=== PATIENT | female | born 1990 | race Caucasian/White ===

== ENCOUNTER 2017-09-13 14:26 | Emergency (ER) | payer BC, SELFPAY ==
[2017-09-13 14:28] VITALS: BP 153/106; PULSE 101; RESP 16; TEMP 36.4; O2SAT 100; BMI 43.4
[2017-09-13 14:57] VITALS: BP 150/79; PULSE 93; RESP 14; O2SAT 98
--- NOTE | 2017-09-13 15:16 | ED.VISSUMM ---
- ER Visit Summary Date of Service: 09/13/17 Chief Complaint: Abdominal pain History of Present Illness: The patient is a 27 F who presents with right-sided abdominal pain that has been getting worse over the past 4 days. Patient states her pain has been gradually getting worse. Patient denies any fevers or chills. Patient denies any nausea or vomiting. Patient denies any diarrhea. Patient denies any hematemesis, hematochezia, or melena. Denies any dysuria or hematuria. Patient states her last menstrual period was August 25. Patient describes her pain as sharp and throbbing. Patient denies any radiation of the pain. Physical Examination: Vital signs are stable. Patient is afebrile. Patient is in no acute distress. Oral mucosa is pink and moist. Neck is supple. Trachea is midline. Heart was regular rate and rhythm. Lungs are clear and equal bilaterally. There is good respiratory effort noted. Abdomen is soft. Bowel sounds are normal. There is right upper and right lower quadrant tenderness. There is no rebound or guarding noted. Cranial nerves II through XII are intact. There are no focal motor or sensory deficits noted. The remaining physical exam is within normal limits. Test Results: CT scan of the abdomen and pelvis showed a calcified gallstone but no evidence of cholecystitis. There is nonspecific ileus. There is no obstruction noted. CBC showed slight leukocytosis of 12.8. Conference of metabolic profile showed a slight elevation of the alk phos of 151 but was otherwise within normal limits. Urinalysis was normal. Emergency Department Course and Treatment: Patient was given a bolus of normal saline. Patient felt better on reevaluation. Patient was advised of her findings. Patient was instructed to follow-up with her primary care physician in 5-7 days for further evaluation. Patient understood and was agreeable with the plan. All questions were answered. Treatment Plan: Patient was given a prescription for Naprosyn for pain. Disposition: Discharge home Impression: Cholelithiasis, abdominal pain This note was generated with [employer] dictation software. It may contain incorrect words, spelling, and punctuation that were not noted in review of the chart prior to signing ED Disposition - Plan for ED Patient: Disposition: Home or Assisted Living Chief Complaint: Abd Pain Diagnosis: Abdominal pain, Cholelithiasis Instructions: ED Abdominal Pain Unkn Cause Prescriptions: Naproxen [Naprosyn] 500 mg PO BID PRN PRN #20 tab PRN Reason: Pain Referrals: Care Physician,No Primary [Primary Care Provider] -
--- NOTE | 2017-09-13 15:20 | CT_ITS ---
STUDY: CT ABDOMEN AND PELVIS WITHOUT CONTRAST REASON FOR EXAM: Female, 27 years old. Increasing lower abdominal pain RADIATION DOSAGE (If Supplied By Facility): CTDIvol = ( 23.83 ) mGy, DLP = ( 1244.17 ) mGycm TECHNIQUE: Transaxial images were obtained from the dome of the diaphragm to the symphysis pubis without oral contrast, and without intravenous contrast. Sagittal and coronal images were reconstructed. Individualized dose optimization techniques were used for this CT. COMPARISON: None. FINDINGS: The visualized lung bases are unremarkable. The visualized portions of the heart are within normal limits. Normal liver. There is a large solitary rim calcified gallstone within distended gallbladder without evidence for acute cholecystitis. Normal spleen. Normal pancreas. Normal bilateral adrenal glands. Normal right kidney. Normal left kidney. Normal visualized stomach. Mild nonspecific ileus pattern. No evidence for small bowel obstruction or pneumoperitoneum. Minor diverticular changes in the sigmoid colon without evidence for acute diverticulitis. The appendix is visualized and appears normal. Normal abdominal aorta. Normal inferior vena cava. Normal retroperitoneum. Normal urinary bladder. Uterus is mildly deviated towards the right. There are minor cystic changes of the ovaries. Normal abdominal wall. Normal osseous structures. CT/Abdomen/Pelvis without Cont IMPRESSION: Distended gallbladder with calcified gallstone without definitive evidence for acute cholecystitis Mild nonspecific ileus without evidence for small bowel obstruction. Minor diverticular disease of the sigmoid colon without evidence for acute diverticulitis Electronically Signed: Brent Cui MD at 17:33 EDT , Service support ,
[2017-09-13 15:34] LABS: Bacteria 0 SEEN /hpf (None Seen); Mucous, Urine 0 SEEN /hpf (<or=2+); Red Blood Cells-Urine 0 SEEN /hpf (0-5); White Blood Cells 0 SEEN /hpf (0-5)
[2017-09-13] MEDS: 0.9% Normal Saline 1,000 ML 1000 ML IV (15:44)
[2017-09-13 16:00] LABS: Color, Urine Yellow (Yellow); Glucose, Dipstick Normal (Normal); Ketone-Dipstick Negative (Negative); Leukocyte Esterase-Dipstick Negative /ul (Negative); Nitrite-Dipstick Negative (Negative); Occult Blood-Urine Negative /ul (Negative); Protein-Dipstick Negative (Negative); Urine Bilirubin Dipstick Negative (Negative); Urine Clarity Sl. Cloudy (Clear); Urine Urobilinogen Normal (Normal)
[2017-09-13 16:12] LABS: Internal QC Validated? YES +Cl - CLEAR BKGD; Pregnancy, Urine Negative Negative
[2017-09-13 16:25] LABS: Absolute Lymphocyte Count 2.61 X10^3/ul (0.83-4.51); Absolute Neutrophil Count 8.9 X10^3/uL (2.0-7.7); Basophil# 0.02 X10^3/uL; Basophil% 0.2 % (0-1); Eosinophil# 0.12 X10^3/uL; Eosinophils% 0.9 % (0-5); Hemoglobin 14.1 g/dl (12.0-15.0); Lymphocyte # 2.61 X10^3/ul (4.0); Lymphocyte % 20.5 % (19-41); Mean Corp Hgb Conc 32.8 g/gl (32-36); Mean Corpuscular Volume 85.5 fL (81-99); Mean Platelet Vol. 9.2 fl (6.2-12.0); Monocyte# 1.06 X10^3/uL; Monocyte% 8.3 % (0-10); Neutrophil # 8.92 X10^3/uL (2.7-7.7); Neutrophil % 69.9 % (47-70); POSITIVE COUNT NO; POSITIVE DIFFERENTIAL NO; POSITIVE MORPHOLOGY NO; Platelet Count 308 K/mm3 (150-450); RBC Distribution Width CV 13.5 % (11.6-14.6); RBC Distribution Width SD 42.1 fl (35.1-43.9); Red Blood Count 5.03 M/mm3 (4.2-5.4); White Blood Count 12.8 K/mm3 (4.4-11.0)
[2017-09-13 16:27] LABS: ALB/GLOB Ratio 0.7 RATIO (0.9-2.4); AST(SGOT) 18 U/L (15-37); Alanine Aminotransfer ALT/SGPT 30 U/L (13-56); Albumin, Serum 3.8 g/dL (3.2-5.0); Alkaline Phosphatase 151 U/L (45-117); Anion Gap 8 (5-15); BUN 10 mg/dL (7-18); BUN/Creat Ratio 17.3 RATIO (10-20); Calcium,Total 8.9 mg/dL (8.5-10.1); Chloride 104 mmol/L (98-107); Creatinine, Serum 0.58 mg/dL (0.55-1.02); EST Glomerular Filtration Rate 130 mL/min (>60); Est Glom Filt Rate - Afr Amer 158 mL/min (>60); Estimated Creatinine Clearance 149.57 ml/min; Globulin 5.1 g/dL (2.2-4.2); Glucose 81 mg/dL (74-106); Lipase 86 U/L (73-393); Potassium 3.8 mmol/L (3.5-5.1); Protein, Total 8.9 g/dL (6.4-8.2); Sodium Level 139 mmol/L (136-145)
[2017-09-13 16:30] LABS: Squamous Epithelial Cells - UA 0-5 SEEN /hpf (5-10)
[2017-09-13 16:51] VITALS: BP 164/80; PULSE 60; RESP 16; O2SAT 97
[2017-09-13 18:49] VITALS: BP 169/107; PULSE 94; RESP 16; O2SAT 95
[2017-09-13 18:50] VITALS: BP 169/107; PULSE 94; RESP 16; O2SAT 95
== END 2017-09-13 18:51 | disposition home or self-care (01) ==
PROVIDERS: Emergency Provider Emergency Medicine
DX: K80.20 Calculus of gallbladder without cholecystitis without obstruction (principal); R10.11 Right upper quadrant pain; R10.31 Right lower quadrant pain; D72.829 Elevated white blood cell count, unspecified; Z86.718 Personal history of other venous thrombosis and embolism; Z72.0 Tobacco use
CPT/HCPCS: 74176; 80053; 81001; 81025; 83690; 85025; 96360; 96361; 99283; J7030

== ENCOUNTER 2018-06-19 06:51 | Emergency (ER) | payer OTHER, SELFPAY ==
[2018-06-19 06:51] VITALS: BP 185/93; PULSE 99; RESP 16; TEMP 37.1; O2SAT 95; BMI 46.5
--- NOTE | 2018-06-19 07:08 | US_ITS ---
STUDY: ABDOMINAL ULTRASOUND - RIGHT UPPER QUADRANT REASON FOR VISIT: Female, 28 years old. Right upper quadrant pain x3 days TECHNIQUE: Ultrasound evaluation of the right upper quadrant was performed with real-time and static hess-scale imaging. TECHNICAL QUALITY: Adequate. COMPARISON: None. FINDINGS: Liver: The liver measures 21 cm. There is increased echogenicity consistent with fatty infiltration. The bile ducts are within normal limits. There is hepatic color flow. The direction of portal flow is hepatopetal. There is no demonstrated mass lesion. Gallbladder: Normal distended gallbladder. The gallbladder wall measures 2.7 mm. There is a positive sonographic Jarrell's sign. There is no pericholecystic fluid. Large stone measuring 2.9 x 2.5 cm near the gallbladder neck. There is also gallbladder sludge. Common Bile Duct (C.B.D.): The common bile duct measures 4.6 mm. Pancreas: Normal size of the head, body and tail of the pancreas. There is normal echogenicity of the pancreas. There is no demonstrated pancreatic mass or cyst. Right Kidney: Normal size of the right kidney. The right kidney measures 11.4 cm. Normal renal cortex. The right cortex measures 1.6 cm. There is no demonstrated renal mass or cyst. There is no right hydronephrosis. US/Gallbladder IMPRESSION: Positive sonographic Jarrell sign with large gallbladder stone near the gallbladder neck as well as prominently distended gallbladder. Gallbladder sludge is also noted. There is no evidence of wall thickening or pericholecystic fluid however. Hepatomegaly with hepatic steatosis. Electronically Signed: Seth Thorne DO at 8:18 EST Tel , Service support ,
[2018-06-19] MEDS: Ondansetron 4 MG/2 ML Vial IV (07:23)
[2018-06-19] MEDS: 0.9% Normal Saline 1,000 ML 1000 ML IV (07:23)
[2018-06-19] MEDS: Ketorolac 30 MG/ML Syringe IV (07:23)
--- NOTE | 2018-06-19 07:50 | ED.DCSUM_ITS ---
- ER Visit Summary Date of Service: 06/19/18 Chief Complaint: Abdominal pain History of Present Illness: The patient is a 28 F with no primary care physician. She reports that she has upper abdominal pain that began 3 days ago. Sick continuous aching, sharp pain. It is severe at worst and moderate curren tly. It is worsened by eating and relieved by nothing. She reports that she is been nausea and vomited twice. No blood in her emesis. She had one episode of diarrhea yesterday. No blood in her stools or black tarry stools. No dysuria or frequency. Her last menstrual period was 3 weeks ago. Patient reports that she does have a known gallstone. However, she denies any fatty or spicy food intolerance. Physical Examination: Vitals: Stable. Afebrile. General: Well-nourished and well-developed. Head: Normocephalic atraumatic. Neck: Supple, no lymphadenopathy. No JVD. Nontender. Cardiovascular: Regular rate and rhythm. No murmurs. Respiratory: No respiratory distress. Clear to auscultation bilaterally. Abdominal: Soft, moderate tenderness palpation in the epigastric region right upper quadrant, positive Jarrell's sign, nondistended, normal bowel sounds. No guarding, rebound, or peritoneal signs. Back: Nontender. Extremities: Nontender, no edema. Skin: Normal color, no rash. Neurologic: Alert and oriented ?3. Cranial nerves II through XII are intact. Normal strength and sensation. Psych: Normal affect. Test Results: CBC is more for a white count of 14.0 with 74 segmented neutrophils and 17 lymphocytes. Chem-7 is more for glucose 108. LFTs marked for an alk phos of 154. Lipase is 63. Patency test is negative. Right upper q uadrant ultrasound shows a positive Jarrell sign with a large gallbladder stone near the neck and a prominently distended gallbladder. There is sludge present. Wall is 2.7 mm. Common bile duct is 4.6 mm. There is no pericholecystic fluid. Emergency Department Course and Treatment: Patient had an IV placed. She was given Toradol and Zofran IV. She is resting comfortably. Treatment Plan: The patient was discussed with Dr. Weber. She feels well and would like to go home. She will be discharged instructed to follow-up Dr. Sherrie harkins in the office tomorrow. She is given prescription for [place] and Zofran. Return to the emergency department for any worsening symptoms. Disposition: To home in improved and stable condition. Impression: 1. Symptomatic cholelithiasis. This note was generated with [employer] dictation software. It may contain incorrect words, spelling, and punctuation that were not noted in review of the chart prior to signing ED Disposition - Plan for ED Patient: Chief Complaint: Abd Pain Instructions: ED Gallbladder Infec Poss Prescriptions: Hydrocodone Bitart/Apap 5-325 [[place] 5MG-325MG] 1 tablet PO Q4H PRN PRN 2 Days #10 tablet PRN Reason: Pain Ondansetron [Zofran Odt] 4 mg PO Q8H PRN PRN #10 tablet PRN Reason: Nausea Referrals: Gene Dickson MD [STAFF PHYSICIAN] - 1 Day for another exam
[2018-06-19 07:59] LABS: Absolute Lymphocyte Count 2.35 X10^3/ul (0.83-4.51); Absolute Neutrophil Count 10.4 X10^3/uL (2.0-7.7); Basophil# 0.02 X10^3/uL; Basophil% 0.1 % (0-1); Eosinophil# 0.04 X10^3/uL; Eosinophils% 0.3 % (0-5); Hematocrit 43.7 % (37-47); Hemoglobin 14.3 g/dl (12.0-15.0); Lymphocyte # 2.35 X10^3/ul (4.0); Lymphocyte % 16.8 % (19-41); Mean Corp Hgb Conc 32.7 g/gl (32-36); Mean Corpuscular Hgb 28.4 pg (27.0-32.0); Mean Corpuscular Volume 86.7 fL (81-99); Monocyte# 1.12 X10^3/uL; Neutrophil # 10.41 X10^3/uL (2.7-7.7); Neutrophil % 74.4 % (47-70); Platelet Count 362 K/mm3 (150-450); RBC Distribution Width CV 12.8 % (11.6-14.6); RBC Distribution Width SD 40.4 fl (35.1-43.9); Red Blood Count 5.04 M/mm3 (4.2-5.4)
[2018-06-19 08:02] LABS: POSITIVE COUNT NO; POSITIVE DIFFERENTIAL NO; POSITIVE MORPHOLOGY NO
[2018-06-19 08:14] LABS: ALB/GLOB Ratio 0.7 RATIO (0.9-2.4); AST(SGOT) 20 U/L (15-37); Alanine Aminotransfer ALT/SGPT 38 U/L (13-56); Albumin, Serum 3.8 g/dL (3.2-5.0); Alkaline Phosphatase 154 U/L (45-117); Anion Gap 10 (5-15); BUN 7 mg/dL (7-18); Calcium,Total 9.1 mg/dL (8.5-10.1); Chloride 103 mmol/L (98-107); Creatinine, Serum 0.58 mg/dL (0.55-1.02); EST Glomerular Filtration Rate 128 mL/min (>60); Est Glom Filt Rate - Afr Amer 155 mL/min (>60); Estimated Creatinine Clearance 148.22 ml/min; Globulin 5.4 g/dL (2.2-4.2); Glucose 108 mg/dL (74-106); Lipase 63 U/L (73-393); Potassium 3.7 mmol/L (3.5-5.1); Protein, Total 9.2 g/dL (6.4-8.2); Sodium Level 137 mmol/L (136-145)
[2018-06-19 08:18] LABS: Pregnancy, Serum, hCG Quali. NEGATIVE Negative (0-9 Nonpreg)
[2018-06-19 08:51] VITALS: RESP 17
[2018-06-19 09:58] VITALS: PULSE 78; RESP 17; O2SAT 98
== END 2018-06-19 09:59 | disposition home or self-care (01) ==
PROVIDERS: Emergency Provider Emergency Medicine
DX: K80.20 Calculus of gallbladder without cholecystitis without obstruction (principal); Z72.0 Tobacco use
CPT/HCPCS: 76705; 80053; 83690; 84703; 85025; 96361; 96374; 96375; 99283; J7030; A4216; J2405

== ENCOUNTER 2018-06-21 06:37 | Day surgery (SDC) | payer OTHER, SELFPAY ==
[2018-06-21] VITALS (7 sets, daily range): BP systolic 106–167; BP diastolic 69–93; PULSE 65–88; RESP 16–18; TEMP 36.4–36.6; O2SAT 96–100; BMI 46.3
--- NOTE | 2018-06-21 | GALL_PTH ---
PATIENT: SKYLAR JIMENEZ LOC: [facility] [place] U#:[id number] AGE/SX: 28/F ROOM: RE06/21/[address]: Dr. Cora Cevallos MD : [id number] BED: DIS: 06/21/2018 SPEC #: [id number] RECD: 06/21/18 14:41 STATUS: VIANEY REMarce #: [id number] NICK: 06/21/18 00:[address]: Cora Cevallos DEPT: SURGICAL PATHOLOGY RECD BY: Jose Rodriguez ENTERED: 06/21/18 14:41 SP TYPE: PUMA ROSALES DR: No Primary Care Phys Tissues: Gallbladder, NOS Procedures: Surgery Specimen Level III HEADER OPERATION: Laparoscopic cholecystectomy PRE-OP DIAGNOSIS: Cholelithiasis TISSUE SUBMITTED: Gallbladder MICROSCOPIC DIAGNOSIS Gallbladder, cholecystectomy: Acute and chronic cholecystitis and cholelithiasis. SJ:kasi 06/22/18 MICROSCOPIC DESCRIPTION Slides are reviewed. GROSS DESCRIPTION Received is one container labeled with the patient's name and designated gallbladder. The specimen consists of a gallbladder measuring 12 cm in length and up to 5.5 cm in diameter. The external surface is pink-akins, smooth and glistening for the most part. Focally it is granular, hemorrhagic and contains cautery artifact. The gallbladder contains hemorrhagic bile and contains one ovoid brown stone measuring 3.5 x 2.5 x 2.5 cm. The mucosa is bile-stained and without any mass lesions. The gallbladder wall measures up to 0.5 cm in thickness. Renal Technician sections from the gallbladder and the cystic duct are submitted in one cassette. / SJ:rg 06/21/18 TC:2 CPT: 84348
--- NOTE | 2018-06-21 06:44 | EKG12_ITS ---
Test Reason : PREOP Blood Pressure : / mmHG Vent. Rate : 079 BPM Atrial Rate : 079 BPM P-R Int : 154 ms QRS Dur : 084 ms QT Int : 362 ms P-R-T Axes : 076 033 044 degrees QTc Int : 415 ms Normal sinus rhythm Normal ECG Confirmed by CAROLINA BOWMAN, MAGAN ([id number]), writer editor ARLETTE BROWN ([id number]) on 06/22/2018 4:19:37 PM Referred By: Cora Cevallos Confirmed By:MAGAN FIGUEROA MD
[2018-06-21 07:01] LABS: Internal QC Validated? YES +Cl - CLEAR BKGD; Pregnancy, Urine Negative Negative
--- NOTE | 2018-06-21 08:17 | OP.PN_ITS ---
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: Alia Salcedo Pre-Operative Diagnosis: cholelithiasis, right upper quadrant abdominal pain Post-Operative Diagnosis: cholelithiasis, right upper quadrant abdominal pain, acute on chronic cholecystitis with obstruction, hydrops Surgery/Procedure Performed:: laparoscopic cholecystectomy Description of Surgical Findings:: acute on chronic cholecystitis with large obstructing stone - hydrops Estimated Blood Loss: 30 ml Specimen's removed: gallbladder and contents Type of Anesthesia:: General ASA Class: ASA3 Severe Disease - Admit VTE Documentation VTE Present on Admission: Yes VTE Mechan Device Prophylaxis: SCD's
--- NOTE | 2018-06-21 08:17 | PCM.DC.GB ---
Discharge Diet: No Restrictions - avoid carbonated beverages for a couple of days drink plenty of fluids such as water Discharge Activity: Return to Normal Activity, May not drive while taking narcotic pain medications. Return to work on:: 07/03/18 - see lifting restrictions below Lifting Restrictions: no lifting/pushing/pulling greater than 20 pounds for about 2 weeks Additional Activity Instructions:: lifting restriction in place until 07/07/18 Call your doctor if your incision/area has: Continuous Slow Oozing, Foul Smelling Discharge Call your doctor if you observe: Fever of 101 or Higher Additional Dressing/Incision Instructions:: Leave dressings in place. May shower. Do not soak - no tub baths/swimming until further notice Additional Instructions: Pain medication regimen: may take the following - acetaminophen 650 mg, then in three hours take 600 mg ibuprofen, then in three hours take 650 mg acetaminophen, then in three hours take 600 mg ibuprofen, and so on (can continue this for a few days) may take narcotic pain medication for breakthrough pain and at night to help you go to sleep Allergies/Adverse Reactions: Allergies No Known Allergies Allergy (Verified 06/20/18 14:43) Medications to take at Discharge Ondansetron [Zofran Odt] 4 mg PO Q8H PRN PRN #10 tablet 06/19/18 Oxycodone [Oxyir] 5 mg PO Q8H PRN PRN 5 Days #15 tab 06/21/18 The following prescriptions were given: Oxycodone [Oxyir] 5 mg PO Q8H PRN PRN 5 Days #15 tab PRN Reason: Mod-Severe Pain (4-10/10) Primary Care Physician: Care Physician,No Primary [Primary Care Provider] - Test Results: Test results from this visit will be discussed in further detail at your follow-up appointment, if applicable. Please Follow Up With: Cora Cevallos MD - call When: to be seen in 1-2 weeks, please call for date and time, thank you
--- NOTE | 2018-06-21 08:21 | DCINST_ITS ---
Discharge Diet: No Restrictions - avoid carbonated beverages for a couple of days drink plenty of fluids such as water Discharge Activity: Return to Normal Activity, May not drive while taking narcotic pain medications. Return to work on:: 07/03/18 - see lifting restrictions below Lifting Restrictions: no lifting/pushing/pulling greater than 20 pounds for about 2 weeks Additional Activity Instructions:: lifting restriction in place until 07/07/18 Call your doctor if your incision/area has: Continuous Slow Oozing, Foul Smelling Discharge Call your doctor if you observe: Fever of 101 or Higher Additional Dressing/Incision Instructions:: Leave dressings in place. May shower. Do not soak - no tub baths/swimming until further notice Additional Instructions: Pain medication regimen: may take the following - acetaminophen 650 mg, then in three hours take 600 mg ibuprofen, then in three hours take 650 mg acetaminophen, then in three hours take 600 mg ibuprofen, and so on (can continue this for a few days) may take narcotic pain medication for breakthrough pain and at night to help you go to sleep Allergies/Adverse Reactions: Allergies No Known Allergies Allergy (Verified 06/20/18 14:43) Medications to take at Discharge Ondansetron [Zofran Odt] 4 mg PO Q8H PRN PRN #10 tablet 06/19/18 Oxycodone [Oxyir] 5 mg PO Q8H PRN PRN 5 Days #15 tab 06/21/18 The following prescriptions were given: Oxycodone [Oxyir] 5 mg PO Q8H PRN PRN 5 Days #15 tab PRN Reason: Mod-Severe Pain (4-10/10) Primary Care Physician: Care Physician,No Primary [Primary Care Provider] - Test Results: Test results from this visit will be discussed in further detail at your follow- up appointment, if applicable. Please Follow Up With: Cora Cevallos MD - call When: to be seen in 1-2 weeks, please call for date and time, thank you
--- NOTE | 2018-06-21 08:28 | OP.PCM_ITS ---
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 Appropriate time out protocol was followed. The patient was then placed under general endotracheal anesthesia. The abdomen was then prepped with a sterile surgical skin preparation and sterile surgical drapes were placed. An area superior to the umbilicus was grasped with penetrating clamps and the skin and subcutaneous tissues were infiltrated with 0.5% marcaine with epinephrine. A skin incision was then made with a 15 blade scalpel. The anterior abdominal wall was elevated and a Veress needle was carefully inserted into the intraabdominal cavity. It was checked to be in the proper position with a normal saline drop test. A CO2 pneumoperitoneum was then created. Once this was achieved, then the Veress needle was removed and an 11mm trocar was placed in its stead. A 10mm laparoscope was then inserted into the trocar and careful attention was directed to the intraabdominal contents. There was no evidence of injury to any intraabdominal organs from insertion of the Veress needle or the trocar. Under direct visualization, a 5mm subxiphoid troc ar and two lateral 5mm right subcostal trocars were placed. The skin and subcutaneous tissues at these sites were infiltrated with 0.5% marcaine with epinephrine prior to placement of these trocars. Attention was then directed to the right upper quadrant of the abdomen. The gallbladder was grossly distended and the wall was edematous. There was omental adhesions adherent to the free surface of the gallbladder. This was taken down using blunt dissection. Any hemorrhage was adequately controlled with electrocautery. Because the gallbladder was so distended, needle trocar aspiration was done to aspirate and empty the gallbladder contents as much as possible so as to allow for grasping of the gallbladder. At least 90 ml of purulent pale yellow fluid was obtained. Graspers were placed in the lateral trocars to grasp the distal aspect of the gallbladder and direct it cephalad and to grasp the gallbladder at Campos?s pouch and direct it laterally. Dissection then began on the proximal gallbladder continuing down to the area of the triangle of Calot to bluntly dissect out the cystic duct. There was a large amount of inflammation in this area, and therefore dissection took some time to identify the structures. The neck of the gallbladder was identified and blunt dissection continued to dissect out a segment of the cystic duct. A clip was then placed on the neck of the gallbladder. Two clips were placed proximally and the cystic duct was then transected. The cystic artery was visualized and bluntly isolated and then two clips were placed proximally and one clip distally and then it was transected between the proximal and distal clips. The gallbladder was then from the liver bed using electrocautery. This took some time due to the dense inflammation and inflammatory oozing of the tissues. The gallbladder was also enlarged from its distention due to chronic disease. It was from the liver bed and placed in an Endobag. It was brought out of the periumbilical port, however, the fascia had to be further incised larger to allow for a large enough opening to extract the gallbladder, given that the stone was at least 3 cm in size. It was brought out and placed on the back table. The liver bed was carefully examined. There was some inflammatory oozing for which surgicel was applied. No evidence of bile leakage or bleeding after final inspection. The cystic duct stump and cystic artery stump had their clips intact and there was no evidence of bile leakage or bleeding. The remainder of the abdomen was grossly normal. The CO2 was released and all trocars removed intact. The periumbilical fascia was approximated with a [id number] 0 vicryl suture via Granny needle closure. All skin incision were closed with 4-0 monocryl in a subdermal fashion. Cavilol and Steristrips were used to reinforce the skin closure. Sterile dressings were applied to all wounds. The patient was extubated and brought to the Recovery Room in stable condition. - Complications none noted - Admit VTE Documentation VTE Present on Admission: Yes VTE Mechan Device Prophylaxis: SCD's
[2018-06-21] MEDS: Bupiv/Epi 0.5% Mpf 30 ML Vial (10:18)
[2018-06-21] MEDS: oxyCODONE 5 MG Tablet PO (12:08)
--- OUTSIDE RECORDS SUMMARY | 2018-08-25 22:13 | XMS RPT_ITS ---
:1990 Author Organization OH[facility] Care Team Providers Name Role Phone YFN ENGLISH (PA) Attending Unavailable CORA CEVALLOS Attending Unavailable Primay Care Physicia, No Primary Care Unavailable Ranulfo Dey Attending Unavailable Cora Cevallos Attending Unavailable Cora Cevallos Referring Unavailable Primay Care Physicia, No Primary Care Unavailable Primay Care Physicia, No Primary Care Unavailable Miguel Ángel Roland Attending Unavailable PROBLEMS PROBLEMS DATE TYPE CONDITION / CODE ATTENDING STATUS SOURCE 06/21/2018 Unknown G89.18 - Other acute Cora Cevallos postprocedural pain Community / G89.18(ICD-10) Hospital Repository 06/19/2018 Unknown K80.20 - Calculus of Ranulfo Dey Active [place] gallbladder without Community cholecystitis Hospital without obstruction Repository / K80.20(ICD-10) PROCEDURES PROCEDURES No Procedure Records FoundRESULTS RESULTS PROGRESS Observed: 06/29/2018 Status: COMPLETED Source: [place] 4:43 PM [facility] REPOSITORY HNO ID: [id number] Author: Cora Cevallos Service: (none) Author Type: Physician Type: Progress Notes Filed: 07/01/2018 6:01 PM Note Text: Nicki is s/p laparoscopic cholecystectomy surgery at [facility] on 06/21/18 She states that she is doing well. She denies any problems. Examination: abdomen is soft and benign, wounds are well healed, no evidence of infection Impression: s/p laparoscopic cholecystectomy Plan: follow up as per needed. Patient to return to her primary physician for medical care. CNOV Observed: 06/29/2018 Status: COMPLETED Source: [place] 2:10 PM [facility] REPOSITORY Office Visit (GENSWS) SONNICKI ([id number]) 1990 F Date Time Provider Department 06/29/18 2:10 PM CORA CEVALLOS During your visit today, we recorded the following information about you: Cora Cevallos MD 07/01/2018 6:01 PM Signed Nicki is s/p laparoscopic cholecystectomy surgery at [facility] on 06/21/18 She states that she is doing well. She denies any problems. Examination: abdomen is soft and benign, wounds are well healed, no evidence of infection Impression: s/p laparoscopic cholecystectomy Plan: follow up as per needed. Patient to return to her primary physician for medical care. Referring Provider: SELF [200] Allergies As of Date: 06/29/2018 (No Known Allergies) Date Reviewed: 06/29/2018 Reviewed by: Jhoan Rome LPN - Fully Assessed Reason for Visit: Post Op [174] Primary Visit Diagnosis:Status post laparoscopic cholecystectomy [Z90.49] Prescriptions as of 06/29/2018 Sig: HYDROCODONE 5 MG-ACETAMINOPHE* EVERY 4 HOURS NEEDED PRN F* ONDANSETRON 4 MG DISINTEGRATI* EVERY 8 HOURS NEEDED PRN F* MISOPROSTOL 200 MCG TABLET 2 TABLETS PO NIGHT PRIOR TO A* Medication notes this encounter HYDROCODONE 5 MG-ACETAMINOPHEN 325 MG TABLET >> Jhoan Rome [facility] 06/29/2018 2:13 PM >> JHOAN ROME GREGORY [facility] Jun 29, 2018 2:13 PM please d/c ONDANSETRON 4 MG DISINTEGRATING TABLET >> Jhoan Rome [facility] 06/29/2018 2:14 PM >> JHOAN ROME LPN [facility] Jun 29, 2018 2:14 PM please d/c MISOPROSTOL 200 MCG TABLET >> Jhoan Latricia [facility] 06/29/2018 2:14 PM >> LATRICIA JHOAN GREGORY [facility] Jun 29, 2018 2:14 PM Please D/c Problem List As Of Date 06/29/2018 Noted Resolved PCOS (polycystic ovarian syndrome) [E28.2] INVALID FOR* Contraception [Z30.9] INVALID FOR* DVT of leg (deep venous thrombosis) [I82.409] INVALID FOR* Tobacco use disorder [F17.200] Encounter Status:Closed by MD CORA CEVALLOS on 07/01/18 OPERATIVE REPORT Observed: 06/23/2018 Status: F Source: [place] 4:34 PM [facility] Medical Records Department [address] [place] [id number] Operative Report 06/21/18 0828 MR#: [id number] Acct: [id number] Name: NICKI GAMBLE Rep #: [id number] : 1990 28 From: Cora Cevallos MD PCP: Care Physician, No Primary Status: [facility] Location: [facility] Report of Operation Date of Procedure: 06/21/18 Pre-Operative Diagnosis: cholelithiasis, right upper quadrant abdominal pain Post-Operative Diagnosis: cholelithiasis, right upper quadrant abdominal pain, acute on chronic cholecystitis with obstruction/hydrops Surgery/Procedure Performed:: laparoscopic cholecystectomy Description of Surgical Findings:: acute on chronic cholecystitis with large obstructing stone with hydrops direct care specialist: Alia Salcedo Type of Anesthesia:: General Anesthesiologist: Rodrigue Armstrong Specimen's removed: gallbladder and contents Drains: none Estimated Blood Loss (mL): 30 Fluids Replaced: 1500 ml RL Description of Procedure: After informed consent was given, the patient was brought to the Operating Room and placed in the supine position. Appropriate time out protocol was followed. The patient was then placed under general endotracheal anesthesia. The abdomen was then prepped with a sterile surgical skin preparation and sterile surgical drapes were placed. An area superior to the umbilicus was grasped with penetrating clamps and the skin and subcutaneous tissues were infiltrated with 0.5% marcaine with epinephrine. A skin incision was then made with a 15 blade scalpel. The anterior abdominal wall was elevated and a Veress needle was carefully inserted into the intraabdominal cavity. It was checked to be in the proper position with a normal saline drop test. A CO2 pneumoperitoneum was then created. Once this was achieved, then the Veress needle was removed and an 11mm trocar was placed in its stead. A 10mm laparoscope was then inserted into the trocar and careful attention was directed to the intraabdominal contents. There was no evidence of injury to any intraabdominal organs from insertion of the Veress needle or the trocar. Under direct visualization, a 5mm subxiphoid trocar and two lateral 5mm right subcostal trocars were placed. The skin and subcutaneous tissues at these sites were infiltrated with 0.5% marcaine with epinephrine prior to placement of these trocars. Attention was then directed to the right upper quadrant of the abdomen. The gallbladder was grossly distended and the wall was edematous. There was omental adhesions adherent to the free surface of the gallbladder. This was taken down using blunt dissection. Any hemorrhage was adequately controlled with electrocautery. Because the gallbladder was so distended, needle trocar aspiration was done to aspirate and empty the gallbladder contents as much as possible so as to allow for grasping of the gallbladder. At least 90 ml of purulent pale yellow fluid was obtained. Graspers were placed in the lateral trocars to grasp the distal aspect of the gallbladder and direct it cephalad and to grasp the gallbladder at Campos s pouch and direct it laterally. Dissection then began on the proximal gallbladder continuing down to the area of the triangle of Calot to bluntly dissect out the cystic duct. There was a large amount of inflammation in this area, and therefore dissection took some time to identify the structures. The neck of the gallbladder was identified and blunt dissection continued to dissect out a segment of the cystic duct. A clip was then placed on the neck of the gallbladder. Two clips were placed proximally and the cystic duct was then transected. The cystic artery was visualized and bluntly isolated and then two clips were placed proximally and one clip distally and then it was transected between the proximal and distal clips. The gallbladder was then from the liver bed using electrocautery. This took some time due to the dense inflammation and inflammatory oozing of the tissues. The gallbladder was also enlarged from its distention due to chronic disease. It was from the liver bed and placed in an Endobag. It was brought out of the periumbilical port, however, the fascia had to be further incised larger to allow for a large enough opening to extract the gallbladder, given that the stone was at least 3 cm in size. It was brought out and placed on the back table. The liver bed was carefully examined. There was some inflammatory oozing for which surgicel was applied. No evidence of bile leakage or bleeding after final inspection. The cystic duct stump and cystic artery stump had their clips intact and there was no evidence of bile leakage or bleeding. The remainder of the abdomen was grossly normal. The CO2 was released and all trocars removed intact. The periumbilical fascia was approximated with a [id number] 0 vicryl suture via Granny needle closure. All skin incision were closed with 4-0 monocryl in a subdermal fashion. Cavilol and Steristrips were used to reinforce the skin closure. Sterile dressings were applied to all wounds. The patient was extubated and brought to the Recovery Room in stable condition. - Complications none noted - Admit VTE Documentation VTE Present on Admission: Yes VTE Mechan Device Prophylaxis: SCD's 06/23/18 1634 <Electronically signed by Cora Cevallos MD> Date Cora Cevallos MD CC: No Primary Care Physician; Cora Cevallos MD Signed EMERGENCY DEPARTMENT Observed: 06/23/2018 Status: F Source: [place] SUMMARY 12:14 AM [facility] REPOSITORY [facility] Medical Records Department [address] [place] [address] Emergency Department Summary 06/19/18 0748 MR#: [id number] Acct: [id number] Name: NICKI GAMBLE Rep #: [id number] : 1990 28 From: Ranulfo Dey MD PCP: Care Physician, No Primary Status: DEP ER - ER Visit Summary Date of Service: 06/19/18 Chief Complaint: Abdominal pain History of Present Illness: The patient is a 28 F with no primary care physician. She reports that she has upper abdominal pain that began 3 days ago. Sick continuous aching, sharp pain. It is severe at worst and moderate currently. It is worsened by eating and relieved by nothing. She reports that she is been nausea and vomited twice. No blood in her emesis. She had one episode of diarrhea yesterday. No blood in her stools or black tarry stools. No dysuria or frequency. Her last menstrual period was 3 weeks ago. Patient reports that she does have a known gallstone. However, she denies any fatty or spicy food intolerance. Physical Examination: Vitals: Stable. Afebrile. General: Well-nourished and well-developed. Head: Normocephalic atraumatic. Neck: Supple, no lymphadenopathy. No JVD. Nontender. Cardiovascular: Regular rate and rhythm. No murmurs. Respiratory: No respiratory distress. Clear to auscultation bilaterally. Abdominal: Soft, moderate tenderness palpation in the epigastric region right upper quadrant, positive Jarrell's sign, nondistended, normal bowel sounds. No guarding, rebound, or peritoneal signs. Back: Nontender. Extremities: Nontender, no edema. Skin: Normal color, no rash. Neurologic: Alert and oriented 3. Cranial nerves II through XII are intact. Normal strength and sensation. Psych: Normal affect. Test Results: CBC is more for a white count of 14.0 with 74 segmented neutrophils and 17 lymphocytes. Chem-7 is more for glucose 108. LFTs marked for an alk phos of 154. Lipase is 63. Patency test is negative. Right upper quadrant ultrasound shows a positive Jarrell sign with a large gallbladder stone near the neck and a prominently distended gallbladder. There is sludge present. Wall is 2.7 mm. Common bile duct is 4.6 mm. There is no pericholecystic fluid. Emergency Department Course and Treatment: Patient had an IV placed. She was given Toradol and Zofran IV. She is resting comfortably. Treatment Plan: The patient was discussed with Dr. Weber. She feels well and would like to go home. She will be discharged instructed to follow-up Dr. Weber in the office tomorrow. She is given prescription for [place] and Zofran. Return to the emergency department for any worsening symptoms. Disposition: To home in improved and stable condition. Impression: 1. Symptomatic cholelithiasis. This note was generated with Mapidy dictation software. It may contain incorrect words, spelling, and punctuation that were not noted in review of the chart prior to signing ED Disposition - Plan for ED Patient: Chief Complaint: Abd Pain Instructions: ED Gallbladder Infec Poss Prescriptions: Hydrocodone Bitart/Apap 5-325 [[place] 5MG-325MG] 1 tablet PO Q4H PRN PRN 2 Days #10 tablet PRN Reason: Pain Ondansetron [Zofran Odt] 4 mg PO Q8H PRN PRN #10 tablet PRN Reason: Nausea Referrals: Gene Dickson MD [STAFF PHYSICIAN] - 1 Day for another exam What to do if you have Problems For any increased pain, shortness of breath, bleeding, nausea or vomiting, chest pain, or any unexpected problems, contact your Primary Care Provider. Call [facility] ([phone]) or report to the closest Emergency Room. Call 911 if necessary. 06/23/18 0014 <Electronically signed by Ranulfo Dey MD> Date Ranulfo Dey MD Cosigner Signature (If Indicated): Date CC: No Primary Care Physician 12 LEAD ELECTROCARDIOGRAM Observed: 06/22/2018 Status: F Source: [place] 4:20 PM [facility] REPOSITORY [facility] Cardiovascular Services [facility] [place] [address] 12 Lead EKG 06/21/18 0721 MR#: [id number] Acct: [id number] Name: NICKI GAMBLE Rep #: [id number] : 1990 28 From: Sea Figueroa MD Attending Dr: Cora Cevallos MD Status: DEP [facility] Ordering Dr: Ben Wallace MD Date: 06/21/18 Location: [facility] Sex: F C Admitted: Test Reason : PREOP Blood Pressure : / mmHG Vent. Rate : 079 BPM Atrial Rate : 079 BPM P-R Int : 154 ms QRS Dur : 084 ms QT Int : 362 ms P-R-T Axes : 076 033 044 degrees QTc Int : 415 ms Normal sinus rhythm Normal ECG Confirmed by CAROLINA BOWMAN, SEA ([id number]), metropolitan editor ARLETTE BROWN ([id number]) on 06/22/2018 4:19:37 PM Referred By: Cora Cevallos Confirmed By:SEA FIGUEROA MD 06/22/18 1619 Date Sea Figueroa MD CC: No Primary Care Physician; Ben Wallace MD; Cora Cevallos MD Signed DISCHARGE INSTRUCTION Observed: 06/21/2018 Status: F Source: [place] 8:28 AM [facility] Medical Records Department [address] [place] [address] Instructions for Home/Discharge Instructions 06/21/18 0817 MR#: [id number] Acct: [id number] Name: NICKI GAMBLE Rep #: [id number] : 1990 28 From: Cora Cevallos MD PCP: Care Physician, No Primary Status: REG [facility] Discharge Diet: No Restrictions - avoid carbonated beverages for a couple of days drink plenty of fluids such as water Discharge Activity: Return to Normal Activity, May not drive while taking narcotic pain medications. Return to work on:: 07/03/18 - see lifting restrictions below Lifting Restrictions: no lifting/pushing/pulling greater than 20 pounds for about 2 weeks Additional Activity Instructions:: lifting restriction in place until 07/07/18 Call your doctor if your incision/area has: Continuous Slow Oozing, Foul Smelling Discharge Call your doctor if you observe: Fever of 101 or Higher Additional Dressing/Incision Instructions:: Leave dressings in place. May shower. Do not soak - no tub baths/swimming until further notice Additional Instructions: Pain medication regimen: may take the following - acetaminophen 650 mg, then in three hours take 600 mg ibuprofen, then in three hours take 650 mg acetaminophen, then in three hours take 600 mg ibuprofen, and so on (can continue this for a few days) may take narcotic pain medication for breakthrough pain and at night to help you go to sleep Allergies/Adverse Reactions: Allergies No Known Allergies Allergy (Verified 06/20/18 14:43) Medications to take at Discharge Ondansetron [Zofran Odt] 4 mg PO Q8H PRN PRN #10 tablet 06/19/18 Oxycodone [Oxyir] 5 mg PO Q8H PRN PRN 5 Days #15 tab 06/21/18 The following prescriptions were given: Oxycodone [Oxyir] 5 mg PO Q8H PRN PRN 5 Days #15 tab PRN Reason: Mod-Severe Pain (4-03/15) Primary Care Physician: Care Physician,No Primary [Primary Care Provider] - Test Results: Test results from this visit will be discussed in further detail at your follow-up appointment, if applicable. Please Follow Up With: Cora Cevallos MD - call When: to be seen in 1-2 weeks, please call for date and time, thank you 06/21/18 0828 <Electronically signed by Cora Cevallos MD> Date Cora Cevallos MD CC: No Primary Care Physician Signed ,URINE Collected: 06/21/2018 Status: F Source: [place] 6:45 AM [facility] REPOSITORY Order Comment: Reason for Laboratory Test PREOP TYPE CODE TESTS RESULT OUT OF REFERENCE UNITS RANGE LAB L400.8000 Negative Normal HCGUQUAL Negative Result Comment: Very dilute urine specimens, as indicated by a low specific gravity, may not contain education courses sales representative levels of hCG. If is still suspected, a first morning urine specimen should be collected 48 hours later and tested. Performed By: #### [id number] #### [facility] [address] [place], [address] GALLBLADDER Observed: 06/21/2018 Status: F Source: [place] 12:00 AM [facility] REPOSITORY Patient: NICKI GAMBLE : 1990 (28/F) Acct Num: [id number] Phys: Mart BOWMAN,[place] Unit Num: [id number] Loc: [facility] Specimen: [id number] Received: 06/21/181440 Spec Type: GALLBLADDE TISSUES 1 TISSUES: Gallbladder, NOS GROSS DESCRIPTION Received is one container labeled with the patient's name and designated gallbladder. The specimen consists of a gallbladder measuring 12 cm in length and up to 5.5 cm in diameter. The external surface is pink- akins, smooth and glistening for the most part. Focally it is granular, hemorrhagic and contains cautery artifact. The gallbladder contains hemorrhagic bile and contains one ovoid brown stone measuring 3.5 x 2.5 x 2.5 cm. The mucosa is bile-stained and without any mass lesions. The gallbladder wall measures up to 0.5 cm in thickness. [place] sections from the gallbladder and the cystic duct are submitted in one cassette. / REILLY:kasi 06/21/18 TC:2 CPT: 68176 HEADER OPERATION: Laparoscopic cholecystectomy PRE-OP DIAGNOSIS: Cholelithiasis TISSUE SUBMITTED: Gallbladder MICROSCOPIC DESCRIPTION Slides are reviewed. MICROSCOPIC DIAGNOSIS Gallbladder, cholecystectomy: Acute and chronic cholecystitis and cholelithiasis. SJ:kasi 06/22/18 Signed Jaime Brooks MD 06/22/18 <signature on file> Performed By: #### PGALL #### [facility] [address] [place], [address] PROGRESS Observed: 06/20/2018 Status: COMPLETED Source: [place] 3:46 PM [facility] REPOSITORY HNO ID: [id number] Author: Yfn English (Pa) Service: (none) Author Type: Physician [employer] Physician Type: Progress Notes Filed: 06/20/2018 4:25 PM Note Text: HISTORY AND PHYSICAL Nicki Gamble 1990 REFERRING PHYSICIAN: [place] Hyde* CHIEF COMPLAINT: Consult (Consult gallbladder) HPI: Nicki is a 28 year old female with a complaint of right upper quadrant pain. The patient has had symptoms of constant right upper quadrant discomfort for 4 days. The symptoms have increased during that time which prompted her to present to the emergency department yesterday. The pain does not radiate to the back and shoulder, though she does note some generalized discomfort across her entire abdomen. Food does aggravate her symptoms and she has had a few episodes of emesis and one episode of diarrhea, states has not been eating much the last couple of days because of this. Alleviating factors include: none except for some mild relief from the hydrocodone prescribed by ED. Patient states looking back she thinks she has had some intermittent similar although milder episodes of abdominal in the past. She denies any fever or chills. The patient was seen by the emergency room physician yesterday. Nicki underwent an ultrasound which demonstrated cholelithiasis and sludge. The patient is referred for evaluation and treatment. Patient's past medical history is significant for polycystic ovarian syndrome and a past DVT in 2011 which she states was related to taking control pills. She denies any personal or family history of clotting disorders. Denies any known cardiac or pulmonary issues. She states she has not had any prior surgeries other than dental procedures in the past. SIGNIFICANT MEDICAL PROBLEMS: PAST MEDICAL HISTORY Diagnosis Date - DVT of leg (deep venous thrombosis) ([facility]) 08/12/2011 left - Low grade squamous intraepithelial lesion (LGSIL) on cervical Pap smear 07/10/2015 - Morbid obesity ([facility]) - PCOS (polycystic ovarian syndrome) - Tobacco use disorder OPERATIONS: PAST SURGICAL HISTORY Procedure Laterality Date - VAGINOSCOPY 08/18/2015 CURRENT MEDICATIONS: Current Outpatient Prescriptions: HYDROcodone-acetaminophen (NORCO) 5-325 mg per tablet EVERY 4 HOURS NEEDED PRN For Pain Disp: Rfl: ondansetron orally disintegrating (ZOFRAN ODT) 4 mg disintegrating tablet EVERY 8 HOURS NEEDED PRN For Nausea Disp: Rfl: misoprostol (CYTOTEC) 200 mcg tablet 2 TABLETS PO NIGHT PRIOR TO APPOINTMENT AND REPEAT IN AM Disp: 4 tablet Rfl: 0 No current facility-administered medications for this visit. ALLERGIES: Patient has no known allergies. 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 - Hypertension Father - other (Vertigo [Other]) Paternal Grandmother - Asthma Paternal Grandmother - Diabetes Paternal Grandfather REVIEW OF SYMPTOMS: The review of systems data was entered by the nurse and reviewed by me Nursing Notes: Ritu Hearn LPN 06/20/2018 4:15 PM Signed REVIEW OF SYSTEMS: General: The patient denies fatigue, denies weight loss, denies weight gain, denies feeling hot, and denies feelings of cold. Eyes: The patient denies glaucoma, denies eye injury/surgery, wears glasses or contacts. Ear/Nose/Throat: The patient denies allergies, denies hayfever, NOTES ear infections, and denies bloody noses. Cardiovascular: The patient denies chest pain, denies heart disease, denies high blood pressure,denies cardiac stent, denies prior heart attack, denies irregular heart beat, denies high cholesterol, denies poor circulation, denies heart failure, other cardiac issues, denies claudication, denies cold feet, denies peripheral arterial stent. Respiratory: The patient denies tuberculosis, denies pneumonia, denies frequent cough, denies pulmonary embolism, denies shortness of breath, and denies coughing up blood. Gastrointestinal: The patient denies difficulty swallowing, denies acid reflux, denies ulcers, denies vomiting, denies jaundice/hepatitis, denies gallbladder problems, denies black or tarry stools, denies hemorrhoids, denies bleeding from rectum, denies diverticulitis, denies constipation, denies diarrhea, denies loss of stool control, and denies hernias. Kidney/Bladder: The patient denies kidney stones, denies urine infections, and denies bloody urine. Skin: The patient denies a history of skin cancer, denies bleeding/changing moles, and denies a history of skin rash. Neurologic: The patient denies a history of epilepsy/convulsions, denies headaches, denies head/spinal injuries, and denies stroke/TIA. Psychiatric: The patient denies psychiatric medications, denies depression, and denies voices, denies substance abuse. Endocrine: The patient denies thyroid disorders, denies diabetes, and denies hormonal problems. Hematologic: The patient denies a history of bruising, denies bleeding, and denies anemia, denies blood clots. Infections: The patient denies a history of measles and mumps, denies rheumatic fever, and denies sexually transmitted diseases. Musculoskeletal: The patient denies back pain/injury, denies back problems, denies sciatica, denies knee/foot trouble, denies arthritis, or denies gout. When was patient's last Mammogram screening? 05/2018 Last Colonoscopy: none Ritu Hearn LPN I have confirmed and edited as necessary, the PFSH and ROS obtained by others. PHYSICAL EXAMINATION: General: The patient is 28 year old female, well nourished, well hydrated in no acute distress. The patient is oriented to time, place, and person. VITALS: Blood pressure 156/92, pulse 104, temperature 36.7 ?C (98 ?F), height 175.3 cm (5' 9), weight (!) 143.8 kg (317 lb), SpO2 98 %. Body mass index is 46.81 kg/m?. HEENT: Normal cephalic, ataumatic, pupils are equally round, sclera are anicteric, mucous membranes are moist, oropharynx is clear. Neck has no masses, asymmetry or lymphadenopathy. Respiratory: Clear to auscultation and percussion. Normal respiratory excursion and pattern. Cardiac: Examination is regular rate and rhythm. Abdominal exam: Normoactive bowel sounds, Soft, tender in the right upper quadrant positive Jarrell's sign, with no palpable masses. No hepatosplenomegaly. No palpable hernias. Rectal exam: exam deferred Extremities: no clubbing, cyanosis or edema. No adenopathy. Other: LABORATORY VALUES: As Noted RADIOLOGIC STUDIES: As Noted Above Assessment IMPRESSION: Biliary colic, Cholelithiasis PLAN: I have reviewed my findings with Dr. Cevallos. Dr. Cevallos plans to perform a laparoscopic cholecystectomy with intraoperative cholangiogram, scheduled for tomorrow. The planned surgical procedure was discussed extensively with the patient. The risks, benefits, anticipated outcomes and possible complications were mentioned. My staff has also explained the procedure in understandable terms and the patient was given the option to take printed material concerning the planned procedure. The patient had the opportunity to ask questions concerning the planned procedure. The patient freely consents to the planned procedure. Planned Procedure: LAPAROSCOPIC CHOLECYSTECTOMY WITH INTRAOPERATIVE CHOLEANGIOGRAM - 92571-706 Planned antibiotic: Ancef 3gm IVPB production service manager to OR SCDs needed - Yes Aerospace Medicine Physician Needed - Yes Diagnoses: (K80.50) Biliary colic (primary encounter diagnosis) (K80.20) Gallstones (Z86.718) History of DVT (deep vein thrombosis) (E28.2) PCOS (polycystic ovarian syndrome) Yfn English PA-C CNOV Observed: 06/20/2018 Status: COMPLETED Source: [place] 3:00 PM [facility] REPOSITORY Office Visit (GENSWS) NICKI GAMBLE ([id number]) 1990 F Date Time Provider Department 06/20/18 3:00 PM YFN ENGLISH (PA) GENABRAMS During your visit today, we recorded the following information about you: Temperature Pulse Blood pressure Weight 98 degrees 80/minute 138/84 143.8 kg Height 1.753 m Yfn English PA-C 06/20/2018 4:25 PM Signed HISTORY AND PHYSICAL Nicki Gamble 1990 REFERRING PHYSICIAN: Marianne Hyde* CHIEF COMPLAINT: Consult (Consult gallbladder) HPI: Nicki is a 28 year old female with a complaint of right upper quadrant pain. The patient has had symptoms of constant right upper quadrant discomfort for 4 days. The symptoms have increased during that time which prompted her to present to the emergency department yesterday. The pain does not radiate to the back and shoulder, though she does note some generalized discomfort across her entire abdomen. Food does aggravate her symptoms and she has had a few episodes of emesis and one episode of diarrhea, states has not been eating much the last couple of days because of this. Alleviating factors include: none except for some mild relief from the hydrocodone prescribed by ED. Patient states looking back she thinks she has had some intermittent similar although milder episodes of abdominal in the past. She denies any fever or chills. The patient was seen by the emergency room physician yesterday. Nicki underwent an ultrasound which demonstrated cholelithiasis and sludge. The patient is referred for evaluation and treatment. Patient's past medical history is significant for polycystic ovarian syndrome and a past DVT in 2011 which she states was related to taking control pills. She denies any personal or family history of clotting disorders. Denies any known cardiac or pulmonary issues. She states she has not had any prior surgeries other than dental procedures in the past. SIGNIFICANT MEDICAL PROBLEMS: PAST MEDICAL HISTORY Diagnosis Date - DVT of leg (deep venous thrombosis) (HCC) 08/12/2011 left - Low grade squamous intraepithelial lesion (LGSIL) on cervical Pap smear 07/10/2015 - Morbid obesity (HCC) - PCOS (polycystic ovarian syndrome) - Tobacco use disorder OPERATIONS: PAST SURGICAL HISTORY Procedure Laterality Date - VAGINOSCOPY 08/18/2015 CURRENT MEDICATIONS: Current Outpatient Prescriptions: HYDROcodone-acetaminophen (NORCO) 5-325 mg per tablet EVERY 4 HOURS NEEDED PRN For Pain Disp: Rfl: ondansetron orally disintegrating (ZOFRAN ODT) 4 mg disintegrating tablet EVERY 8 HOURS NEEDED PRN For Nausea Disp: Rfl: misoprostol (CYTOTEC) 200 mcg tablet 2 TABLETS PO NIGHT PRIOR TO APPOINTMENT AND REPEAT IN AM Disp: 4 tablet Rfl: 0 No current facility-administered medications for this visit. ALLERGIES: Patient has no known allergies. 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 - Hypertension Father - other (Vertigo [Other]) Paternal Grandmother - Asthma Paternal Grandmother - Diabetes Paternal Grandfather REVIEW OF SYMPTOMS: The review of systems data was entered by the nurse and reviewed by me Nursing Notes: Ritu Hearn LPN 06/20/2018 4:15 PM Signed REVIEW OF SYSTEMS: General: The patient denies fatigue, denies weight loss, denies weight gain, denies feeling hot, and denies feelings of cold. Eyes: The patient denies glaucoma, denies eye injury/surgery, wears glasses or contacts. Ear/Nose/Throat: The patient denies allergies, denies hayfever, NOTES ear infections, and denies bloody noses. Cardiovascular: The patient denies chest pain, denies heart disease, denies high blood pressure,denies cardiac stent, denies prior heart attack, denies irregular heart beat, denies high cholesterol, denies poor circulation, denies heart failure, other cardiac issues, denies claudication, denies cold feet, denies peripheral arterial stent. Respiratory: The patient denies tuberculosis, denies pneumonia, denies frequent cough, denies pulmonary embolism, denies shortness of breath, and denies coughing up blood. Gastrointestinal: The patient denies difficulty swallowing, denies acid reflux, denies ulcers, denies vomiting, denies jaundice/hepatitis, denies gallbladder problems, denies black or tarry stools, denies hemorrhoids, denies bleeding from rectum, denies diverticulitis, denies constipation, denies diarrhea, denies loss of stool control, and denies hernias. Kidney/Bladder: The patient denies kidney stones, denies urine infections, and denies bloody urine. Skin: The patient denies a history of skin cancer, denies bleeding/changing moles, and denies a history of skin rash. Neurologic: The patient denies a history of epilepsy/convulsions, denies headaches, denies head/spinal injuries, and denies stroke/TIA. Psychiatric: The patient denies psychiatric medications, denies depression, and denies voices, denies substance abuse. Endocrine: The patient denies thyroid disorders, denies diabetes, and denies hormonal problems. Hematologic: The patient denies a history of bruising, denies bleeding, and denies anemia, denies blood clots. Infections: The patient denies a history of measles and mumps, denies rheumatic fever, and denies sexually transmitted diseases. Musculoskeletal: The patient denies back pain/injury, denies back problems, denies sciatica, denies knee/foot trouble, denies arthritis, or denies gout. When was patient's last Mammogram screening? 05/2018 Last Colonoscopy: none Ritu Hearn LPN I have confirmed and edited as necessary, the PFSH and ROS obtained by others. PHYSICAL EXAMINATION: General: The patient is 28 year old female, well nourished, well hydrated in no acute distress. The patient is oriented to time, place, and person. VITALS: Blood pressure 156/92, pulse 104, temperature 36.7 ?C (98 ?F), height 175.3 cm (5' 9), weight (!) 143.8 kg (317 lb), SpO2 98 %. Body mass index is 46.81 kg/m?. HEENT: Normal cephalic, ataumatic, pupils are equally round, sclera are anicteric, mucous membranes are moist, oropharynx is clear. Neck has no masses, asymmetry or lymphadenopathy. Respiratory: Clear to auscultation and percussion. Normal respiratory excursion and pattern. Cardiac: Examination is regular rate and rhythm. Abdominal exam: Normoactive bowel sounds, Soft, tender in the right upper quadrant positive Jarrell's sign, with no palpable masses. No hepatosplenomegaly. No palpable hernias. Rectal exam: exam deferred Extremities: no clubbing, cyanosis or edema. No adenopathy. Other: LABORATORY VALUES: As Noted RADIOLOGIC STUDIES: As Noted Above Assessment IMPRESSION: Biliary colic, Cholelithiasis PLAN: I have reviewed my findings with Dr. Cevallos. Dr. Cevallos plans to perform a laparoscopic cholecystectomy with intraoperative cholangiogram, scheduled for tomorrow. The planned surgical procedure was discussed extensively with the patient. The risks, benefits, anticipated outcomes and possible complications were mentioned. My staff has also explained the procedure in understandable terms and the patient was given the option to take printed material concerning the planned procedure. The patient had the opportunity to ask questions concerning the planned procedure. The patient freely consents to the planned procedure. Planned Procedure: LAPAROSCOPIC CHOLECYSTECTOMY WITH INTRAOPERATIVE CHOLEANGIOGRAM - 52696-245 Planned antibiotic: Ancef 3gm IVPB production service manager to OR SCDs needed - Yes Aerospace Medicine Physician Needed - Yes Diagnoses: (K80.50) Biliary colic (primary encounter diagnosis) (K80.20) Gallstones (Z86.718) History of DVT (deep vein thrombosis) (E28.2) PCOS (polycystic ovarian syndrome) SANTI Conrad LPN 06/20/2018 4:15 PM Signed REVIEW OF SYSTEMS: General: The patient denies fatigue, denies weight loss, denies weight gain, denies feeling hot, and denies feelings of cold. Eyes: The patient denies glaucoma, denies eye injury/surgery, wears glasses or contacts. Ear/Nose/Throat: The patient denies allergies, denies hayfever, NOTES ear infections, and denies bloody noses. Cardiovascular: The patient denies chest pain, denies heart disease, denies high blood pressure,denies cardiac stent, denies prior heart attack, denies irregular heart beat, denies high cholesterol, denies poor circulation, denies heart failure, other cardiac issues, denies claudication, denies cold feet, denies peripheral arterial stent. Respiratory: The patient denies tuberculosis, denies pneumonia, denies frequent cough, denies pulmonary embolism, denies shortness of breath, and denies coughing up blood. Gastrointestinal: The patient denies difficulty swallowing, denies acid reflux, denies ulcers, denies vomiting, denies jaundice/hepatitis, denies gallbladder problems, denies black or tarry stools, denies hemorrhoids, denies bleeding from rectum, denies diverticulitis, denies constipation, denies diarrhea, denies loss of stool control, and denies hernias. Kidney/Bladder: The patient denies kidney stones, denies urine infections, and denies bloody urine. Skin: The patient denies a history of skin cancer, denies bleeding/changing moles, and denies a history of skin rash. Neurologic: The patient denies a history of epilepsy/convulsions, denies headaches, denies head/spinal injuries, and denies stroke/TIA. Psychiatric: The patient denies psychiatric medications, denies depression, and denies voices, denies substance abuse. Endocrine: The patient denies thyroid disorders, denies diabetes, and denies hormonal problems. Hematologic: The patient denies a history of bruising, denies bleeding, and denies anemia, denies blood clots. Infections: The patient denies a history of measles and mumps, denies rheumatic fever, and denies sexually transmitted diseases. Musculoskeletal: The patient denies back pain/injury, denies back problems, denies sciatica, denies knee/foot trouble, denies arthritis, or denies gout. When was patient's last Mammogram screening? 05/2018 Last Colonoscopy: none Ritu Hearn LPN Referring Provider: [facility] [[id number]] Allergies As of Date: 06/20/2018 (No Known Allergies) Date Reviewed: 06/20/2018 Reviewed by: Yfn Whitten) - Fully Assessed Reason for Visit: Consult [173] Cmt: Consult gallbladder Primary Visit Diagnosis:Biliary colic [K80.50] Other Visit Diagnoses:Gallstones [K80.20] History of DVT (deep vein thrombosis) [Z86.718] PCOS (polycystic ovarian syndrome) [E28.2] Prescriptions as of 06/20/2018 Sig: HYDROCODONE 5 MG-ACETAMINOPHE* EVERY 4 HOURS NEEDED PRN F* ONDANSETRON 4 MG DISINTEGRATI* EVERY 8 HOURS NEEDED PRN F* MISOPROSTOL 200 MCG TABLET 2 TABLETS PO NIGHT PRIOR TO A* Problem List As Of Date 06/20/2018 Noted Resolved PCOS (polycystic ovarian syndrome) [E28.2] INVALID FOR* Contraception [Z30.9] INVALID FOR* DVT of leg (deep venous thrombosis) [I82.409] INVALID FOR* Tobacco use disorder [F17.200] Visit Notes: >> Ritu Aldridge Jun 20, 2018 4:14 PM Status: Signed REVIEW OF SYSTEMS: General: The patient denies fatigue, denies weight loss, denies weight gain, denies feeling hot, and denies feelings of cold. Eyes: The patient denies glaucoma, denies eye injury/surgery, wears glasses or contacts. Ear/Nose/Throat: The patient denies allergies, denies hayfever, NOTES ear infections, and denies bloody noses. Cardiovascular: The patient denies chest pain, denies heart disease, denies high blood pressure,denies cardiac stent, denies prior heart attack, denies irregular heart beat, denies high cholesterol, denies poor circulation, denies heart failure, other cardiac issues, denies claudication, denies cold feet, denies peripheral arterial stent. Respiratory: The patient denies tuberculosis, denies pneumonia, denies frequent cough, denies pulmonary embolism, denies shortness of breath, and denies coughing up blood. Gastrointestinal: The patient denies difficulty swallowing, denies acid reflux, denies ulcers, denies vomiting, denies jaundice/hepatitis, denies gallbladder problems, denies black or tarry stools, denies hemorrhoids, denies bleeding from rectum, denies diverticulitis, denies constipation, denies diarrhea, denies loss of stool control, and denies hernias. Kidney/Bladder: The patient denies kidney stones, denies urine infections, and denies bloody urine. Skin: The patient denies a history of skin cancer, denies bleeding/changing moles, and denies a history of skin rash. Neurologic: The patient denies a history of epilepsy/convulsions, denies headaches, denies head/spinal injuries, and denies stroke/TIA. Psychiatric: The patient denies psychiatric medications, denies depression, and denies voices, denies substance abuse. Endocrine: The patient denies thyroid disorders, denies diabetes, and denies hormonal problems. Hematologic: The patient denies a history of bruising, denies bleeding, and denies anemia, denies blood clots. Infections: The patient denies a history of measles and mumps, denies rheumatic fever, and denies sexually transmitted diseases. Musculoskeletal: The patient denies back pain/injury, denies back problems, denies sciatica, denies knee/foot trouble, denies arthritis, or denies gout. When was patient's last Mammogram screening? 05/2018 Last Colonoscopy: none Ritu Hearn LPN Follow-up and Disposition History Recorded Encounter Status:Closed by YFN ENGLISH PA-C on 06/20/18 GALLBLADDER Observed: 06/19/2018 Status: F Source: ERH[place] 7:09 [facility] REPOSITORY [facility] Imaging Services [address] [place] [address] Gallbladder MR#: [id number] Acct: [id number] Name: NICKI GAMBLE Rep #: [id number] : 1990 F 28 From: Seth Thorne DO PCP: Care Physician, No Primary Status: REG ER Study: Gallbladder Date of Exam: 06/19/18 Exam# [id number] Ordering Dr: Ranulfo Dey MD STUDY: ABDOMINAL ULTRASOUND - RIGHT UPPER QUADRANT REASON FOR VISIT: Female, 28 years old. Right upper quadrant pain x3 days TECHNIQUE: Ultrasound evaluation of the right upper quadrant was performed with real-time and static hess-scale imaging. TECHNICAL QUALITY: Adequate. COMPARISON: None. FINDINGS: Liver: The liver measures 21 cm. There is increased echogenicity consistent with fatty infiltration. The bile ducts are within normal limits. There is hepatic color flow. The direction of portal flow is hepatopetal. There is no demonstrated mass lesion. Gallbladder: Normal distended gallbladder. The gallbladder wall measures 2.7 mm. There is a positive sonographic Jarrell's sign. There is no pericholecystic fluid. Large stone measuring 2.9 x 2.5 cm near the gallbladder neck. There is also gallbladder sludge. Common Bile Duct (C.B.D.): The common bile duct measures 4.6 mm. Pancreas: Normal size of the head, body and tail of the pancreas. There is normal echogenicity of the pancreas. There is no demonstrated pancreatic mass or cyst. Right Kidney: Normal size of the right kidney. The right kidney measures 11.4 cm. Normal renal cortex. The right cortex measures 1.6 cm. There is no demonstrated renal mass or cyst. There is no right hydronephrosis. US/Gallbladder IMPRESSION: Positive sonographic Jarrell sign with large gallbladder stone near the gallbladder neck as well as prominently distended gallbladder. Gallbladder sludge is also noted. There is no evidence of wall thickening or pericholecystic fluid however. Hepatomegaly with hepatic steatosis. Electronically Signed: Seth Thorne DO at 8:18 EST Tel , Service support , CC: No Primary Care Physician; Ranulfo Dey MD Pet Ambassador: Signed CBC W/DIFF, AUTOMATED Collected: 06/19/2018 Status: F Source: [place] 6:58 AM [facility] REPOSITORY TYPE CODE TESTS RESULT OUT OF RANGE REFERENCE UNITS LAB L100.1000 4.4-11.0 K/mm3 High WBC 14.0 LAB L100.1200 4.2-5.4 M/mm3 Normal RBC 5.04 LAB L100.1300 12.0-15.0 g/dl Normal HGB 14.3 LAB L100.1400 37-47 % Normal HCT 43.7 LAB L100.1500 81-99 fL Normal MCV 86.7 LAB L100.1600 27.0-32.0 pg Normal MCH 28.4 LAB L100.1700 32-36 g/gl Normal MCHC 32.7 LAB L100.1810 11.6-14.6 % Normal RDW CV 12.8 LAB L100.1820 35.1-43.9 fl Normal RDW SD 40.4 LAB L100.1900 150-450 K/mm3 Normal PLT 362 LAB L100.2000 6.2-12.0 fl Normal MPV 9.0 LAB L100.2100 47-70 % High NEUT% 74.4 LAB L100.2200 19-41 % Low LY% 16.8 LAB L100.2300 0-10 % Normal MONO% 8.0 LAB L100.2400 0-5 % Normal EO% 0.3 LAB L100.2500 0-1 % Normal BASO% 0.1 LAB L100.2550 0.0-0.9 % Normal IM GRAN % 0.400 Result Comment: IG% - Immature Granulocytes (promyelocytes, myelocytes and metamyelocytes) > 1% indicates that a LEFT SHIFT is Present. LAB L100.2620 2.0-7.7 X10 3/uL High Absolute Neut 10.4 LAB L100.2720 0.83-4.51 X10 3/ul Normal Absolute Lymph 2.35 Performed By: #### L100.0100 #### [facility] [address] [place], [address] COMPREHENSIVE METABOLIC Collected: 06/19/2018 Status: F Source: MARIANNE JOY 6:58 AM [facility] REPOSITORY TYPE CODE TESTS RESULT OUT OF RANGE REFERENCE UNITS LAB L501.0100 74-106 mg/dL High GLU 108 Result Comment: Fasting Glucose result from 100 to 125 mg/dL suggests IMPAIRED HOMEOSTASIS per A.D.A. criteria. Please note revised GLUCOSE reference range effective 2017. LAB L501.1000 7-18 mg/dL Normal BUN 7 LAB L501.1100 0.55-1.02 mg/dL Normal CREAT,SERUM 0.58 Result Comment: The validity of the calculated GFR AND GFRAA in patients over 70 years has not been determined. Clinical correlation is essential. LAB L501.1110 >60 mL/min Normal EST GFR 128 Result Comment: Non- GFR Calc LAB L501.1115 >60 mL/min Normal EST GFR - AA 155 Result Comment: GFR Calc LAB L501.1255 ml/min Normal Estimated CRCL 148.22 LAB L501.1300 10-20 RATIO BUN/CRE Normal 12.0 LAB L501.1500 6.4-8. g/dL High 2 T PROT 9.2 LAB L501.1800 3.2-5. g/dL 0 ALB Normal 3.8 LAB L501.1950 2.2-4. g/dL High 2 GLOB 5.4 LAB L501.2000 0.9-2. RATIO Low 4 A/G 0.7 LAB L501.2200 8.5-10 mg/dL .1 CA Normal 9.1 LAB L501.4100 15-37 U/L AST Normal 20 LAB L501.4305 45-117 U/L High ALK P 154 LAB L501.4405 13-56 U/L ALT Normal 38 LAB L501.4600 0.20-1 mg/dL .00 T BILI Normal 0.40 LAB L501.5300 136-14 mmol/L 5 NA Normal 137 LAB L501.5600 3.5-5. mmol/L 1 K Normal 3.7 LAB L501.5900 98-107 mmol/L CL Normal 103 LAB L501.6100 21.0-3 mmol/L 2.0 CO2 Normal 24.0 LAB L501.6200 5-15 GAP Normal 10 Performed By: #### L500.4050, L501.2450 #### [facility] [address], [address] LIPASE Collected: 06/19/2018 Status: F Source: ERHARD 6:58 AM [facility] REPOSITORY TYPE CODE TESTS RESULT OUT OF REFERENCE UNITS RANGE LAB L501.2450 73-393 U/L Low LIPASE 63 Performed By: #### L500.4050, L501.2450 #### [facility] [address] [place], [address] ,SERUM,HCG QUALI. Collected: Status: F Source: ERHARD 06/19/2018 6:58 AM [facility] REPOSITORY TYPE CODE TESTS RESULT OUT OF REFERENCE UNITS RANGE LAB L700.6700 =>Qualitative mIU/mL Normal HCG Qual < 1 triggr LAB L700.7000 0-9 Nonpreg Negative Normal HCGSQUAL NEGATIVE Performed By: #### L700.6800 #### [facility] [address] [place], [address] EMERGENCY DEPARTMENT Observed: 09/13/2017 Status: F Source: ERHARD SUMMARY 6:44 PM [facility] REPOSITORY [facility] Medical Records Department [address] [place] [address] [place] [address] Emergency Department Summary 09/13/17 1516 MR#: [id number] Acct: [id number] Name: NICKI GAMBLE Rep #: [id number] : 1990 27 From: Miguel Ángel Roland DO PCP: Care Physician, No Primary Status: REG ER - ER Visit Summary Date of Service: 09/13/17 Chief Complaint: Abdominal pain History of Present Illness: The patient is a 27 F who presents with right-sided abdominal pain that has been getting worse over the past 4 days. Patient states her pain has been gradually getting worse. Patient denies any fevers or chills. Patient denies any nausea or vomiting. Patient denies any diarrhea. Patient denies any hematemesis, hematochezia, or melena. Denies any dysuria or hematuria. Patient states her last menstrual period was August 25. Patient describes her pain as sharp and throbbing. Patient denies any radiation of the pain. Physical Examination: Vital signs are stable. Patient is afebrile. Patient is in no acute distress. Oral mucosa is pink and moist. Neck is supple. Trachea is midline. Heart was regular rate and rhythm. Lungs are clear and equal bilaterally. There is good respiratory effort noted. Abdomen is soft. Bowel sounds are normal. There is right upper and right lower quadrant tenderness. There is no rebound or guarding noted. Cranial nerves II through XII are intact. There are no focal motor or sensory deficits noted. The remaining physical exam is within normal limits. Test Results: CT scan of the abdomen and pelvis showed a calcified gallstone but no evidence of cholecystitis. There is nonspecific ileus. There is no obstruction noted. CBC showed slight leukocytosis of 12.8. Conference of metabolic profile showed a slight elevation of the alk phos of 151 but was otherwise within normal limits. Urinalysis was normal. Emergency Department Course and Treatment: Patient was given a bolus of normal saline. Patient felt better on reevaluation. Patient was advised of her findings. Patient was instructed to follow-up with her primary care physician in 5-7 days for further evaluation. Patient understood and was agreeable with the plan. All questions were answered. Treatment Plan: Patient was given a prescription for Naprosyn for pain. Disposition: Discharge home Impression: Cholelithiasis, abdominal pain This note was generated with Map[employer] dictation software. It may contain incorrect words, spelling, and punctuation that were not noted in review of the chart prior to signing ED Disposition - Plan for ED Patient: Disposition: Home or Assisted Living Chief Complaint: Abd Pain Diagnosis: Abdominal pain, Cholelithiasis Instructions: ED Abdominal Pain Unkn Cause Prescriptions: Naproxen [Naprosyn] 500 mg PO BID PRN PRN #20 tab PRN Reason: Pain Referrals: Care Physician,No Primary [Primary Care Provider] - What to do if you have Problems For any increased pain, shortness of breath, bleeding, nausea or vomiting, chest pain, or any unexpected problems, contact your Primary Care Provider. Call [facility] ([phone]) or report to the closest Emergency Room. Call 911 if necessary. 09/13/17 0341 <Electronically signed by Miguel Ángel Schwiger DO> Date Miguel Ángel Roland DO Cosigner Signature (If Indicated): Date CC: No Primary Care Physician CBC W/DIFF, AUTOMATED Collected: 09/13/2017 Status: F Source: MARIANNE 3:45 PM [facility] REPOSITORY TYPE CODE TESTS RESULT OUT OF RANGE REFERENCE UNITS LAB L100.1000 4.4-11.0 K/mm3 High WBC 12.8 LAB L100.1200 4.2-5.4 M/mm3 Normal RBC 5.03 LAB L100.1300 12.0-15.0 g/dl Normal HGB 14.1 LAB L100.1400 37-47 % Normal HCT 43.0 LAB L100.1500 81-99 fL Normal MCV 85.5 LAB L100.1600 27.0-32.0 pg Normal MCH 28.0 LAB L100.1700 32-36 g/gl Normal MCHC 32.8 LAB L100.1810 11.6-14.6 % Normal RDW CV 13.5 LAB L100.1820 35.1-43.9 fl Normal RDW SD 42.1 LAB L100.1900 150-450 K/mm3 Normal PLT 308 LAB L100.2000 6.2-12.0 fl Normal MPV 9.2 LAB L100.2100 47-70 % Normal NEUT% 69.9 LAB L100.2200 19-41 % Normal LY% 20.5 LAB L100.2300 0-10 % Normal MONO% 8.3 LAB L100.2400 0-5 % Normal EO% 0.9 LAB L100.2500 0-1 % Normal BASO% 0.2 LAB L100.2550 0.0-0.9 % Normal IM GRAN % 0.200 Result Comment: IG% - Immature Granulocytes (promyelocytes, myelocytes and metamyelocytes) > 1% indicates that a LEFT SHIFT is Present. LAB L100.2620 2.0-7.7 X10 3/uL High Absolute Neut 8.9 LAB L100.2720 0.83-4.51 X10 3/ul Normal Absolute Lymph 2.61 Performed By: #### L100.0100 #### [facility] [place], [address] COMPREHENSIVE METABOLIC Collected: 09/13/2017 Status: F Source: MARIANNE JOY 3:45 PM [facility] REPOSITORY TYPE CODE TESTS RESULT OUT OF RANGE REFERENCE UNITS LAB L501.0100 74-106 mg/dL Normal GLU 81 Result Comment: Please note revised GLUCOSE reference range effective 2017. LAB L501.1000 7-18 mg/dL Normal BUN 10 LAB L501.1100 0.55-1.02 mg/dL Normal CREAT,SERUM 0.58 Result Comment: The validity of the calculated GFR AND GFRAA in patients over 70 years has not been determined. Clinical correlation is essential. LAB L501.1110 >60 mL/min Normal EST GFR 130 Result Comment: Non- GFR Calc LAB L501.1115 >60 mL/min Normal EST GFR - AA 158 Result Comment: GFR Calc LAB L501.1255 ml/min Normal Estimated CRCL 149.57 LAB L501.1300 10-20 RATIO BUN/CRE Normal 17.3 LAB L501.1500 6.4-8. g/dL High 2 T PROT 8.9 LAB L501.1800 3.2-5. g/dL 0 ALB Normal 3.8 LAB L501.1950 2.2-4. g/dL High 2 GLOB 5.1 LAB L501.2000 0.9-2. RATIO Low 4 A/G 0.7 LAB L501.2200 8.5-10 mg/dL .1 CA Normal 8.9 LAB L501.4100 15-37 U/L AST Normal 18 LAB L501.4305 45-117 U/L High ALK P 151 LAB L501.4405 13-56 U/L ALT Normal 30 Result Comment: Please note revised ALT reference range effective 2017. LAB L501.4600 0.20-1.00 mg/dL Normal T BILI 0.70 LAB L501.5300 136-145 mmol/L Normal NA 139 LAB L501.5600 3.5-5.1 mmol/L Normal K 3.8 LAB L501.5900 98-107 mmol/L Normal CL 104 LAB L501.6100 21.0-32.0 mmol/L Normal CO2 27.0 LAB L501.6200 5-15 Normal GAP 8 Performed By: #### L500.4050, L501.2450 #### [facility] [address] [facility], [address] LIPASE Collected: 09/13/2017 Status: F Source: ERHARD 3:45 PM [facility] REPOSITORY TYPE CODE TESTS RESULT OUT OF RANGE REFERENCE UNITS LAB L501.2450 73-393 U/L Normal LIPASE 86 Performed By: #### L500.4050, L501.2450 #### [facility] [address] [facility] [place], [address] ,URINE Collected: 09/13/2017 Status: F Source: ERHARD 3:25 PM [facility] REPOSITORY Order Comment: Order Date: 09/13/17 TYPE CODE TESTS RESULT OUT OF REFERENCE UNITS RANGE LAB L400.8000 Negative Normal HCGUQUAL Negative Result Comment: Very dilute urine specimens, as indicated by a low specific gravity, may not contain education courses sales representative levels of hCG. If is still suspected, a first morning urine specimen should be collected 48 hours later and tested. Performed By: #### L400.7600 #### [facility] [address] [place], [address] URINALYSIS, COMPLETE Collected: 09/13/2017 Status: F Source: ERHARD 3:25 PM [facility] REPOSITORY Order Comment: Order Date: 09/13/17 How was Urine Obtained? CLEAN CATCH TYPE CODE TESTS RESULT OUT OF RANGE REFERENCE UNITS LAB L400.3000 Yellow COLOR Normal Yellow LAB L400.3050 Clear Normal CLARITY Sl. Cloudy LAB L400.3200 Normal mg/dl Normal GLUCOSE, UR Normal LAB L400.3300 Negative mg/dL Normal BILIRUBIN URINE Negative LAB L400.3400 Negative mg/dl Normal KETONE UR Negative LAB L400.3465 1.002-1.030 Normal SP.GR. DIPSTX 1.010 LAB L400.3550 5.0 - 8.0 pH UR Normal 7.0 LAB L400.3600 Negative mg/dl PROT Normal DIPSTX Negative LAB L400.3700 Normal mg/dl Normal UROBILI Normal LAB L400.3750 Negative Normal NITRITE UR Negative LAB L400.3780 Negative /ul Normal OCCULT BLOOD-UR Negative LAB L400.3800 Negative /ul LEUK Normal ESTERASE Negative LAB L400.4050 0-5 /hpf WBC 0 Normal SEEN LAB L400.4100 0-5 /hpf 0 Normal RBC-UA SEEN LAB L400.4150 5-10 /hpf SQUAM Normal EPI 0-5 SEEN LAB L400.4300 None Seen /hpf 0 Normal BACTERIA SEEN LAB L400.4350 <or=2+ /hpf 0 Normal MUCUS, URINE SEEN Performed By: #### L400.0001 #### [facility] [address] [facility] [place], [address] ABDOMEN/PELVIS WITHOUT Observed: 09/13/2017 Status: F Source: ERHARD CONT 3:22 PM [facility] REPOSITORY [facility] Imaging Services [address] [place] [address] Abdomen/Pelvis without Cont MR#: [id number] Acct: [id number] Name: NICKI GAMBLE Rep #: [id number] : 1990 F 27 From: Brent Cui MD PCP: Care Physician, No Primary Status: REG ER Study: Abdomen/Pelvis without Cont Date of Exam: 09/13/17 Exam# [id number] Ordering Dr: Miguel Ángel Roland DO STUDY: CT ABDOMEN AND PELVIS WITHOUT CONTRAST REASON FOR EXAM: Female, 27 years old. Increasing lower abdominal pain RADIATION DOSAGE (If Supplied By Facility): CTDIvol = ( 23.83 ) mGy, DLP = ( 1244.17 ) mGycm TECHNIQUE: Transaxial images were obtained from the dome of the diaphragm to the symphysis pubis without oral contrast, and without intravenous contrast. Sagittal and coronal images were reconstructed. Individualized dose optimization techniques were used for this CT. COMPARISON: None. FINDINGS: The visualized lung bases are unremarkable. The visualized portions of the heart are within normal limits. Normal liver. There is a large solitary rim calcified gallstone within distended gallbladder without evidence for acute cholecystitis. Normal spleen. Normal pancreas. Normal bilateral adrenal glands. Normal right kidney. Normal left kidney. Normal visualized stomach. Mild nonspecific ileus pattern. No evidence for small bowel obstruction or pneumoperitoneum. Minor diverticular changes in the sigmoid colon without evidence for acute diverticulitis. The appendix is visualized and appears normal. Normal abdominal aorta. Normal inferior vena cava. Normal retroperitoneum. Normal urinary bladder. Uterus is mildly deviated towards the right. There are minor cystic changes of the ovaries. Normal abdominal wall. Normal osseous structures. CT/Abdomen/Pelvis without Cont IMPRESSION: Distended gallbladder with calcified gallstone without definitive evidence for acute cholecystitis Mild nonspecific ileus without evidence for small bowel obstruction. Minor diverticular disease of the sigmoid colon without evidence for acute diverticulitis Electronically Signed: Brent Cui MD at 17:33 EDT , Service support , CC: No Primary Care Physician; Miguel Ángel Roland DO Pet Ambassador: Signed ALLERGIES ALLERGIES DATE TYPE / CODE NAME / CODE REACTION SEVERITY SOURCE 06/20/2018 Drug No Known Unknown [facility] Allergy/416 Allergies/E87058 Hospital 090857(SNOM 0388(RXNORM) Repository ED CT) Drug NO KNOWN [facility] Class/62387 ALLERGIES Main [place] 1003(SNOMED Repository CT) ENCOUNTERS ENCOUNTERS ADMIT/DISCHARGE ACCOUNT ADMITTING ENCOUNTER LOCATION SOURCE NUMBER CLASS 06/29/2018/06/29/19 [id number] Ambulatory [address] Repository 06/21/2018/06/21/19 [id number] Ambulatory [address] ing:SDCRoom: Repository AC09 06/20/2018/06/21/19 [id number] Ambulatory [address] Repository 06/19/2018/06/19/19 [id number] Emergency [address] ing:ED Repository 09/13/2017/04/10 [id number] Emergency [place]ne [place] [facility] ing:ED Repository PAYERS PAYERS ENCOUNTER GUARANTOR PAYER SUBSCRIBER SOURCE 06/21/2018 NICKI Grady Primary Insurance:UMR NICKI GAMBLE[address] [id number] HAMILTONDOB: Community [address] Number: [id number] [id number] Repository [address]Ufi: (330) Date:[phone] () [id number] [place] [id number]: 06/21/2018 Secondary NOT GIVENUNK [place] Insurance:SELF PAY [facility] Number: Effective Repository Date:2018-06-19 06/19/2018 NICKI Grady Primary Insurance:UMR NICKI Lopes [id number] [address] [id number] CAVE JUNCTIONDOB: [facility]ly [facility] [address] Number: [id number] [id number] Repository [address]Tam: (330) Date:[id number] [phone] () [place], [place] [address]CQ: 06/19/2018 Secondary NOT GIVENUNK [place] Insurance:SELF PAY [facility] Number: Effective Repository Date:2018-06-19 09/13/2017 NICKI Grady Primary NICKI Lopes [id number] Insurance:ANTHEMPolic HAMILTONDOB: Formerly [facility] [address] y Number: [id number] [id number] Repository [address]Lwj: (330) Date:[id number] [phone] (HP) [id number], [place] [address]EF: 09/13/2017 Secondary NOT GIVENUNK [place] Insurance:SELF PAY [facility] Number: Effective Repository Date:2017-09-13
== END 2018-06-21 13:17 | disposition home or self-care (01) ==
LOC: SDC 06:38 → AC 06:38
PROVIDERS: Anesthesiology; Referring Provider Surgery; Visit Provider Surgery
PROC: (CPT 47610; principal; 2018-06-21 08:10)
DX: K80.12 Calculus of gallbladder with acute and chronic cholecystitis without obstruction (principal); K82.1 Hydrops of gallbladder; E28.2 Polycystic ovarian syndrome; E66.01 Morbid (severe) obesity due to excess calories; F17.210 Nicotine dependence, cigarettes, uncomplicated; Z68.42 Body mass index [BMI] 45.0-49.9, adult; Z86.718 Personal history of other venous thrombosis and embolism; Z79.891 Long term (current) use of opiate analgesic; Z79.899 Other long term (current) drug therapy
CPT/HCPCS: 00790; 47562; 81025; 88304; 93005; J7050; J7120; J1610; J2405

== ENCOUNTER → 2024-12-08 | Outpatient (CLI) | payer OTHER, SELFPAY ==
[2024-12-08 08:24] LABS: Hematocrit 40.6 % (37-47); Hemoglobin 12.8 g/dL (12.0-15.0); Immature Granulocytes Count 0.050 X10^3/uL (0.0-0.0); Mean Corp Hgb Conc 31.5 g/dL (32-36); Mean Corpuscular Volume 85.7 fL (81-99); Mean Platelet Vol. 9.5 fl (6.2-12.0); NRBC Flagged by Analyzer 0 % (0-5); Platelet Count 386 K/mm3 (150-450); RBC Distribution Width CV 13.5 % (11.6-14.6); RBC Distribution Width SD 41.8 fl (35.1-43.9); Red Blood Count 4.74 M/mm3 (4.2-5.4); White Blood Count 10.0 K/mm3 (4.4-11.0)
[2024-12-08 08:38] LABS: D-Dimer Quantitative (DVT/PE) 0.48 FEU/ug/m (0.27-0.49)
[2024-12-08 09:16] LABS: AST(SGOT) 40 U/L (<=31); Alanine Aminotransfer ALT/SGPT 54 U/L (<=34); Albumin, Serum 4.0 g/dL (3.5-5.0); Alkaline Phosphatase 118 U/L (35-104); Anion Gap 12 (5-15); BUN 7 mg/dL (4-19); BUN/Creat Ratio 12.0 RATIO (10-20); Calcium,Total 9.3 mg/dL (7.6-11.0); Carbon Dioxide 24.6 mmol/L (21.0-32.0); Chloride 98 mmol/L (98-108); Cholesterol 146 mg/dL (<=200); Globulin 4.1 g/dL (2.2-4.2); Glucose 181 mg/dL (70-99); Low Density Lipoprotein Calc. 80 mg/dL; Potassium 4.2 mmol/L (3.3-5.1); Triglycerides 85 mg/dL; Very Low Density Lipoprotein 17 mg/dL (5-40); Vitamin D,25 Hydroxy 17.9 ng/mL (30-100); cholesterol:hdl ratio screen 2.96
== END | disposition home or self-care (01) ==
LOC: LAB 08:01
PROVIDERS: Internal Medicine Medical Oncology; PCP Internal Medicine; Referring Provider Internal Medicine; Visit Provider Internal Medicine
DX: I82.409 Acute embolism and thrombosis of unspecified deep veins of unspecified lower extremity (principal); E11.9 Type 2 diabetes mellitus without complications; I10 Essential (primary) hypertension; F32.A Depression, unspecified
CPT/HCPCS: 36415; 80053; 80061; 82306; 83036; 85025; 85379

== ENCOUNTER → 2024-12-26 | Outpatient (CLI) | payer OTHER, SELFPAY ==
--- NOTE | 2024-12-26 06:10 | CT_ITS ---
PROCEDURE: CHEST WITH CONTRAST 12/26/2024 REASON FOR EXAM: LUNG NODULE TECHNIQUE: CHEST WITH CONTRAST Coronal and Sagittal reconstruction series were provided. CONTRAST: Isovue 370 VOLUME: 90 mL One or more dose reduction techniques were used (e.g., Automated exposure control, adjustment of the mA and/or kV according to patient size, use of iterative reconstruction technique). RADIATION DOSE SUMMARY: CTDlvol: 50 mGy DLP: 1028 mGycm COMPARISON: 03/26/2023 FINDINGS: Unremarkable base of neck. Mild bilateral axillary adenopathy, usually reactive. Normal esophagus. Normal heart size. No vascular pathology. No acute chest wall findings. Diffuse hepatic steatosis. No acute upper abdominal findings. Central airways are patent. On the right, there is linear scar/atelectasis in the medial aspect of the upper lobe and middle lobe. Otherwise, well inflated lungs. No consolidation, effusion, or pneumothorax. On the right, series 601, image 123, there is an oval-shaped lower lobe nodular density measuring 0.8 x 1.4 cm, stable and felt to be benign. CT/Chest WITH Contrast IMPRESSION: Stable right lung scarring and right lower lobe nodular density. No acute findings and no concerning lung nodule. Reading Location: [facility]
--- OUTSIDE RECORDS SUMMARY | 2024-12-26 06:12 | XMS RPT_ITS | CCD ---
Author Organization [facility] Care Team Providers Care Club Lounge Attendant Name Role Phone YFN ENGLISH (OSIRIS) Attending Unavailable CORA CEVALLOS Attending Unavailable Unavailable Primary Care Provider Unavailabl e KwasnickSaumya ross DO Primary Care Provider SAUMYA MITCHELL Primary Care Unavailabl e KWASNICKSAUMYA Ross Primary Care Unavailabl e SAUMYA MITCHELL Referring Unavailabl e CURRY DILLARD Attending Unavailable CURRY DILLARD Referring Unavailable SAUMYA MITCHELL Primary Care Unavailabl e Kwasnicka Saumya HEBERT Primary Care Provider U navailable SAUMYA MITCHELL Primary Care Unavailabl e KWASNICKSAUMYA Ross Primary Care Unavailabl e [place], Kourtney Attending Unavailable Care Physician, No Primary Primary Care Unava ilable Care Physician, No Primary Referring Unava ilable Yanira, Kourtney Referring Unavailable [place], Kourtney Primary Care Unavailable [place], Kourtney Attending Unavailable Yanira, Kourtney Primary Care Unavailable Jhoan Ramirez Attending Unavailable Jhoan Ramirez Referring Unavailable Yanira, Kourtney Attending Unavailable Care Physician, No Primary Primary Care Unava ilable Care Physician, No Primary Referring Unava ilable Yanira, Kourtney Referring Unavailable Jhoan Ramirez Attending Unavailable [place], Kourtney Primary Care Unavailable Medications Current Medications Medication Drug Class(es) Dates Sig (Normalized) Sig (Original) Acetaminophen (1 source) Start: 11-10-2022 acetaminophen (TYLENOL) tablet 650 mg apixaban 5 mg oral tablet (7 sources) Factor Xa Inhibitor Start: 07-20-2024 take 1 tablet by mouth twice daily apixaban (ELIQUIS) 5 MG TABS tablet Indications: Pulmonary embolism without acute cor pulmonale, unspecified chronicity, unspecified pulmonary embolism type (HCC) Take 1 tablet by mouth 2 times daily 180 tablet 1 07/20/2024 Active Start: 12-30-2022 End: 06-28-2023 take 1 tablet by mouth twice daily apixaban (ELIQUIS) 5 MG TABS tablet Indications: Pulmonary embolism without acute cor pulmonale, unspecified chronicity, unspecified pulmonary embolism type (HCC) Take 1 tablet by mouth 2 times daily 180 tablet 1 12/30/2022 06/28/2023 Active Start: 11-18-2022 End: 11-10-2022 take 1 tablet by mouth twice daily apixaban (ELIQUIS) 5 MG TABS tablet Take 1 tablet by mouth 2 times daily 60 tablet 0 11/18/2022 11/10/2022 Discontinued (REORDER) Start: 11-18-2022 End: 02-16-2023 take 1 tablet by mouth twice daily apixaban (ELIQUIS) 5 MG TABS tablet Take 1 tablet by mouth 2 times daily 180 tablet 0 11/18/2022 02/16/2023 Active Start: 11-10-2022 End: 11-17-2022 apixaban (ELIQUIS) tablet 10 mg Start: 11-10-2022 End: 11-17-2022 take 2 tablets by mouth twice daily apixaban (ELIQUIS) 5 MG TABS tablet Take 2 tablets by mouth 2 times daily for 14 doses 28 tablet 0 11/10/2022 11/17/2022 Active busPIRone hydrochloride 10 mg oral tablet (1 source) Start: 01-31-2023 End: 07-30-2023 take 1 tablet by mouth twice daily as needed for anxiety busPIRone (BUSPAR) 10 MG tablet Indications: Anxiety Take 1 tablet by mouth 2 times daily as needed (anxiety) 180 tablet 1 01/31/2023 07/30/2023 Active citalopram 10 mg oral tablet (1 source) Serotonin Reuptake Inhibitor Start: 02-14-2024 take 1 tablet by mouth once daily citalopram (CELEXA) 10 MG tablet Indications: Anxiety Take 1 tablet by mouth daily 90 tablet 1 02/14/2024 Active lisinopril 5 mg oral tablet (2 sources) Angiotensin Converting Enzyme Inhibitor Start: 02-13-2024 take 1 tablet by mouth once daily lisinopril (PRINIVIL;ZESTRIL) 5 MG tablet Indications: Primary hypertension Take 1 tablet by mouth daily 90 tablet 02/13/2024 Active Start: 12-30-2022 take 1 tablet by antonio th once daily lisinopril (PRINIVIL;ZESTRIL) 5 MG tablet Indications: Primary hypertension Take 1 tablet by mouth daily 90 tablet 1 12/30/2022 Active metFORMIN hydrochloride 500 mg oral tablet (2 sources) Biguanide Start: 01-31-2023 take 1 tablet by mouth twice daily at mealtime metFORMIN (GLUCOPHAGE) 500 MG tablet Indications: Type 2 diabetes mellitus without complication, without long-term current use of insulin (HCC) Take 1 tablet by mouth 2 times daily (with meals) 180 tablet 3 01/31/2023 Active Promethazine (1 source) Phenothiazine Start: 11-10-2022 promethazine (PHENERGAN) tablet 12.5 mg Semaglutide,0.25 or 0.5MG/DOS, (OZEMPIC, 0.25 OR 0.5 MG/DOSE,) 2 MG/3ML SOPN (1 source) Start: 04-25-2024 Semaglutide,0.25 or 0.5MG/DOS, (OZEMPIC, 0.25 OR 0.5 MG/DOSE,) 2 MG/3ML SOPN Indications: Type 2 diabetes mellitus without complication, without long-term current use of insulin (HCC) INJECT 0.5MG SUBCUTANEOUSLYONCE A WEEK 3 mL 2 04/25/2024 Active Completed/Discontinued Medications Medication Drug Class(es) Dates Sig (Normalized) Sig (Original) enoxaparin (LOVENOX) 180 mg injection (2 sources) Start: 11-10-2022 End: 11-10-2022 180 mg (1 mg/kg 181.4 kg), SubCUTAneous, EVERY 12 HOURS, First dose on Tue11/10/22 at 0245, Until Discontinued Indication of Use: Treatment-DVT/PE Administer by deep subCUTAneous injection with pt lying down. Alternate injection sites on abdominal wall. Do not rub site after injection. Check with provider prior to any invasive procedure. Start: 11-10-2022 End: 11-10-2022 enoxaparin (LOVENOX) 180 mg injection iopamidol (ISOVUE-370) 76 % injection 70 mL (1 source) Start: 11-09-2022 End: 11-09-2022 iopamidol (ISOVUE-370) 76 % injection 70 mL 1 ml LORazepam 2 mg/ml injection (1 source) Benzodiazepine Start: 11-09-2022 End: 11-09-2022 LORazepam (ATIVAN) injection 1 mg 2 ml orphenadrine citrate 30 mg/ml injection (1 source) Muscle Relaxant Start: 11-09-2022 End: 11-09-2022 orphenadrine (NORFLEX) injection 60 mg polyethylene glycol 3350 32504 mg powder for oral solution (1 source) Osmotic Laxative Start: 11-10-2022 17 g, Oral, D AILY PRN, Starting on Tue11/10/22 at 0240, Until Discontinued, Constipation First line therapy for constipation 5 ml sodium chloride 9 mg/ml injection (4 sources) Start: 11-10-2022 10 mL, IntraVE Nous, EVERY 12 HOURS SCHEDULED (2 times per day), First dose on Tue11/10/22 at 0900, Until Discontinued Start: 11-10-2022 IntraVENous, a t 5-250 mL/hr, PRN, if patient receiving piggyback infusions and maintenance fluids are not ordered OR KVO fluids to protect IV site / prevent frequent line interruptions/ long duration, Starting on Tue11/10/22 at 0240 For piggyback infusion, administer at same rate as piggyback for a total of 25 mL. Enter 25 mL into dose field and piggyback rate into rate field of order. If piggyback is infusing at a rate less than 100 mL/hr, enter 25 mL into dose field and 100 mL/hr into rate field of order. For KVO fluids, enter rate of 20 mL/hr or less into rate field of order. Start: 11-10-2022 take 10 mL intraveno usly once as needed 10 mL, IntraVENous, PRN, Starting on Tue11/10/22 at 0240, Until Discontinued, Line Care, After every IV line use Start: 11-09-2022 sodium chlorid e flush 0.9 % injection 10 mL Problems Active Problems Problem Classification Problem Date Documented Da te Episodic/Chronic Anxiety disorders (2 sources) Anxiety; Translations: [Anxiety disorder, unspecified] Onset: 12-30-2022 12-30-2022 Chronic Diabetes mellitus without complication (3 sources) Type 2 diabetes mellitus without complication; Translations: [Type 2 diabetes mellitus without complications] Onset: 01-31-2023 01-31-2023 Chronic Essential hypertension (2 sources) Essential hypertension; Translations: [Essential (primary) hypertension] Onset: 12-30-2022 12-30-2022 Chronic Other endocrine disorders (1 source) Polycystic ovary syndrome; Translations: [Polycystic ovarian syndrome] Onset: 06-08-2010 08-02-2023 Chronic Other lower respiratory disease (4 sources) Solitary pulmonary nodule; Translations: [Solitary pulmonary nodule] Onset: 03-26-2023 Episodic Other screening for suspected conditions (not mental disorders or infectious disease) (1 source) CT of chest abnormal; Translations: [Abnormal findings on diagnostic imaging of other specified body structures] Chronic Phlebitis; thrombophlebitis and thromboembolism (2 sources) Acute deep vein thrombosis of lower limb; Translations: [Acute embolism and thrombosis of unspecified deep veins of left proximal lower extremity] Onset: 12-13-2024 Episodic Past or Other Problems Problem Classification Problem Date Documented Da te Episodic/Chronic Pulmonary heart disease (9 sources) Acute pulmonary embolism; Translations: [Other pulmonary embolism without acute cor pulmonale] Onset: 11-10-2022 Episodic Results Test Name Value Interpretation Reference Range Facility CBC W/Diff, Automatedon 07-0 Absolute Lymph 2.12 X10 3/uL Normal 0.83-4.51 [facility] Comment on above: Performed By: #### L 506.1001, [id number], L500.4100, L500.4050, L100.0100 #### [facility] [address] [place], [address] Absolute Neut 7.1 X10 3/uL Normal 2.0-7.7 [facility] Comment on above: Performed By: #### L 506.1001, [id number], L500.4100, L500.4050, L100.0100 #### [facility] [address] [place], [address] Basophils/100 WBC (Bld) 0.4 % Normal 0-1 [facility] Comment on above: Performed By: #### L 506.1001, [id number], L500.4100, L500.4050, L100.0100 #### [facility] [address] [place], [address] Eosinophils/100 WBC (Bld) 1.1 % Normal 0-5 [facility] Comment on above: Performed By: #### L 506.1001, [id number], L500.4100, L500.4050, L100.0100 #### [facility] [address] [place], [address] Erythrocyte distribution width (RBC) [Ratio] 13.5 % Normal 11.6-14.6 [facility] Comment on above: Performed By: #### L 506.1001, [id number], L500.4100, L500.4050, L100.0100 #### [facility] [address] [place], [address] Hematocrit (Bld) [Volume fraction] 40.6 % Normal 37-47 [facility] Comment on above: Performed By: #### L 506.1001, [id number], L500.4100, L500.4050, L100.0100 #### [facility] [address] [place], [address] Hemoglobin (Bld) [Mass/Vol] 12.8 g/dL Normal 12.0-15.0 [facility] Comment on above: Performed By: #### L 506.1001, [id number], L500.4100, L500.4050, L100.0100 #### [facility] [address] [place], [address] IG% 0.500 Normal 0.0-0.9 [facility] Comment on above: Result Comment: IG% - Immature Granulocytes (promyelocytes, myelocytes and metamyelocytes) > 1% indicates that a LEFT SHIFT is Present. Performed By: #### L 506.1001, [id number], L500.4100, L500.4050, L100.0100 #### [facility] [address] [place], [address] Lymphocytes/100 WBC (Bld) 21.2 % Normal 19-41 [facility] Comment on above: Performed By: #### L 506.1001, [id number], L500.4100, L500.4050, L100.0100 #### [facility] [address], [address] MCH (RBC) [Entitic mass] 27.0 pg Normal 27.0-32.0 [facility] Comment on above: Performed By: #### L 506.1001, [id number], L500.4100, L500.4050, L100.0100 #### [facility] [address], [address] MCHC (RBC) [Mass/Vol] 31.5 g/dL Low 32-36 [facility] Comment on above: Performed By: #### L 506.1001, [id number], L500.4100, L500.4050, L100.0100 #### [facility] [address] [place], [address] MCV (RBC) [Entitic vol] 85.7 fL Normal 81-99 [facility] Comment on above: Performed By: #### L 506.1001, [id number], L500.4100, L500.4050, L100.0100 #### [facility] [address], [address] Monocytes/100 WBC (Bld) 5.5 % Normal 0-10 [facility] Comment on above: Performed By: #### L 506.1001, [id number], L500.4100, L500.4050, L100.0100 #### [facility] [address] [place], [address] Neutrophils/100 WBC (Bld) 71.3 % High 47-70 [facility] Comment on above: Performed By: #### L 506.1001, [id number], L500.4100, L500.4050, L100.0100 #### [facility] [address] [place], [address] Nucleated RBC (Bld) [#/Vol] 0 10*3/uL Normal 0-5 [facility] Comment on above: Performed By: #### L 506.1001, [id number], L500.4100, L500.4050, L100.0100 #### [facility] [address] [place], [address] Platelet mean volume (Bld) [Entitic vol] 9.5 fL Normal 6.2-12.0 [facility] Comment on above: Performed By: #### L 506.1001, [id number], L500.4100, L500.4050, L100.0100 #### [facility] [address] [place], [address] Platelets (Bld) [#/Vol] 386 10*3/uL Normal 150-450 [facility] Comment on above: Performed By: #### L 506.1001, [id number], L500.4100, L500.4050, L100.0100 #### [facility] [address] [place], [address] RBC (Bld) [#/Vol] 4.74 10*6/uL Normal 4.2-5.4 [facility] Comment on above: Performed By: #### L 506.1001, [id number], L500.4100, L500.4050, L100.0100 #### [facility] [address] [place], [address] RDW SD 41.8 fl Normal 35.1-43.9 [facility] Comment on above: Performed By: #### L 506.1001, [id number], L500.4100, L500.4050, L100.0100 #### [facility] [address] [place], [address] WBC (Bld) [#/Vol] 10.0 10*3/uL Normal 4.4-11.0 [facility] Comment on above: Performed By: #### L 506.1001, [id number], L500.4100, L500.4050, L100.0100 #### [facility] [address] [place], [address] Comprehensive Metabolic Prof [facility] 12-08-2024 Albumin [Mass/Vol] 4.0 g/dL Normal 3.5-5.0 [facility] Comment on above: Performed By: #### L 506.1001, [id number], L500.4100, L500.4050, L100.0100 #### [facility] [address] [place], [address] Albumin/Globulin [Mass ratio] 1.0 {ratio} Normal 0.9-2.4 [facility] Comment on above: Performed By: #### L 506.1001, [id number], L500.4100, L500.4050, L100.0100 #### [facility] [address] [place], [address] ALK PHOS 118 U/L High 35-104 [facility] Comment on above: Performed By: #### L 506.1001, [id number], L500.4100, L500.4050, L100.0100 #### [facility] [address] [place], [address] ALT [Catalytic activity/Vol] 54 U/L High <=34 [facility] Comment on above: Performed By: #### L 506.1001, L501.9985, L500.4100, L500.4050, L100.0100 #### [facility] [address] [place], [address] AST [Catalytic activity/Vol] 40 U/L High <=31 [facility] Comment on above: Performed By: #### L 506.1001, [id number], L500.4100, L500.4050, L100.0100 #### [facility] [address] [place], [address] Bilirubin [Mass/Vol] 0.52 mg/dL Normal 0.00-1.30 [facility] Comment on above: Performed By: #### L 506.1001, [id number], L500.4100, L500.4050, L100.0100 #### [facility] [address] [place], [address] BUN/CRE 12.0 RATIO Normal 10-20 [facility] Comment on above: Performed By: #### L 506.1001, [id number], L500.4100, L500.4050, L100.0100 #### [facility] [address] [place], [address] Calcium [Mass/Vol] 9.3 mg/dL Normal 7.6-11.0 [facility] Comment on above: Performed By: #### L 506.1001, [id number], L500.4100, L500.4050, L100.0100 #### [facility] [address] [place], [address] Chloride [Moles/Vol] 98 mmol/L Normal 98-108 [facility] Comment on above: Performed By: #### L 506.1001, L501.9985, L500.4100, L500.4050, L100.0100 #### [facility] [address] [place], [address] CO2 [Moles/Vol] 24.6 mmol/L Normal 21.0-32.0 [facility] Comment on above: Performed By: #### L 506.1001, [id number], L500.4100, L500.4050, L100.0100 #### [facility] [address] [place], [address] Creatinine [Mass/Vol] 0.56 mg/dL Low 0.70-1.20 [facility] Comment on above: Performed By: #### L 506.1001, L501.9985, L500.4100, L500.4050, L100.0100 #### [facility] [address] [place], [address] GAP 12 Normal 5-15 [facility] Comment on above: Performed By: #### L 506.1001, [id number], L500.4100, L500.4050, L100.0100 #### [facility] [address] [place], [address] GFR/1.73 sq M.predicted among non-blacks MDRD (S/P/Bld) [Vol rate/Area] 121 mL/min/{1.73_m2} Normal >60 [facility] Comment on above: Result Comment: mL/m in/1.73m2 CKD-EPI Creatinine Equation (2020) Performed By: #### L 506.1001, L501.9985, L500.4100, L500.4050, L100.0100 #### [facility] [address] [place], [address] Globulin (S) [Mass/Vol] 4.1 g/dL Normal 2.2-4.2 [facility] Comment on above: Performed By: #### L 506.1001, L501.9985, L500.4100, L500.4050, L100.0100 #### [facility] [address] [place], [address] Glucose [Mass/Vol] 181 mg/dL High 70-99 [facility] Comment on above: Performed By: #### L 506.1001, L501.9985, L500.4100, L500.4050, L100.0100 #### [facility] [address] [place], [address] Potassium [Moles/Vol] 4.2 mmol/L Normal 3.3-5.1 [facility] Comment on above: Performed By: #### L 506.1001, L501.9985, L500.4100, L500.4050, L100.0100 #### [facility] [address] [place], [address] Sodium [Moles/Vol] 135 mmol/L Normal 133-145 [facility] Comment on above: Performed By: #### L 506.1001, L501.9985, L500.4100, L500.4050, L100.0100 #### [facility] [address] [place], [address] T PROT 8.1 g/dL Normal 5.9-8.4 [facility] Comment on above: Performed By: #### L 506.1001, L501.9985, L500.4100, L500.4050, L100.0100 #### [facility] [address] [place], [address] Urea nitrogen [Mass/Vol] 7 mg/dL Normal 4-19 [facility] Comment on above: Performed By: #### L 506.1001, L501.9985, L500.4100, L500.4050, L100.0100 #### [facility] [address] [place], [address] D-Dimer Quantitative (DVT/PE )on 12-08-2024 D-DIMER QUANT 0.48 FEU/ug/m Normal 0.27-0.49 [facility] Comment on above: Result Comment: NORM AL D-Dimer level (<0.50) indicates no DVT or PE. Performed By: #### L 300.8000 #### [facility] [address] [place], [address] Hemoglobin A1con 12-08-2024 HbA1c (Bld) [Mass fraction] 9.7 % High <=5.6 [facility] Comment on above: Result Comment: Norm al < 5.7 % Prediabetic 5.7 - 6.4 % Diabetic >or= 6.5 % Please note range changes. Performed By: #### L 506.1001, L501.9985, L500.4100, L500.4050, L100.0100 #### [facility] [address] [place], [address] Lipid Profileon 12-08-2024 CHOL:HDL 2.96 Normal [facility] Comment on above: Performed By: #### L 506.1001, L501.9985, L500.4100, L500.4050, L100.0100 #### [facility] [address] [place], [address] Cholesterol [Mass/Vol] 146 mg/dL Normal <=200 [facility] Comment on above: Result Comment: Chol esterol level, Desirable <200 mg/dL Borderline high cholesterol 200-239 mg/dL High cholesterol >=240 mg/dL Recommendations of the NCEP Adult Treatment Panel for the following risk-cutoff thresholds for the [place] population. Performed By: #### L 506.1001, L501.9985, L500.4100, L500.4050, L100.0100 #### [facility] [address] [place], [address] Cholesterol in HDL [Mass/Vol] 49 mg/dL Normal [facility] Comment on above: Result Comment: [place] onal Cholesterol Education Program (NCEP) guidelines: <40 mg/dL: Low HDL-cholesterol (major risk factor for CHD) >= 60 mg/dL: High HDL-cholesterol (negative risk factor for CHD) HDL-cholesterol is affected by a number of factors, e.g. smoking, exercise, hormones, sex and age. Performed By: #### L 506.1001, L501.9985, L500.4100, L500.4050, L100.0100 #### [facility] [address] [place], [address] Cholesterol in LDL [Mass/Vol] 80 mg/dL Normal [facility] Comment on above: Result Comment: Bord vjrqld=973-732 mg/dL Higher Dtum=854 mg/dL or greater Performed By: #### L 506.1001, L501.9985, L500.4100, L500.4050, L100.0100 #### [facility] [address] [facility] [address] Cholesterol in VLDL [Mass/Vol] 17 mg/dL Normal 5-40 [facility] Comment on above: Performed By: #### L 506.1001, L501.9985, L500.4100, L500.4050, L100.0100 #### [facility] [address] [place], [address] Triglyceride [Mass/Vol] 85 mg/dL Normal [facility] Comment on above: Result Comment: The drugs N-Acetylcysteine and Metamizole may falsely depress this assay. Normal range: <150 mg/dL Borderline High: 150-199 mg/dL High: 200-499 mg/dL Very High: >500 mg/dL Performed By: #### L 506.1001, L501.9985, L500.4100, L500.4050, L100.0100 #### [facility] [address] [place], [address] Vitamin D,25 Hydroxyon 12-08 Vitamin D 25-OH 17.9 ng/mL Low 30-100 [facility] Comment on above: Result Comment: Dawna min D Status Deficiency: <20 ng/mL (50nmol/L) Insufficiency: 20-30 ng/mL (50-75 nmol/L) Sufficiency: 30-100 ng/mL (75-250 nmol/L) Toxicity: >100 ng/mL (>250 nmol/L) Performed By: #### L 506.1001, L501.9985, L500.4100, L500.4050, L100.0100 #### [facility] [address] [place], [address] Oncology Visit Reporton Oncology Visit Report [facility] [address] [place] [address] OFFICE VISIT Date of Service: 12/06/24 1305 MR#: [id number] Acct: [id number] Name: NICKI JIMENEZ Rep #: [id number] : 1990 From: Jhoan Ramirez MD Age/Sex: 34/F Location: [facility] Status: Signed HPI Subjective Date of Service 12/06/24 Chief Complaint Referred for DVT management. 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 She has the first diagnosis in 2011 when she was on OCPs and also a smoker. She was treated with Coumadin but does not know how long. She had swelling of the left leg in November 2022 and went to the ER in [place]. Doppler study on 11/09/2022 showed left posterior tibial vein DVT. CTA on 11/07/2027 showed tiny subsegmental embolus in the right lower lobe with a 13 mm nodule in the right lower lobe. She was started on Lovenox then changed to Eliquis, currently on Eliquis 5 mg twice daily. She moved to the area and is referred for further evaluation. Denies family history, has stop smoking cigarettes. [facility] Medical History Diabetes Surgical History Hx of cholecystectomy Family History Father Gastric ulcer Hypertension Mother Diabetes Grandfather Diabetes Grandmother CVA (cerebral vascular accident) Glaucoma Social History household members: spouse current occupational status: employed current occupation: [employer] Smoking Status: Former smoker quit date: 06/06/19 pack-years: 5 alcohol intake: never substance use type: does not use do you feel safe at home: Yes ROS Constitutional Constitutional: Reports systems reviewed and no addt'l complaints, except as documented Eyes Eyes: Reports systems reviewed and no addt'l complaints, except as documented ENT HEENT: Reports systems reviewed and no addt'l complaints, except as documented Cardiovascular Cardiovascular: Reports systems reviewed and no addt'l complaints, except as documented Respiratory/Chest Respiratory/Chest: Reports systems reviewed and no addt'l complaints, except as documented Gastrointestinal Gastrointestinal: Reports systems reviewed and no addt'l complaints, except as documented Genitourinary Genitourinary: Reports systems reviewed and no addt'l complaints, except as documented Musculoskeletal Musculoskeletal: Reports systems reviewed and no addt'l complaints, except as documented Integumentary Integumentary: Reports systems reviewed and no addt'l complaints, except as documented Neurologic Neurologic: Reports systems reviewed and no addt'l complaints, except as documented Psychiatric Psychiatric: Reports systems reviewed and no addt'l complaints, except as documented Endocrine Endocrinology: Reports systems reviewed and no addt'l complaints, except as documented Hematologic/Lymphati c Hematologic/Lymphati c: Reports systems reviewed and no addt'l complaints, except as documented Allergic/Immunologic Allergic/Immunologic : Reports systems reviewed and no addt'l complaints, except as documented Intake Vital Signs 11/28/24 07:35 12/06/24 13:08 Height 5 ft 9 in 5 ft 9 in Weight: 175.767 kg BMI 57.2 BP 155/79 H Blood Pressure Location Rt brachial Position Sitting Respiration 18 Pulse 85 Pulse Source Monitor Temp 98 F Temperature Source Temporal Artery Pulse Oximetry (%) 98 Oxygen Delivery Method room air Intake Accompanied by: Self Is patient in pain?: No Allergies No Known Allergies Allergy (Verified 12/06/24 13:06) Medications ???Medication ???Instructions ???Recorded ???Confirmed ???Type apixaban 5 mg tablet (Eliquis) 5 mg PO BID 09/12/24 12/06/24 Hist ory metformin 500 mg tablet 500 mg PO BID #180 tabs 09/12/24 0 12/06/24 Rx semaglutide 0.25 mg or 0.5 mg (2 0.5 mg subcut QWEEK 09/12/2412/06 History mg/1.5 mL) subcutaneous pen injector (Ozempic) cariprazine 1.5 mg capsule 1.5 mg PO QDAY #30 caps 11/28/24 0 12/06/24 Rx (Vraylar) citalopram 20 mg tablet 20 mg PO QDAY #90 tabs 11/28/24 Rx lisinopril 10 mg tablet 10 mg PO QDAY #90 tabs 11/28/24 Rx Central Venous Access Central Venous Access: No Exam Physical Exam Narrative plump woman Const alert, oriented x3 and no apparent distress HEENT normocephalic, external ears normal and external nose normal Eyes conjunctivae normal and no scleral icterus Neck supple Lymph Lymphatic: no lymphadenopathy noted Resp normal respiratory effort and clear to auscultation bilaterally Cardio regular rate, regular rhythm, S1 normal heart s (more content not included)... Normal [facility] Internal Medicine Office Vis [facility] 11-27-2024 Internal Medicine Office Visit [facility] [address] [place] [address] [place] [address] OFFICE VISIT Date of Service: 11/28/24 MR#: [id number] Acct: [id number] Name: NICKI JIMENEZ Rep #: [id number] : 1990 Provider: Dr. Kourtney garcia MD Age/Sex: 34/F Location[place] [facility] Status: Signed Intake Vital Signs 09/12/24 08:12 11/28/24 07:35 Height 5 ft 9 in 5 ft 9 in Weight: 389 lb BMI 57.4 BP 142/80 H Blood Pressure Location Lt radial Position Sitting Respiration 16 Pulse 87 Pulse Source Monitor Temp 99 F Temp Source Temporal Pulse Oximetry (%) 98 Oxygen Delivery Method room air Intake Visit Reasons: NEEDS RESCHEDULED Pourer Required: No Is patient in pain?: No Allergies No Known Allergies Allergy (Verified 11/28/24 07:19) Medications ???Medication ???Instructions ???Recorded ???Confirmed ???Type apixaban 5 mg tablet (Eliquis) 5 mg PO BID 09/12/24 11/28/24 Hist ory metformin 500 mg tablet 500 mg PO BID #180 tabs 09/12/24 0 11/28/24 Rx semaglutide 0.25 mg or 0.5 mg (2 0.5 mg subcut QWEEK 09/12/2411/28 History mg/1.5 mL) subcutaneous pen injector (Ozempic) cariprazine 1.5 mg capsule 1.5 mg PO QDAY #30 caps 11/28/24 0 11/28/24 Rx (Keilalar) citalopram 20 mg tablet 20 mg PO QDAY #90 tabs 11/28/24 Rx lisinopril 10 mg tablet 10 mg PO QDAY #90 tabs 11/28/24 Rx Nurse's Note: Pt states she had some nausea and vomiting yesterday but is fine today, she thinks it was her period as she has been having issues lately w/ periods. Patient states that she never called [facility] but she is not certain if they reached out to her as her voicemail was acting up. Number given and patient took pamphlet for the portal. Pt had to call off work yesterday due to this. Pt needs 90 days to mail order for maintence meds besides the semaglutide specifically she recieved a letter about citalopram. [facility] Medical History Diabetes Surgical History Hx of cholecystectomy Family History Father Gastric ulcer Hypertension Mother Diabetes Grandfather Diabetes Grandmother CVA (cerebral vascular accident) Glaucoma Social History household members: spouse current occupational status: employed current occupation: [employer] Smoking Status: Former smoker quit date: 06/06/19 pack-years: 5 alcohol intake: never substance use type: does not use do you feel safe at home: Yes Questionnaire PQH-9 BMS Over the last 2 weeks, how often have you been bothered by any of the following problems? 1. Little interest or pleasure in doing things: several days 2. Feeling down, depressed, or hopeless: several days 3. Trouble falling or staying asleep, or sleeping too much: nearly every day 4. Feeling tired or having little energy: nearly every day 5. Poor appetite or overeating: nearly every day (waxes and wanes to 1 end) 6. Feeling bad about yourself - or that you are a failure or have let yourself and your family down: nearly every day 7. Trouble concentrating on things, such as reading the newspaper or watching television: nearly every day 8. Moving or speaking so slowly that other people could have noticed? - Or the opposite - being so fidgety or restless that you have been moving around a lot more than usual: not at all 9. Thoughts that you would be better off or of hurting yourself in some way: not at all Total score: 17 If you checked off any problems, how difficult have these problems made it for you to do your work, take care of things at home, or get along with other people?: somewhat difficult Source: Developed by Drs. Frankie Quintana, Casi Cordova, Darrin Tinajero and colleagues, with an educational abel from [employer].. IGLESIA-7 BMS IGLESIA-7 Feeling nervous, anxious, or on edge: 3 = Nearly every day Not being able to stop or control worryin = More than half the days Worrying too much about different things: 3 = Nearly every day Trouble relaxin = Nearly every day (can relax when by self) Being so restless that it is hard to sit still: 3 = Nearly every day Becoming easily annoyed or irritable: 1 = Several days Feeling afraid as if something awful might happen: 3 = Nearly every day Total IGLESIA-7 score (0-4 normal; 5-9 mild; 10-14 moderate; 15-21 severe): 18 Source: Developed by Drs. Frankie Quintana, Casi Cordova, Darrin Tinajero and colleagues, with an educational abel from [employer].. HPI HPI Details: NICKI JIMENEZ, is a 34 F who presents to the office today for a follow up. She never did her blood work as previously ordered. She is due for a pap s (more content not included)... Normal [facility] Internal Medicine Office Vis iton 09-11-2024 Internal Medicine Office Visit [facility] [address] [place], [place] [id number] OFFICE VISIT Date of Service: 09/12/24 MR#: [id number] Acct: [id number] Name: NICKI JIMENEZ Rep #: [id number] : 1990 Provider: Dr. 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 Is patient in pain?: No Allergies No Known Allergies Allergy (Verified 09/12/24 08:06) Medications ???Medication ???Instructions ???Recorded ???Confirmed ???Type ondansetron 4 mg disintegrating 4 mg PO Q8H PRN PRN Nausea #10 tab s 06/19/18 06/20/18 Rx tablet apixaban 5 mg tablet (Eliquis) 5 mg PO BID 09/12/24 09/12/24 Hist ory citalopram 20 mg tablet 20 mg PO QDAY #30 tabs 09/12/24 Rx lisinopril 10 mg tablet 10 mg PO QDAY #90 tabs 09/12/24 Rx metformin 500 mg tablet 500 mg PO BID #180 tabs 09/12/24 0 09/12/24 Rx semaglutide 0.25 mg or 0.5 mg (2 0.5 mg subcut QWEEK 09/12/2409/12 History mg/1.5 mL) subcutaneous pen injector (Ozempic) [facility] Medical History (Updated 09/12/24 @ 08:[address] Kourtney Doyle MD) Diabetes Surgical History (Updated 09/12/24 @ 08:[address] Kourtney Doyle MD) Hx of cholecystectomy Family History (Updated 09/12/24 @ 08:[address] Kourtney Doyle MD) Father Gastric ulcer Hypertension Mother Diabetes Grandfather Diabetes Grandmother CVA (cerebral vascular accident) Glaucoma Social History (Updated 09/12/24 @ 08:[address] Kourtney Doyle MD) household members: spouse current occupational status: employed current occupation: [employer] Smoking Status: Former smoker quit date: 06/06/19 pack-years: 5 alcohol intake: never substance use type: does not use do you feel safe at home: Yes Questionnaire [facility]-9 BMS Over the last 2 weeks, how often have you been bothered by any of the following problems? 1. Little interest or pleasure in doing things: not at all 2. Feeling down, depressed, or hopeless: several days 3. Trouble falling or staying asleep, or sleeping too much: more than half the days 4. Feeling tired or having little energy: nearly every day 5. Poor appetite or overeating: several days 6. Feeling bad about yourself - or that you are a failure or have let yourself and your family down: more than half the days 7. Trouble concentrating on things, such as reading the newspaper or watching television: nearly every day 8. Moving or speaking so slowly that other people could have noticed? - Or the opposite - being so fidgety or restless that you have been moving around a lot more than usual: nearly every day 9. Thoughts that you would be better off or of hurting yourself in some way: not at all Total score: 15 If you checked off any problems, how difficult have these problems made it for you to do your work, take care of things at home, or get along with other people?: somewhat difficult Source: Developed by Drs. Frankie Quintana, Darrin Mckeon and colleagues, with an educational abel from [employer].. IGLESIA-7 BMS IGLESIA-7 Feeling nervous, anxious, or on edge: 1 = Several days Not being able to stop or control worryin = Nearly every day Worrying too much about different things: 3 = Nearly every day Trouble relaxin = Several days Being so restless that it is hard to sit still: 1 = Several days Becoming easily annoyed or irritable: 1 = Several days Feeling afraid as if something awful might happen: 1 = Several days Total IGLESIA-7 score (0-4 normal; 5-9 mild; 10-14 moderate; 15-21 severe): 11 Source: Developed by Drs. Frankie Quintana, Darrin Mckeon and colleagues, with an educational abel from [employer].. 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 She was seeing Dr. Remy and last saw them a little over a year ago. She is due for some routine blood work. She is due for a pap smear. She doesn't want any further COVID vaccines. She doesn't smoke and does need refills. She reports she is trying to eat healthy and staying active. The patient was diagnosed with diabetes about 2 years ago. She doesn't check her sugars at home. She is taking her medication as prescribed, however, has been out of her metformin for at least 6 months. She has ozempic at home, but hasn't been taking it for the same length of time. She states since she was out of the metformin (more content not included)... Normal [facility] CBC with Auto Differentialon 07-20-2024 Basophils (Bld) [#/Vol] 0.02 10*3/uL [facility] Basophils/100 WBC (Bld) 0 % 0.0 - 2.0 % [facility] Eosinophils (Bld) [#/Vol] 0.12 10*3/uL [facility] Eosinophils/100 WBC (Bld) 1 % 0 - 6 % [facility] Erythrocyte distribution width (RBC) [Ratio] 12.6 % 11.5 - 15.0 % [facility] Hematocrit (Bld) [Volume fraction] 43.1 % 34.0 - 48.0 % [facility] Hemoglobin (Bld) [Mass/Vol] 13.9 g/dL 11.5 - 15.5 g/dL [facility] Immature granulocytes (Bld) [#/Vol] 0.04 10*3/uL [facility] Immature granulocytes/100 WBC (Bld) 0 % 0.0 - 5.0 % [facility] Lymphocytes/100 WBC (Bld) 24 % 20.0 - 42.0 % [facility] Lymphocytes/100 WBC (Bld) 2.35 % [facility] MCH (RBC) [Entitic mass] 27.2 pg 26.0 - 35.0 pg [facility] MCHC (RBC) [Mass/Vol] 32.3 g/dL 32.0 - 34.5 g/dL [facility] MCV (RBC) [Entitic vol] 84.3 fL 80.0 - 99.9 fL [facility] Monocytes/100 WBC (Bld) 7 % 2.0 - 12.0 % [facility] Monocytes/100 WBC (Bld) 0.69 % [facility] Neutrophils/100 WBC (Bld) 67 % 43.0 - 80.0 % [facility] Platelet mean volume (Bld) [Entitic vol] 10.1 fL 7.0 - 12.0 fL [facility] Platelets (Bld) [#/Vol] 377 10*3/uL [facility] RBC (Bld) [#/Vol] 5.11 10*6/uL 3.50 - 5.5 0 m/uL [facility] Segmented neutrophils/100 WBC (Bld) 6.65 % [facility] WBC other (Bld) [#/Vol] 9.9 [facility] CBC with Diffon 07-20-2024 Abs. Basophil 0.02 k/uL Normal 0.00-0.20 [facility] Comment on above: Performed By: #### C BCWD #### [place] [address] Forensic Medical Examiner: Arie Thornton MD Abs.Imm.Granulocyte 0.04 k/uL Normal 0.00-0.58 [facility] Comment on above: Performed By: #### C BCWD #### [place] [address] Forensic Medical Examiner: Arie Thornton MD Abs.Neutrophil (Seg) 6.65 k/uL Normal 1.80-7.30 [facility] Comment on above: Performed By: #### C BCWD #### [place] [address] Forensic Medical Examiner: Arie Thornton MD Basophils/100 WBC (Bld) 0 % Normal 0.0-2.0 [facility] Comment on above: Performed By: #### C BCWD #### [place] [address] Forensic Medical Examiner: Arie Thornton MD Eosinophils (Bld) [#/Vol] 0.12 10*3/uL Normal 0.05-0.50 [facility] Comment on above: Performed By: #### C BCWD #### [place] [address] Forensic Medical Examiner: Arie Thornton MD Eosinophils/100 WBC (Bld) 1 % Normal 0-6 [facility] Comment on above: Performed By: #### C BCWD #### [place] [address] Forensic Medical Examiner: Arie Thornton MD Erythrocyte distribution width (RBC) [Ratio] 12.6 % Normal 11.5-15.0 [facility] Comment on above: Performed By: #### C BCWD #### [place] [address] Forensic Medical Examiner: Arie Thornton MD Hematocrit (Bld) [Volume fraction] 43.1 % Normal 34.0-48.0 [facility] Comment on above: Performed By: #### C BCWD #### [place] [address] Forensic Medical Examiner: Arie Thornton MD Hemoglobin (Bld) [Mass/Vol] 13.9 g/dL Normal 11.5-15.5 [facility] Comment on above: Performed By: #### C BCWD #### [place] [address] Forensic Medical Examiner: Arie Thornton MD Immature granulocytes/100 WBC (Bld) 0 % Normal 0.0-5.0 [facility] Comment on above: Performed By: #### C BCWD #### [place] [address] Forensic Medical Examiner: Arie Thornton MD Lymphocytes (Bld) [#/Vol] 2.35 10*3/uL Normal 1.50-4.00 [facility] Comment on above: Performed By: #### C BCWD #### [place] [address] Forensic Medical Examiner: Arie Thornton MD Lymphocytes/100 WBC (Bld) 24 % Normal 20.0-42.0 [facility] Comment on above: Performed By: #### C BCWD #### [place] [address] Forensic Medical Examiner: Arie Thornton MD MCH (RBC) [Entitic mass] 27.2 pg Normal 26.0-35.0 [facility] Comment on above: Performed By: #### C BCWD #### [address] [address] Forensic Medical Examiner: Arie Thornton MD MCHC (RBC) [Mass/Vol] 32.3 g/dL Normal 32.0-34.5 [facility] Comment on above: Performed By: #### C BCWD #### [address] [address] Forensic Medical Examiner: Arie Thornton MD MCV (RBC) [Entitic vol] 84.3 fL Normal 80.0-99.9 [facility] Comment on above: Performed By: #### C BCWD #### [place] [address] Forensic Medical Examiner: Arie Thornton MD Monocytes (Bld) [#/Vol] 0.69 10*3/uL Normal 0.10-0.95 [facility] Comment on above: Performed By: #### C BCWD #### [place] [address] Forensic Medical Examiner: Arie Thornton MD Monocytes/100 WBC (Bld) 7 % Normal 2.0-12.0 [facility] Comment on above: Performed By: #### C BCWD #### [place] [address] Forensic Medical Examiner: Arie Thornton MD Neutrophil (Seg) 67 % Normal 43.0-80.0 [facility] Comment on above: Performed By: #### C BCWD #### [address] [address] Forensic Medical Examiner: Arie Thornton MD Platelet mean volume (Bld) [Entitic vol] 10.1 fL Normal 7.0-12.0 [facility] Comment on above: Performed By: #### C BCWD #### [address] [place] [address] Forensic Medical Examiner: Arie Thornton MD Platelets (Bld) [#/Vol] 377 10*3/uL Normal 130-450 [facility] Comment on above: Performed By: #### C BCWD #### [address] [place] [address] Forensic Medical Examiner: Arie Thornton MD RBC (Bld) [#/Vol] 5.11 10*6/uL Normal 3.50-5.50 [facility] Comment on above: Performed By: #### C BCWD #### [address] [place] [address] Forensic Medical Examiner: Arie Thornton MD WBC (Bld) [#/Vol] 9.9 10*3/uL Normal 4.5-11.5 [facility] Comment on above: Performed By: #### C BCWD #### [address] [place] [address] Forensic Medical Examiner: Arie Thornton MD Antithrombin 3 Activityon Antithrombin actual/normal Chromogenic method (PPP) [Rel catalytic activity/Vol] 82 % Low 83 - 121 % [facility] Interpretation and review of laboratory results Abnormal [facility] Dilute [place] Venom Viper T imeon 02-15-2023 Dilute Viper Venom Time Positive Abnormal NEGATIVE [facility] Comment on above: THIS IS A CORRECTED RESULT Lupus Anticoag DRVVT - LLA1 is a screening test and is not diagnostic for lupus anticoagulant. If the result is POSITIVE, follow-up testing for definitive identification would include: Lupus Anticoagulant Reflexive Panel. Ordered in [facility] as: [id number] Comment: [facility] test [id number] Lupus Anticoagulant Reflexive Panel CORRECTED ON 02/15 AT 1144: PREVIOUSLY REPORTED NEGATIVE Lupus Anticoag DRVVT LLA1 is a screening test and is not diagnostic for lupus anticoagulant. If the result is POSITIVE, follow up testing for definitive identification would include: Lupus Anticoagulant Reflexive Panel. Ordered in [facility] as: [id number] Comment: [facility] test [id number] Lupus Anticoagulant Reflexive Panel Interpretation and review of laboratory results Abnormal [facility] No Panel Informationon 02-15 [facility] Protein C Functionalon 02-15 Protein C Activity 108 % 68 - 165 % [facility] Factor V Mutationon 01-06-20 23 F 5 SPECIMEN Whole Blood Normal [facility] Comment on above: Performed By: #### A PTMUT, [id number] #### [facility] [address] [place] [address] Forensic Medical Examiner: Derek Roth MD FACTOR 5 MUTATION Negative Normal [facility] Comment on above: Result Comment: (NOT E) Indication for testing: Assess genetic risk for thrombosis. NEGATIVE: The factor V Leiden variant, c.1601G>A; [id number], was not detected. This does not exclude a genetic cause for thrombophilia. If this individual has had a previous venous thromboembolism, this negative result is unlikely to significantly reduce the risk for recurrence; thus, future clinical management to reduce recurrence should not be altered. This result has been reviewed and approved by John Paul Curtis, Ph.D. BACKGROUND INFORMATION: Factor V Leiden (F5) R506Q Mutation CHARACTERISTICS: Venous thromboembolism (VTE) is multifactorial caused by a combination of genetic and environmental factors. The Factor V Leiden (FVL) variant is the most common cause of inherited VTEs, accounting for over 90 percent of activated protein C (APC) resistance. Because the FVL variant eliminates the APC cleavage site, factor V is inactivated slower, thus persisting longer in blood circulation, leading to more thrombin production. Other genetic risk factors for VTE include, male sex and variants in antithrombin, protein C, protein S, or factor XIII. Non-genetic risk factors include, age, smoking, prolonged immobilization, malignant neoplasms, surgery, , oral contraceptives, estrogen replacement therapy, tamoxifen and raloxifene therapy. INCIDENCE OF FACTOR V LEIDEN VARIANT: Approximately 5 percent of Caucasians, 2 percent of Hispanics, 1 percent of Americans and 0.5 percent of Asians are heterozygous; homozygosity occurs in 1 in 1500 Caucasians. INHERITANCE: Semi-dominant; both heterozygotes and homozygotes are at increased risk for VTE. PENETRANCE: Lifetime risk of VTE is 10 percent for heterozygotes and 80 percent of homozygotes. 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 Legacy nomenclature: [id number] (1691G>A) CLINICAL SENSITIVITY: 20-50 percent of individuals with an isolated VTE have the FVL variant. METHODOLOGY: Polymerase chain reaction and fluorescence monitoring. ANALYTICAL SENSITIVITY AND SPECIFICITY: 99 percent. LIMITATIONS: Diagnostic errors can occur due to rare sequence variations. F5 gene mutations, other than p.[id number], will not be detected. This test was developed and its performance characteristics determined by [facility]. It has not been cleared or approved by the US Food and Drug Administration. This test was performed in a CLIA certified laboratory and is intended for clinical purposes. Counseling and informed consent are recommended for genetic testing. Consent forms are available online. Performed By: [facility] [address] [place] [address] Vending Machine Attendant: Christoph Jimenez MD, PhD CLIA Number: [id number] Performed By: #### A PTMUT, AF5MUT #### [facility] [address] [place] [address] Forensic Medical Examiner: Derek Roth MD PT Mutation [id number] 01-06-20 23 PT [id number] VARIANT Negative Normal [facility] Comment on above: Result Comment: (NOT E) Indication for testing: Assess genetic risk for thrombosis. NEGATIVE: The Factor II, prothrombin [id number] mutation, was not detected. Other causes of elevated prothrombin levels and hereditary forms of venous thrombosis have not been excluded. Recommendations: If clinically indicated, testing for other inherited or acquired thrombophilic disorders is recommended including DNA testing for the factor V Leiden mutation, measurement of total plasma homocysteine concentration, serological assays for anticardiolipin antibodies, multiple phospholipid-dependent coagulation assays for lupus inhibitor, protein C activity, protein S activity or free protein S antigen, and antithrombin activity. This result has been reviewed and approved by John Paul Curtis, Ph.D. BACKGROUND INFORMATION: Prothrombin (F2) c.*97G>A (L62555R) Pathogenic Variant CHARACTERISTICS: The Factor II, c.*97G>A (G75160O) pathogenic variant is a common genetic risk factor for venous thrombosis associated with elevated prothrombin levels leading to increased rates of thrombin generation and excessive growth of fibrin clots. The expression of Factor II thrombophilia is impacted by coexisting genetic thrombophilic disorders, acquired thrombophilic disorders (eg, malignancy, hyperhomocysteinemia, high factor VIII levels), and circumstances including: , oral contraceptive use, hormone replacement therapy, selective estrogen receptor modulators, travel, central venous catheters, surgery, and organ transplantation. INCIDENCE: Approximately 2 percent of Caucasians and 0.3 percent of Americans are heterozygous; homozygosity occurs in 1 in 10,000 individuals. INHERITANCE: Incomplete autosomal dominant. PENETRANCE: The risk of thrombosis is increased 2-4 fold for heterozygotes and further increased for homozygotes. CAUSE: Homozygosity or heterozygosity for F2 c.*97G>A (N75933U). PATHOGENIC VARIANT TESTED: F2 c.*97G>A (V51547L). CLINICAL SENSITIVITY FOR VENOUS THROMBOSIS: Approximately 10 percent. METHODOLOGY: Polymerase chain reaction and fluorescence monitoring. ANALYTICAL SENSITIVITY AND SPECIFICITY: 99 percent. LIMITATIONS: Diagnostic errors can occur due to rare sequence variations. F2 gene variants, other than c.*97G>A (I37267G), will not be detected. This test was developed and its performance characteristics determined by [facility]. It has not been cleared or approved by the US Food and Drug Administration. This test was performed in a CLIA certified laboratory and is intended for clinical purposes. Counseling and informed consent are recommended for genetic testing. Consent forms are available online. Performed By: [facility] [address] [place] [address] Vending Machine Attendant: Christoph Jimenez MD, PhD CLIA Number: [id number] Performed By: #### A CHARLENE AF5MUT #### [facility] [address] [place] [address] Forensic Medical Examiner: Derek Roth MD PT PCR SPECIMEN Whole Blood Normal [facility] Comment on above: Performed By: #### A TRAVIS5MUT #### [facility] [address] [place] [address] Forensic Medical Examiner: Derek Roth MD Antithrombin III Atlantic 12-31 Antithrombin III Act 80 % Low 83-121 [facility] Comment on above: Performed By: #### A T3A, TSH, LIPR #### [address] [place] [address] Forensic Medical Examiner: Arie Thornton MD Hemoglobin A1Con 12-30-2022 HbA1c (Bld) [Mass fraction] 9.7 % High 4.0-5.6 [facility] Comment on above: Performed By: #### G LYHGB #### [address] [place] [address] Forensic Medical Examiner: Arie Thornton MD Lipid Profileon 12-30-2022 Cholesterol [Mass/Vol] 153 mg/dL Normal <200 [facility] Comment on above: Performed By: #### A T3A, TSH, LIPR #### [address] [place] [address] Forensic Medical Examiner: Arie Thornton MD Cholesterol in HDL [Mass/Vol] 47 mg/dL Normal >40 [facility] Comment on above: Performed By: #### A T3A, TSH, LIPR #### [address] [place] [address] Forensic Medical Examiner: Arie Thornton MD Cholesterol in LDL [Mass/Vol] 91 mg/dL Normal <100 [facility] Comment on above: Performed By: #### A T3A, TSH, LIPR #### [address] [place] [address] Forensic Medical Examiner: Arie Thornton MD Cholesterol in VLDL [Mass/Vol] 15 mg/dL Normal [facility] Comment on above: Result Comment: No n ormal range established. Performed By: #### A T3A, TSH, LIPR #### [address] [place] [address] Forensic Medical Examiner: Arie Thornton MD Triglyceride [Mass/Vol] 75 mg/dL Normal <150 [facility] Comment on above: Performed By: #### A T3A, TSH, LIPR #### [address] [place] [address] Forensic Medical Examiner: Arie Thornton MD Thyroid Stim. Horm.on 2022 Thyroid Stim. Horm. 3.46 uIU/mL Normal 0.27-4.20 [facility] Comment on above: Performed By: #### A T3A, TSH, LIPR #### [address] [place] [address] Forensic Medical Examiner: Arie Thornton MD CBC with Auto Differentialon 11-10-2022 Basophils (Bld) [#/Vol] 0.04 10*3/uL [facility] Basophils/100 WBC (Bld) 0.5 % 0.0 - 2.0 % [facility] Eosinophils (Bld) [#/Vol] 0.09 10*3/uL [facility] Eosinophils/100 WBC (Bld) 1.0 % 0.0 - 6.0 % [facility] Erythrocyte distribution width (RBC) [Ratio] 13.3 fL 11.5 - 15.0 fL [facility] Hematocrit (Bld) [Volume fraction] 37.2 % 34.0 - 48.0 % [facility] Hemoglobin (Bld) [Mass/Vol] 11.6 g/dL 11.5 - 15.5 g/dL [facility] Immature granulocytes (Bld) [#/Vol] 0.02 10*3/uL E9/L [facility] Immature granulocytes/100 WBC (Bld) 0.2 % 0.0 - 5.0 % [facility] Interpretation and review of laboratory results Abnormal [facility] Lymphocytes (Bld) [#/Vol] 2.64 10*3/uL [facility] Lymphocytes/100 WBC (Bld) 30.3 % 20.0 - 42.0 % [facility] MCH (RBC) [Entitic mass] 27.0 pg 26.0 - 35.0 pg [facility] MCHC (RBC) [Mass/Vol] 31.2 % Low 32.0 - 34.5 % [facility] MCV (RBC) [Entitic vol] 86.7 fL 80.0 - 99.9 fL [facility] Monocytes (Bld) [#/Vol] 0.50 10*3/uL [facility] Monocytes/100 WBC (Bld) 5.7 % 2.0 - 12.0 % [facility] Neutrophils (Bld) [#/Vol] 5.43 10*3/uL [facility] Platelet mean volume (Bld) [Entitic vol] 10.0 fL 7.0 - 12.0 fL [facility] Platelets (Bld) [#/Vol] 343 10*3/uL [facility] RBC (Bld) [#/Vol] 4.29 10*6/uL [facility] S [facility] Segmented neutrophils/100 WBC (Bld) 62.3 % 43.0 - 80.0 % [facility] WBC (Bld) [#/Vol] 8.7 10*3/uL [facility] Comprehensive metabolic 2000 panelon 11-10-2022 Albumin [Mass/Vol] 3.6 g/dL 3.5 - 5.2 g/dL [facility] ALP [Catalytic activity/Vol] 97 U/L 35 - 104 U/L [facility] ALT [Catalytic activity/Vol] 39 U/L High 0 - 32 U/L [facility] Anion gap [Moles/Vol] 13 mmol/L 7 - 16 mmol/L [facility] AST [Catalytic activity/Vol] 45 U/L High 0 - 31 U/L [facility] Comment on above: Specimen is slightly Hemolyzed. Result may be artificially increased. Bilirubin [Mass/Vol] 0.5 mg/dL 0.0 - 1 .2 mg/dL [facility] Calcium [Mass/Vol] 8.6 mg/dL 8.6 - 10. 2 mg/dL [facility] Chloride [Moles/Vol] 102 mmol/L 98 - 10 7 mmol/L [facility] CO2 [Moles/Vol] 21 mmol/L Low 22 - 29 mmol/L [facility] Creatinine [Mass/Vol] 0.5 mg/dL 0.5 - 1.0 mg/dL [facility] GFR/1.73 sq M.predicted among non-blacks MDRD (S/P/Bld) [Vol rate/Area] mL/min/1.73 60 - PINF mL/min/1.73 [facility] Comment on above: Pediatric calculator link https://www.kidney.org/professionals/kdoqi/gfr_calculatorped Effective Mar 08, 2022 These results are not intended for use in patients <18 years of age. eGFR results are calculated without a race factor using the 2020 CKD-EPI equation. Careful clinical correlation is recommended, particularly when comparing to results calculated using previous equations. The CKD-EPI equation is less accurate in patients with extremes of muscle mass, extra-renal metabolism of creatinine, excessive creatinine ingestion, or following therapy that affects renal tubular secretion. Glucose [Mass/Vol] 175 mg/dL High 74 - 99 mg/dL [facility] Interpretation and review of laboratory results Abnormal [facility] Potassium [Moles/Vol] 3.9 mmol/L 3.5 - 5.0 mmol/L [facility] Protein [Mass/Vol] 7.6 g/dL 6.4 - 8.3 g/dL [facility] Sodium [Moles/Vol] 136 mmol/L 132 - 146 mmol/L [facility] Urea nitrogen [Mass/Vol] 8 mg/dL 6 - 20 mg/dL [facility] APTTon 11-09-2022 aPTT Coag (Bld) [Time] 31.4 s [facility] Brain Natriuretic Peptideon 11-09-2022 Natriuretic peptide B (Bld) [Mass/Vol] 43 pg/mL 0 - 125 pg/mL [facility] CBC with Auto Differentialon 11-09-2022 Basophils (Bld) [#/Vol] 0.04 10*3/uL [facility] Basophils/100 WBC (Bld) 0.3 % 0.0 - 2.0 % [facility] Eosinophils (Bld) [#/Vol] 0.11 10*3/uL [facility] Eosinophils/100 WBC (Bld) 0.9 % 0.0 - 6.0 % [facility] Erythrocyte distribution width (RBC) [Ratio] 13.2 fL 11.5 - 15.0 fL [facility] Hematocrit (Bld) [Volume fraction] 42.4 % 34.0 - 48.0 % [facility] Hemoglobin (Bld) [Mass/Vol] 13.3 g/dL 11.5 - 15.5 g/dL [facility] Immature granulocytes (Bld) [#/Vol] 0.06 10*3/uL E9/L [facility] Immature granulocytes/100 WBC (Bld) 0.5 % 0.0 - 5.0 % [facility] Interpretation and review of laboratory results Abnormal [facility] Lymphocytes (Bld) [#/Vol] 3.30 10*3/uL [facility] Lymphocytes/100 WBC (Bld) 25.7 % 20.0 - 42.0 % [facility] MCH (RBC) [Entitic mass] 26.9 pg 26.0 - 35.0 pg [facility] MCHC (RBC) [Mass/Vol] 31.4 % Low 32.0 - 34.5 % [facility] MCV (RBC) [Entitic vol] 85.8 fL 80.0 - 99.9 fL [facility] Monocytes (Bld) [#/Vol] 0.70 10*3/uL [facility] Monocytes/100 WBC (Bld) 5.5 % 2.0 - 12.0 % [facility] Neutrophils (Bld) [#/Vol] 8.61 10*3/uL High [facility] Platelet mean volume (Bld) [Entitic vol] 9.9 fL 7.0 - 12.0 fL [facility] Platelets (Bld) [#/Vol] 435 10*3/uL [facility] RBC (Bld) [#/Vol] 4.94 10*6/uL [facility] Segmented neutrophils/100 WBC (Bld) 67.1 % 43.0 - 80.0 % [facility] WBC (Bld) [#/Vol] 12.8 10*3/uL High [facility] CTA PULMONARY W CONTRASTon 0 11-09-2022 1. Tiny subsegmental embolus is suspected to the right lower lobe posteromedial basilar segment. Limitation secondary to suboptimal contrast bolus. No large central pulmonary embolus. No heart strain. 2. Macrolobulated 13 mm noncalcified pulmonary nodule of the posterolateral basilar segment right lower lobe. Likely benign in this age group, however, PET-CT evaluation and/or tissue sampling should be considered versus short-term follow-up in the setting of concomitant DVT. I contacted Dr. Richardson with the report via telephone at 1150 pm. RECOMMENDATIONS: Careful clinical correlation and follow up recommended. Consider PET-CT evaluation and/or tissue sampling for 13 mm noncalcified pulmonary nodule, especially in the setting of concomitant DVT. Alternatively, short-term follow-up in 3-6 months may suffice on the basis of carcinoma risk factors. [facility] EXAMINATION: CTA OF THE CHEST 11/09/2022 10:51 pm TECHNIQUE: CTA of the chest was performed after the administration of intravenous contrast. Multiplanar reformatted images are provided for review. MIP images are provided for review. Automated exposure control, iterative reconstruction, and/or weight based adjustment of the mA/kV was utilized to reduce the radiation dose to as low as reasonably achievable. COMPARISON: None. HISTORY: ORDERING SYSTEM PROVIDED HISTORY: DVT + palpitations; concern for PE TECHNOLOGIST PROVIDED HISTORY: Reason for exam:->DVT + palpitations; concern for PE Decision Support Exception - unselect if not a suspected or confirmed emergency medical condition->Emergency Medical Condition ([place]) What reading provider will be dictating this exam?->CRC FINDINGS: Pulmonary Arteries: Pulmonary arteries are suboptimally opacified for evaluation. A tiny subsegmental embolus is suspected to the right lower lobe posteromedial basilar segment. Main pulmonary artery is normal in caliber. Mediastinum: No evidence of mediastinal lymphadenopathy. The heart and pericardium demonstrate no acute abnormality. There is no acute abnormality of the thoracic aorta. Lungs/pleura: Macrolobulated 13 mm noncalcified pulmonary nodule of the posterolateral basilar segment right lower lobe. The lungs are without acute process. No focal consolidation or pulmonary edema. No evidence of pleural effusion or pneumothorax. Upper Abdomen: Limited images of the upper abdomen are unremarkable. Soft Tissues/Bones: No acute bone or soft tissue abnormality. [facility] Troy Ramires MD - 11/09/2022 EXAMINATION: CTA OF THE CHEST 11/09/2022 10:51 pm TECHNIQUE: CTA of the chest was performed after the administration of intravenous contrast. Multiplanar reformatted images are provided for review. MIP images are provided for review. Automated exposure control, iterative reconstruction, and/or weight based adjustment of the mA/kV was utilized to reduce the radiation dose to as low as reasonably achievable. COMPARISON: None. HISTORY: ORDERING SYSTEM PROVIDED HISTORY: DVT + palpitations; concern for PE TECHNOLOGIST PROVIDED HISTORY: Reason for exam:->DVT + palpitations; concern for PE Decision Support Exception - unselect if not a suspected or confirmed emergency medical condition->Emergency Medical Condition ([place]) What reading provider will be dictating this exam?->CRC FINDINGS: Pulmonary Arteries: Pulmonary arteries are suboptimally opacified for evaluation. A tiny subsegmental embolus is suspected to the right lower lobe posteromedial basilar segment. Main pulmonary artery is normal in caliber. Mediastinum: No evidence of mediastinal lymphadenopathy. The heart and pericardium demonstrate no acute abnormality. There is no acute abnormality of the thoracic aorta. Lungs/pleura: Macrolobulated 13 mm noncalcified pulmonary nodule of the posterolateral basilar segment right lower lobe. The lungs are without acute process. No focal consolidation or pulmonary edema. No evidence of pleural effusion or pneumothorax. Upper Abdomen: Limited images of the upper abdomen are unremarkable. Soft Tissues/Bones: No acute bone or soft tissue abnormality. IMPRESSION: 1. Tiny subsegmental embolus is suspected to the right lower lobe posteromedial basilar segment. Limitation secondary to suboptimal contrast bolus. No large central pulmonary embolus. No heart strain. 2. Macrolobulated 13 mm noncalcified pulmonary nodule of the posterolateral basilar segment right lower lobe. Likely benign in this age group, however, PET-CT evaluation and/or tissue sampling should be considered versus short-term follow-up in the setting of concomitant DVT. I contacted Dr. Richardson with the report via telephone at 1150 pm. RECOMMENDATIONS: Careful clinical correlation and follow up recommended. Consider PET-CT evaluation and/or tissue sampling for 13 mm noncalcified pulmonary nodule, especially in the setting of concomitant DVT. Alternatively, short-term follow-up in 3-6 months may suffice on the basis of carcinoma risk factors. [employer] Work Phone: Radiology Study observation (narrative) [employer] Phone: CTA PULMONARY W CONTRASTOrde red By: Troy Ramires on 11-09-2022 [employer] Work Phone: Comprehensive metabolic 2000 panelon 11-09-2022 Albumin [Mass/Vol] 4.5 g/dL 3.5 - 5.2 g/dL [facility] ALP [Catalytic activity/Vol] 129 U/L High 35 - 104 U/L [employer] ALT [Catalytic activity/Vol] 46 U/L High 0 - 32 U/L [employer] Anion gap [Moles/Vol] 14 mmol/L 7 - 16 mmol/L [employer] AST [Catalytic activity/Vol] 42 U/L High 0 - 31 U/L [employer] [facility] Bilirubin [Mass/Vol] 0.5 mg/dL 0.0 - 1 .2 mg/dL [employer] [facility] Calcium [Mass/Vol] 9.5 mg/dL 8.6 - 10. 2 mg/dL [employer] [facility] Chloride [Moles/Vol] 98 mmol/L 98 - 10 7 mmol/L [employer] CO2 [Moles/Vol] 22 mmol/L 22 - 29 mmol/L [facility] [place] Creatinine [Mass/Vol] 0.6 mg/dL 0.5 - 1.0 mg/dL [employer] GFR/1.73 sq M.predicted among non-blacks MDRD (S/P/Bld) [Vol rate/Area] mL/min/1.73 60 - PINF mL/min/1.73 [employer] Comment on above: Pediatric calculator link https://www.kidney.org/professionals/kdoqi/gfr_calculatorped Effective Mar 08, 2022 These results are not intended for use in patients <18 years of age. eGFR results are calculated without a race factor using the 2020 CKD-EPI equation. Careful clinical correlation is recommended, particularly when comparing to results calculated using previous equations. The CKD-EPI equation is less accurate in patients with extremes of muscle mass, extra-renal metabolism of creatinine, excessive creatinine ingestion, or following therapy that affects renal tubular secretion. Glucose [Mass/Vol] 167 mg/dL High 74 - 99 mg/dL [facility] Interpretation and review of laboratory results Abnormal [facility] Potassium [Moles/Vol] 3.9 mmol/L 3.5 - 5.0 mmol/L [facility] Protein [Mass/Vol] 8.9 g/dL High 6.4 - 8.3 g/dL [facility] Sodium [Moles/Vol] 134 mmol/L 132 - 146 mmol/L [facility] Urea nitrogen [Mass/Vol] 9 mg/dL 6 - 20 mg/dL [facility] No Panel Informationon 11-09 [facility] POC Urine QualOrde red By: Essence Mcgill on 11-09-2022 Beta HCG ( test) Ql (U) Negative Negative [facility] Lot Number [id number] [facility] Negative QC Pass/Fail Pass [employer] Positive QC Pass/Fail Pass [facility] Protime-INRon 11-09-2022 INR Coag (Bld) [Relative time] 1.2 {INR} [employer] Interpretation and review of laboratory results Abnormal [facility] PT Coag (PPP) [Time] 12.8 s High [facility] Troponinon 11-09-2022 Troponin, High Sensitivity 7 ng/L 0 - 9 ng/L [facility] Comment on above: High Sensitivity Tro ponin values cannot be compared with other Troponin methodologies. US DUP LOWER EXTREMITY LEFT VENon 11-09-2022 DVT, left posterior tibial vein. Critical results were called by Dr. Sukhdev Loo to Dr. Estelle Clinton on 11/09/2022 at 6:14 p.m. [facility] EXAMINATION: DUPLEX VENOUS ULTRASOUND OF THE LEFT LOWER EXTREMITY 11/09/2022 5:29 pm TECHNIQUE: Duplex ultrasound using B-mode/hess scaled imaging and Doppler spectral analysis and color flow was obtained of the deep venous structures of the left lower extremity. COMPARISON: None. HISTORY: ORDERING SYSTEM PROVIDED HISTORY: Discomfort TECHNOLOGIST PROVIDED HISTORY: Reason for exam:->Discomfort What reading provider will be dictating this exam?->CRC FINDINGS: Please note the study is limited due to the patient's body habitus. There is thrombus in the left posterior tibial vein. The remaining visualized veins of the left lower extremity are patent and free of echogenic thrombus. The veins demonstrate good compressibility with normal color flow study and spectral analysis. [facility] Sukhdev Allan MD - 11/09/2022 EXAMINATION: DUPLEX VENOUS ULTRASOUND OF THE LEFT LOWER EXTREMITY 11/09/2022 5:29 pm TECHNIQUE: Duplex ultrasound using B-mode/hess scaled imaging and Doppler spectral analysis and color flow was obtained of the deep venous structures of the left lower extremity. COMPARISON: None. HISTORY: ORDERING SYSTEM PROVIDED HISTORY: Discomfort TECHNOLOGIST PROVIDED HISTORY: Reason for exam:->Discomfort What reading provider will be dictating this exam?->CRC FINDINGS: Please note the study is limited due to the patient's body habitus. There is thrombus in the left posterior tibial vein. The remaining visualized veins of the left lower extremity are patent and free of echogenic thrombus. The veins demonstrate good compressibility with normal color flow study and spectral analysis. IMPRESSION: DVT, left posterior tibial vein. Critical results were called by Dr. Sukhdev Loo to Dr. Estelle Clinton on 11/09/2022 at 6:14 p.m. [employer] Work Phone: Radiology Study observation (narrative) [employer] Phone: US DUP LOWER EXTREMITY LEFT VENOrdered By: Sukhdev Loo on 11-09-2022 [employer] Phone: Urinalysis with Microscopico n 11-09-2022 Bacteria LM Ql (Urine sed) MANY Abnormal None Seen /HPF [employer] Bilirubin Ql (U) Negative Negative [employer] EXTENDED STAYS Clarity (U) SL CLOUDY Clear [facility] Color (U) Yellow Straw/Yellow [facility] Epithelial cells LM.HPF (Urine sed) [#/Area] MODERATE /HPF [facility] Glucose Test strip (U) [Mass/Vol] Negative Negative mg/dL [facility] Hemoglobin Ql (U) Negative Negative [facility] Interpretation and review of laboratory results Abnormal [facility] Ketones (U) [Mass/Vol] TRACE Abnormal Negative mg/dL [facility] Leukocyte esterase Test strip Ql (U) Negative Negative [facility] Nitrite Ql (U) Negative Negative [facility] pH (U) 6.5 [pH] 5.0 - 9.0 [facility] Protein (U) [Mass/Vol] Negative Negative mg/dL [facility] RBC LM.HPF (Urine sed) [#/Area] NONE [facility] Specific gravity (U) [Rel density] 1.025 1.005 - 1.030 [facility] Urobilinogen Qn (U) 0.2 NINF [facility] WBC LM.HPF (Urine sed) [#/Area] 2-5 [facility] aPTT Coag (Bld) [Time]on [facility] OVon 06-29-2018 CNOV Office Visit (ALBERTAS) TYENICKI Grady ([id number]) 1990 F Date Time Provider Department 06/29/18 2:10 PM CORA CEVALLOS During your visit today, we recorded the following information about you: Cora Cevallos MD 07/01/2018 6:01 PM Signed Nicki is s/p laparoscopic cholecystectomy surgery at [facility] on 06/21/18 She states that she is [...] MG-ACETAMINOPHEN 325 MG TABLET >> Jhoan Rome LPN 06/29/2018 2:13 PM >> JHOAN ROME LPN [facility] Jun 29, 2018 2:13 PM please d/c ONDANSETRON 4 MG DISINTEGRATING TABLET >> Jhoan Rome LPN 06/29/2018 2:14 PM >> JHOAN ROME LPN [facility] Jun 29, 2018 2:14 PM please d/c MISOPROSTOL 200 MCG TABLET >> Jhoan Rome LPN 06/29/2018 2:14 PM >> JHOAN ROME LPN [facility] Jun 29, 2018 2:14 PM Please D/c Problem List As Of Date 06/29/2018 Noted Resolved PCOS (polycystic ovarian syndrome) [E28.2] INVALID FOR* Contraception [Z30.9] INVALID FOR* DVT of leg (deep venous thrombosis) [I82.409] INVALID FOR* Tobacco use disorder [F17.200] Encounter Status:Closed by MD CORA CEVALLOS on 07/01/18 Normal [facility] PROGRESSon 06-29-2018 Protein mass conc HNO ID: [id number] Author: Cora Cevallos Service: (none) Author Type: Physician Type: Progress Notes Filed: 07/01/2018 6:01 PM Note Text: Nicki is s/p laparoscopic cholecystectomy surgery at [facility] on 06/21/18 She states that she is doing well. She denies any problems. Examination: abdomen is soft and benign, wounds are well healed, no evidence of infection Impression: s/p laparoscopic cholecystectomy Plan: follow up as per needed. Patient to return to her primary physician for medical care. Normal [facility] CNOVon 06-20-2018 CNOV Office Visit (GENSWS) NICKI GAMBLE ([id number]) 1990 F Date Time Provider Department 06/20/18 3:00 PM YFN ENGLISH) GENSHUKRI During your visit today, we recorded the following information about you: Temperature Pulse Blood pressure Weight 98 degrees 80/minute 138/84 143.8 kg Height 1.753 m Yfn English PA-C 06/20/2018 4:25 PM Signed HISTORY AND PHYSICAL Nicki Grady Tye 1990 REFERRING PHYSICIAN: [facility]* CHIEF COMPLAINT: Consult (Consult gallbladder) HPI: Nicki [...] VAGINOSCOPY 08/18/2015 CURRENT MEDICATIONS: Current Outpatient Prescriptions: HYDROcodone-acetamin ophen (NORCO) 5-325 mg per tablet EVERY 4 HOURS NEEDED PRN For Pain Disp: Rfl: ondansetron orally disintegrating (ZOFRAN ODT) 4 mg disintegrating tablet EVERY 8 HOURS NEEDED PRN For Nausea Disp: Rfl: misoprostol (CYTOTEC) 200 mcg tablet 2 TABLETS PO NIGHT PRIOR TO APPOINTMENT AND REPEAT IN AM Disp: 4 tablet Rfl: 0 No current facility-administere d medications for this visit. ALLERGIES: Patient has no known allergies. 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 Social History Main Topics [...] entered by the nurse and reviewed by sd Nursing Notes: Ritu Hearn LPN 06/20/2018 4:15 [...] Neurologic: The patient denies a history of epilepsy/convulsions , denies headaches, denies head/spinal injuries, and denies [...] ?C (98 ?F), height 175.3 cm (5' 9"), weight (!) 143.8 kg (317 lb), SpO2 [...] Procedure: LAPAROSCOPIC CHOLECYSTECTOMY WITH INTRAOPERATIVE CHOLEANGIOGRAM - 43399-099 Planned antibiotic: Ancef 3gm IVPB cardiac rehabilitation program director to [place] SCDs needed - Yes [employer] Needed - Yes Diagnoses: (K80.50) Biliary colic [...] Neurologic: The patient denies a history of epilepsy/convulsions , denies headaches, denies head/spinal injuries, and denies [...] Colonoscopy: none Ritu Hearn LPN Referring Provider: [facility] [[id number]] Allergies As of Date: 06/20/2018 (No Known [...] use disorder [F17.200] Visit Notes: >> Ritu Hearn GREGORY Aldridge Jun 20, 2018 4:14 PM Status: [...] Neurologic: The patient denies a history of epilepsy/convulsions , denies headaches, denies head/spinal injuries, and denies [...] Status:Closed by YFN ENGLISH PA-C on 06/20/18 Normal [facility] PROGRESSon 06-20-2018 Protein mass conc HNO ID: [id number] Author: Yfn English (Pa) Service: (none) Author Type: Physician [employer] Type: Progress Notes Filed: 06/20/2018 4:25 PM Note Text: HISTORY AND PHYSICAL Nicki Gamble 1990 REFERRING PHYSICIAN: Deann Hydeoster Zay* CHIEF COMPLAINT: Consult (Consult gallbladder) HPI: Nicki [...] VAGINOSCOPY 08/18/2015 CURRENT MEDICATIONS: Current Outpatient Prescriptions: HYDROcodone-acetamin ophen (NORCO) 5-325 mg per tablet EVERY 4 HOURS NEEDED PRN For Pain Disp: Rfl: ondansetron orally disintegrating (ZOFRAN ODT) 4 mg disintegrating tablet EVERY 8 HOURS NEEDED PRN For Nausea Disp: Rfl: misoprostol (CYTOTEC) 200 mcg tablet 2 TABLETS PO NIGHT PRIOR TO APPOINTMENT AND REPEAT IN AM Disp: 4 tablet Rfl: 0 No current facility-administere d medications for this visit. ALLERGIES: Patient has no known allergies. 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 Social History Main Topics [...] Neurologic: The patient denies a history of epilepsy/convulsions , denies headaches, denies head/spinal injuries, and denies [...] ?C (98 ?F), height 175.3 cm (5' 9"), weight (!) 143.8 kg (317 lb), SpO2 [...] Procedure: LAPAROSCOPIC CHOLECYSTECTOMY WITH INTRAOPERATIVE CHOLEANGIOGRAM - 39501-079 Planned antibiotic: Ancef 3gm IVPB cardiac rehabilitation program director to [place] SCDs needed - Yes [employer] Needed - Yes Diagnoses: (K80.50) Biliary colic (primary encounter diagnosis) (K80.20) Gallstones (Z86.718) History of DVT (deep vein thrombosis) (E28.2) PCOS (polycystic ovarian syndrome) Yfn Enlgish PA-C Normal [facility] Vital Signs Date Time Vital Sign Value Performing Clinician Kristal downs 11-10-2022 15:45-0400 Body temperature 97.3 [degF] Jaime Richardson DO Work Phone: [employer] 11-10-2022 15:45-0400 Diastolic blood pressure 82 mm[Hg] Jaime Richardson DO Work Phone: [employer] 11-10-2022 15:45-0400 Heart rate 85 /min Jaime Richardson DO Work Phone: [employer] 11-10-2022 15:45-0400 Respiratory rate 16 /min Jaime Richardson DO Work Phone: [employer] 11-10-2022 15:45-0400 SaO2% (BldA) [Mass fraction] 96 % Jaime Richarsdon DO Work Phone: [employer] 11-10-2022 15:45-0400 Systolic blood pressure 144 mm[Hg] Jaime Richardson DO Work Phone: [employer] 11-09-2022 19:34-0400 Body height 175.3 cm Jaime Richardson DO Work Phone: [employer] 11-09-2022 19:34-0400 Body mass index (BMI) [Ratio] 59.07 kg/m2 Jaime Richardson DO Work Phone: [employer] 11-09-2022 19:34-0400 Body weight 181.44 kg Jaime Richardson DO Work Phone: [employer] Encounters Encounter Date Encounter Type Care Provider Facility Start: 07-19-2025 ambulatory SAUMYA MITCHELL [facility] Start: 12-26-2024 ambulatory Kourtney Yanira Facility :[facility] Start: 12-08-2024 End: 12-08-2024 ambulatory Kourtney Yanira Facility:[facility] Start: 12-06-2024 End: 12-06-2024 ambulatory Kourtney Yanira Facility:[facility] Start: 11-28-2024 End: 11-28-2024 ambulatory Kourtney Yanira Facility:[facility] Start: 09-12-2024 End: 09-12-2024 ambulatory Kourtney Yanira Facility:[facility] Start: 07-20-2024 End: 07-20-2024 ambulatory [facility] Start: 07-20-2024 End: 07-20-2024 Subsequent hospital visit by physician [facility] Comment on above: Pulmonary embolism w ithout acute cor pulmonale, unspecified chronicity, unspecified pulmonary embolism type (HCC) Start: 07-20-2024 Unknown SAUMYA [facility] Start: 07-22-2023 End: 07-23-2023 ambulatory SAUMYA [facility] Start: 03-26-2023 End: 03-29-2023 ambulatory CURRY DILLARD [facility] Start: 02-15-2023 End: 02-15-2023 Subsequent hospital visit by physician [facility] Comment on above: Pulmonary embolism w ithout acute cor pulmonale, unspecified chronicity, unspecified pulmonary embolism type (HCC) Start: 11-09-2022 End: 11-10-2022 Evaluation and management of inpatient Jaime Richardson DO Work Phone: [phone] Comment on above: Acute pulmonary embo lism without acute cor pulmonale, unspecified pulmonary embolism type (HCC) (Primary Dx); Acute deep vein thrombosis (DVT) of proximal vein of left lower extremity (HCC); Abnormal CT of the chest Start: 06-29-2018 End: 07-03-2018 Patient encounter procedure CORA CEVALLOS [facility] Start: 06-20-2018 End: 06-21-2018 Patient encounter procedure YFN ENGLISH (PA) [facility] Procedures Date Procedure Procedure Detail Performing Clinician Start: 07-20-2024 Blood count complete auto&auto difrntl wbc Sandra Maier MD Work Phone: Start: 02-15-2023 Clinton viper venom time diluted Sandra Maier MD Work Phone: Start: 11-10-2022 Blood count complete auto&auto difrntl wbc Frankie Dewey DO Work Phone: Start: 11-09-2022 Ct angiography chest w/contrast/noncontrast Estelle Clinton DO Work Phone: Start: 11-09-2022 Ecg routine ecg w/le ast 12 lds w/i&r Estelle Clinton DO Work Phone: Start: 11-09-2022 Comprehensive metabo lic panel Estelle Clinton DO Work Phone: Start: 11-09-2022 Urnls dip stick/tabl et reagent auto microscopy Jaime Richardson DO Work Phone: Start: 11-09-2022 Dup-scan xtr veins unilateral/limited study Kristine Arceo ANTIQUER - ETL APPLICATION DEVELOPER Start: 11-09-2022 Urine test visual color cmprsn meths Estelle Clinton DO Work Phone: Plan of Treatment Date Care Activity Detail Author Start: 07-19-2025 End: 07-19-2025 Patient encounter procedure [facility] Comment on above: LABS~Dr. Nikko Maier~ RE CURRENT VTE. 4 mo. f/u w/poss.lab s~ RECURRENT VTE. patient req. a Fri. appt. date patient has MYCHART, does not want AVS Start: 08-02-2024 Depression Screen Depression Screen [facility] Start: 08-02-2024 Hemoglobin A1c measurement A1C test (Diabetic or Prediabetic) [facility] Start: 03-18-2024 GFR test (Diabetes, CKD 3-4, OR last GFR 15-59) GFR test (Diabetes, CKD 3-4, OR last GFR 15-59) [facility] Start: 02-05-2024 COVID-19 Vaccine ( season) COVID-19 Vaccine ( season) [facility] Start: 2024 Influenza vaccination Flu vaccine (# 1) [facility] Start: 12-31-2023 Depression Screen Depression Screen [facility] Start: 12-31-2023 Lipid panel Lipids [facility] Start: 11-11-2023 GFR test (Diabetes, CKD 3-4, OR last GFR 15-59) GFR test (Diabetes, CKD 3-4, OR last GFR 15-59) [facility] Start: 04-06-2023 End: 04-06-2023 Patient encounter procedure 04/06/2023 3:30 PM EDT Office Visit [facility] [address] [place] [address] [id number] Saumya Mitchell, [address] [place] [address] [phone] : Return in about 2 months (around 04/02/2023) for diabetes. [facility] Comment on above: : Return in about 2 months (around 04/02/2023) for diabetes. Start: 04-01-2023 Hemoglobin A1c measurement A1C test (Diabetic or Prediabetic) [facility] Start: 03-18-2023 End: 03-18-2023 Patient encounter procedure [facility] Comment on above: LABS~Dr. Nikko Maier~ 4 wk. f/u w/poss.lab s~ patient req. a Fri. appt. datepatient has MYCHART, does not want AVS Start: 01-04-2023 Influenza vaccination [facility] Start: 12-30-2022 End: 12-30-2022 Patient encounter procedure 12/30/2022 Office Visit Family Medicine Saumya Mitchell, DO [address], [place] [id number] [facility] Start: 01-04-2018 Screening for malign ant neoplasm of cervix [facility] Start: 01-04-2009 Screening for malign ant neoplasm of cervix Pap smear [facility] Start: 01-04-2007 DTaP/Tdap/Td vaccine (1 - Tdap) DTaP/Tdap/Td vaccine (1 - Tdap) [facility] Start: 01-04-2007 Pneumococcal 0-49 ye ars Vaccine (1 of 2 - PCV) Pneumococcal 0-49 years Vaccine (1 of 2 - PCV) [facility] Start: 01-04-2006 Glaucoma screening Diabetic retinal exam [facility] Start: 01-04-2006 Hepatitis C screening Hepatitis C sc reen [facility] Start: 01-04-2006 Urine screening for protein Diabetic Alb to Cr ratio (uACR) test [facility] Start: 04-30-2005 Hepatitis A vaccine (2 of 2 - 2-dose series) Hepatitis A vaccine (2 of 2 - 2-dose series) [facility] Start: 02-17-2005 Hepatitis B vaccine (3 of 3 - 3-dose series) Hepatitis B vaccine (3 of 3 - 3-dose series) [facility] Start: 10-29-2004 DTaP/Tdap/Td vaccine (6 - Tdap) DTaP/Tdap/Td vaccine (6 - Tdap) [facility] Start: 01-04-2003 HIV screening HIV screen [facility] Start: 01-04-2001 Varicella vaccine (1 of 2 - 13+ 2-dose series) Varicella vaccine (1 of 2 - 13+ 2-dose series) [facility] Start: 2000 Depression Screen Depression Screen [facility] Start: 01-04-1998 Diabetic foot examination Diabetic foot exam [facility] Start: 01-04-1994 Pneumococcal 0-64 ye ars Vaccine (1 - PCV) Pneumococcal 0-64 years Vaccine (1 - PCV) [facility] Start: 01-04-1989 Varicella vaccine (1 of 2 - 2-dose childhood series) Varicella vaccine (1 of 2 - 2-dose childhood series) [facility] Start: 1988 COVID-19 Vaccine (#1) COVID-19 Vacci ne (#1) [employer] Start: 1988 Hepatitis B vaccine (1 of 3 - 3-dose series) Hepatitis B vaccine (1 of 3 - 3-dose series) [employer] [facility] End: 02-15-2023 Beta-2 GlycoProtein 1 Ab,IgG & IgM [employer] [facility] Comment on above: 1 Occurrences starti ng 02/15/2023 until 02/15/2023 End: 02-15-2023 Cardiolipin Ab IgG, IgM, IgA [employer] [facility] Comment on above: 1 Occurrences starti ng 02/15/2023 until 02/15/2023 EKG 12 Lead EKG 12 Lead ECG STAT 11/09/2022 8:14 PM EDT [employer] Phone: Oxygen therapy [[facility] Data Set] Initiate Oxygen Therapy Protocol Respiratory Care Routine Daily until discontinued starting 11/10/2022 [employer] Phone: Comment on above: Daily until disconti nued starting 11/10/2022 End: 02-15-2023 Protein S Activity [employer] Phone: Comment on above: 1 Occurrences starti ng 02/15/2023 until 02/15/2023 Payers Date Payer Category Payer Self-pay 2020 Unknown [id number] [id number] [id number] 1990 Unknown [id number] 2.16. [id number] 1990 Unknown [id number] 2.16. [id number] 1988 Unknown [id number] 2.16. [id number] 1990 Unknown [id number] 2.16. [id number] 1990 Unknown [id number] 2.16. [id number] Unknown [id number] 2.16.8 [id number] Unknown [id number] 2.16.8 [id number] Unknown [id number] 2.16.8 [id number] Unknown [id number] 2.16.8 [id number] Unknown [id number] 2.16.8 [id number] Social History Date Type Detail Facility Start: 11-10-2022 End: 08-02-2023 Tobacco smoking status AZIS Ex-smoker [employer] End: 06-06-2019 History of tobacco use Current smoker [employer] Work Phone: End: 06-06-2019 History of tobacco use Cigarette Smoker [employer] Work Phone: Start: 11-10-2022 End: 08-02-2023 Tobacco use and exposure Smokeless tobacco non-user [employer] Phone: Start: 11-09-2022 History SDOH Alcohol Frequency 1 [employer] Work Phone: Start: 11-09-2022 History SDOH Alcohol Std Drinks 0 [employer] Phone: Start: 1990 Sex Assigned At Not on file [employer] Phone: Start: 02-15-2023 End: 07-20-2024 Alcohol intake Current drinker of alcohol (finding) [employer] Start: 11-09-2022 End: 12-29-2022 History of Social function [employer] Start: 11-09-2022 End: 12-29-2022 Humiliation, Afraid, Rape, and Kick questionnaire [HARK] [employer] Within the last year , have you been afraid of your partner or ex-partner? No [employer] How often to you hav e a drink containing alcohol? Never [employer] How many standard dr inks containing alcohol do you have on a typical day? Patient does not drink [employer] (I/We) worried wheth er (my/our) food would run out before (I/we) got money to buy more. Never true [employer] Start: 02-15-2023 Alcohol Comment occasionally [employer] Start: 1990 Sex Assigned At Female [employer] Start: 12-29-2022 Gender identity Identifies as female gender (finding) [employer] Start: 12-29-2022 Sexual orientation Heterosexual (finding) [employer] Medical Equipment Procedure Code Equipment Code Equipment Origin al Text Equipment Identifier Dates Dispense suffici ent amount for once daily testing frequency plus additional to accommodate PRN testing needs with ONE TOUCH glucometer. Dispense all needed supplies to include: monitor, strips, lancing device, lancets, control solutions, alcohol swabs. [id number] Start: 01-31-2023 History of Present illness Narrative 07-20-2024 Frankie Mathis RN - 07/20/2024 3:33 PM EST Note Date & Type Note Facility 07-20-2024 History of Presen t illness Narrative Labs drawn peripherally. Dry dressing applied. Patient tolerated well. documented in this encounter [employer] History of Present illness Narrative 02-15-2023 Desirae Ac MA - 02/15/2023 8:00 AM EDT Note Date & Type Note Facility 02-15-2023 History of Presen t illness Narrative Labs drawn peripherally. Dry dressing applied. Patient tolerated well. Specimen sent to lab. documented in this encounter [employer] History of Present illness Narrative 11-10-2022 Ruth Toscano RN - 11/10/2022 6:05 PM EDMi Toscano RN - 11/10/2022 3:30 PM EDTMiladys Cornejo - 11/10/2022 3:22 PM EDTEsun Paul - 11/10/2022 10:02 AM EDT Note Date & Type Note Facility 11-10-2022 History of Present illness Narrative Patient instructed to follow up with PCP that she made previous to hospital visit. Patient is a new patient of PCP and appt was made for sometime in December. Attending aware of this and gave a refill on eliquis to make sure patient would have medication until seen by new PCP. Pulmonary notified of this as well and instructed RN to tell patient if she had problems with eliquis to call office. Patient expressed understanding during d/c instructions. All plan of care questions answered. Sound notified via perfect serve of patient not having a PCP to follow up on d/c and patient complaining of lower back pain that she would like addressed while here. CLINICAL PHARMACY NOTE: MEDS TO BEDS Total # of Prescriptions Filled: 1 The following medications were delivered to the patient: Eliquis 5mg Additional Documentation: Delivered to pt, refills sent to Aida García Pulmonology consult sent. 4 Eyes Skin Assessment NAME: Nicki Jimenez DATE OF : 1990 The patient is being assessed for Admission I agree that at least one RN has performed a thorough Head to Toe Skin Assessment on the patient. ALL assessment sites listed below have been assessed. Areas assessed by both nurses: Head, Face, Ears, Shoulders, Back, Chest, Arms, Elbows, Hands, Sacrum. Buttock, Coccyx, Ischium, Legs. Feet and Heels, and Under Medical Devices Does the Patient have a Wound? No noted wound(s) Jacques Prevention initiated by RN: No Wound Care Orders initiated by RN: No Pressure Injury (Stage 3,4, Unstageable, DTI, NWPT, and Complex wounds) if present, place Wound referral order by RN under MEDICINE TECH: No New Ostomies, if present place, Ostomy referral order under MEDICINE TECH: No Nurse 1 eSignature: SHARE this note so that the co-signing nurse can place an eSignature Nurse 2 eSignature: documented in this encounter [facility] Work Phone: Hospital course Narrative 11-10-2022 Marco Antonio Toro MD - 11/10/2022 12:14 PM EDT Note Date & Type Note Facility 11-10-2022 Hospital course Narrative Images from the original note were not included. Hospitalist Discharge Summary Patient ID: Nicki Jimenez Patient : 1990 Patient's PCP: No primary care provider on file. Admit Date: 11/09/2022 Admitting Physician: Frankie Dewey DO Discharge Date: 11/10/2022 Discharge Physician: Marco Antonio Toro MD Discharge Condition: Stable Discharge Disposition: Home History of presenting illness: 32-year-old lady past medical history of morbid obesity DVT previously on Coumadin presented due to left leg pain. Was found to have left lower extremity DVT CT of the chest obtained given Lasix complaint of chest discomfort showed concern for small embolus in the right lung but also concern for 13 mm right lower lobe nodule. She was started on weight-based Lovenox. Pulmonology was consulted for close follow-up of lung nodule. Transition to [facility] at discharge. She complained of lower back/tail bone pain but denied any trauma or fall. She mentioned that was similar kind of pain she had when she had a blood clott but she also has chronic back issues. Hospital course in brief: (Please refer to daily progress notes for a comprehensive review of the hospitalization by requesting medical records) As above Consults: IP CONSULT TO INTERNAL MEDICINE IP CONSULT TO PULMONOLOGY Discharge Diagnoses: Acute pulmonary embolism Left lower extremity DVT 13 Millimeters lung nodule right lower lobe Obesity BMI greater than 55 Discharge Instructions / Follow up: Continued appropriate risk factor modification of blood pressure, diabetes and serum lipids will remain essential to reducing risk of future atherosclerotic development Activity: activity as tolerated Significant labs: CBC: Recent Labs 11/09/22195611/10/22 0405 WBC 12.8* 8.7 RBC 4.94 4.29 HGB 13.3 11.6 HCT 42.4 37.2 MCV 85.8 86.7 RDW 13.2 13.3 PLT 435 343 BMP: Recent Labs 11/09/22195611/10/22 0405 NA 134 136 K 3.9 3.9 CL 98 102 CO2 22 21* BUN 9 8 CREATININE 0.6 0.5 LFT: Recent Labs 11/09/22195611/10/22 0405 PROT 8.9* 7.6 ALKPHOS 129* 97 ALT 46* 39* AST 42* 45* BILITOT 0.5 0.5 PT/INR: Recent Labs 11/09/221956 INR 1.2 APTT 31.4 BNP: No results for input(s): BNP in the last 72 hours. Hgb A1C: No results found for: LABA1C Folate and B12: No results found for: [id number], No results found for: FOLATE Thyroid Studies: No results found for: TSH, C9TFABH, E6OLVQO, THYROIDAB Urinalysis: Lab Results Component Value Date/Time NITRU Negative 11/09/2022 07:57 PM WBCUA 2-5 11/09/2022 07:57 PM BACTERIA MANY 11/09/2022 07:57 PM RBCUA NONE 11/09/2022 07:57 PM BLOODU Negative 11/09/2022 07:57 PM SPECGRAV 1.025 11/09/2022 07:57 PM GLUCOSEU Negative 11/09/2022 07:57 PM Imaging: CTA PULMONARY W CONTRAST Result Date: 11/09/2022 EXAMINATION: CTA OF THE CHEST 11/09/2022 10:51 pm TECHNIQUE: CTA of the chest was performed after the administration of intravenous contrast. Multiplanar reformatted images are provided for review. MIP images are provided for review. Automated exposure control, iterative reconstruction, and/or weight based adjustment of the mA/kV was utilized to reduce the radiation dose to as low as reasonably achievable. COMPARISON: None. HISTORY: ORDERING SYSTEM PROVIDED HISTORY: DVT + palpitations; concern for PE TECHNOLOGIST PROVIDED HISTORY: Reason for exam:->DVT + palpitations; concern for PE Decision Support Exception - unselect if not a suspected or confirmed emergency medical condition->Emergency Medical Condition (MA) What reading provider will be dictating this exam?->CRC FINDINGS: Pulmonary Arteries: Pulmonary arteries are suboptimally opacified for evaluation. A tiny subsegmental embolus is suspected to the right lower lobe posteromedial basilar segment. Main pulmonary artery is normal in caliber. Mediastinum: No evidence of mediastinal lymphadenopathy. The heart and pericardium demonstrate no acute abnormality. There is no acute abnormality of the thoracic aorta. Lungs/pleura: Macrolobulated 13 mm noncalcified pulmonary nodule of the posterolateral basilar segment right lower lobe. The lungs are without acute process. No focal consolidation or pulmonary edema. No evidence of pleural effusion or pneumothorax. Upper Abdomen: Limited images of the upper abdomen are unremarkable. Soft Tissues/Bones: No acute bone or soft tissue abnormality. 1. Tiny subsegmental embolus is suspected to the right lower lobe posteromedial basilar segment. Limitation secondary to suboptimal contrast bolus. No large central pulmonary embolus. No heart strain. 2. Macrolobulated 13 mm noncalcified pulmonary nodule of the posterolateral basilar segment right lower lobe. Likely benign in this age group, however, PET-CT evaluation and/or tissue sampling should be considered versus short-term follow-up in the setting of concomitant DVT. I contacted Dr. Richardson with the report via telephone at 1150 pm. RECOMMENDATIONS: Careful clinical correlation and follow up recommended. Consider PET-CT evaluation and/or tissue sampling for 13 mm noncalcified pulmonary nodule, especially in the setting of concomitant DVT. Alternatively, short-term follow-up in 3-6 months may suffice on the basis of carcinoma risk factors. US DUP LOWER EXTREMITY LEFT SVETA Result Date: 11/09/2022 EXAMINATION: DUPLEX VENOUS ULTRASOUND OF THE LEFT LOWER EXTREMITY 11/09/2022 5:29 pm TECHNIQUE: Duplex ultrasound using B-mode/hess scaled imaging and Doppler spectral analysis and color flow was obtained of the deep venous structures of the left lower extremity. COMPARISON: None. HISTORY: ORDERING SYSTEM PROVIDED HISTORY: Discomfort TECHNOLOGIST PROVIDED HISTORY: Reason for exam:->Discomfort What reading provider will be dictating this exam?->CRC FINDINGS: Please note the study is limited due to the patient's body habitus. There is thrombus in the left posterior tibial vein. The remaining visualized veins of the left lower extremity are patent and free of echogenic thrombus. The veins demonstrate good compressibility with normal color flow study and spectral analysis. DVT, left posterior tibial vein. Critical results were called by Dr. Sukhdev Loo to Dr. Estelle Clinton on 11/09/2022 at 6:14 p.m. Discharge Medications: Medication List START taking these medications * apixaban 5 MG Tabs tablet Commonly known as: ELIQUIS Take 2 tablets by mouth 2 times daily for 14 doses * apixaban 5 MG Tabs tablet Commonly known as: ELIQUIS Take 1 tablet by mouth 2 times daily Start taking on: November 18, 2022 * This list has 2 medication(s) that are the same as other medications prescribed for you. Read the directions carefully, and ask your doctor or other care provider to review them with you. Where to Get Your Medications These medications were sent to [facility] [address] - P [phone] - F [phone] [facility] [address], [facility] [address] apixaban 5 MG Tabs tablet apixaban 5 MG Tabs tablet Time Spent on discharge is more than 35 minutes in the examination, evaluation, counseling and review of medications and discharge plan. +++++++++++++++++++++++++++++++++ ++++++++++++++++ Marco Antonio Toro MD [facility] Physician - Hospitalist [facility] - [place], [place] +++++++++++++++++++++++++++++++++ ++++++++++++++++ NOTE: This report was transcribed using voice recognition software. Every effort was made to ensure accuracy; however, inadvertent computerized director of manufacturing operations errors may be present. documented in this encounter [employer]: Evaluation note Note Date & Type Note Facility Evaluation note Diagnosis Pulmonary embolism without acute cor pulmonale, unspecified chronicity, unspecified pulmonary embolism type (HCC)- Primary Acute pulmonary embolism without acute cor pulmonale, unspecified pulmonary embolism type (HCC) Acute deep vein thrombosis (DVT) of proximal vein of left lower extremity (HCC) Abnormal CT of the chest Nonspecific (abnormal) findings on radiological and other examination of other intrathoracic organs documented in this encounter [employer]: Evaluation note Note Date & Type Note Facility Evaluation note Diagnosis Pulmonary embolism without acute cor pulmonale, unspecified chronicity, unspecified pulmonary embolism type (HCC) documented in this encounter [employer] Evaluation note Note Date & Type Note Facility Evaluation note Diagnosis Pulmonary embolism without acute cor pulmonale, unspecified chronicity, unspecified pulmonary embolism type (HCC) documented in this encounter [employer] Summary Purpose Family History No Family History Records FoundNo Family History Records FoundNo Family History Records FoundNo Family History Records Found Advance Directives No Advanced Directives Records FoundLatest Code Status on File Code Status Date Activated Date Inactivated Comments Full Code 11/10/2022 2:40 AM Latest Code Status on File Code Status Date Activated Date Inactivated Comments Full Code 11/10/2022 2:40 AM 11/10/2022 9:04 PM Date Activated Date Inactivated Comments 11/10/2022 2:40 AM 11/10/2022 9:04 PM Additional Source Comments INFORMATION SOURCE (unrecogn ized section and content) DATE CREATED AUTHOR 07/16/2018 [facility] DATE CREATED AUTHOR AUTHOR'S ORGANIZ ATION 08/03/2023 [facility] DATE CREATED AUTHOR AUTHOR'S ORGANIZ ATION 07/22/2024 [facility] DATE CREATED AUTHOR AUTHOR'S ORGANIZ ATION 12/26/2024 [facility] Reason for Visit (unrecogniz ed section and content) Reason Comments Leg Swelling LLE, hx blood clot, may have another one, "lower back and ass pain" - thinners, 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 Ordered Prescriptions (unrec ognized section and content) Prescription Sig Dispensed Refills Start Date End Da te apixaban (ELIQUIS) 5 MG TABS tablet Take 1 tablet by mouth 2 times daily 180 tablet 0 11/18/2022 02/16/2023 apixaban (ELIQUIS) 5 MG TABS tablet Take 2 tablets by mouth 2 times daily for 14 doses 28 tablet 0 11/10/2022 11/17/2022 apixaban (ELIQUIS) 5 MG TABS tablet Take 1 tablet by mouth 2 times daily 60 tablet 0 11/18/2022 11/10/2022 Scheduled Active and Recently Administ ered Medications (unrecognized section and content) Medication Order 11/08/2022 11/09/2022 11/10/2022 apixaban (ELIQUIS) tablet 10 mg(Linked Group 1) 10 mg, Oral, 2 TIMES DAILY, 14 doses, First dose on Tue11/10/22 at 2000, Last dose on Tue11/17/22 at 0900, Indication of Use: Treatment-DVT/PE, ANTICOAGULANT 1999 (Due) apixaban (ELIQUIS) tablet 5 mg(Linked Group 1) 5 mg, Oral, 2 TIMES DAILY, First dose on Tue11/17/22 at 2100, Until Discontinued, Indication of Use: Treatment-DVT/PE, ANTICOAGULANT enoxaparin (LOVENOX) 180 mg injection (COMPLETED) 180 mg (1 mg/kg 181.4 kg), SubCUTAneous, ONCE, 1 dose, On Tue11/10/22 at 0000, Indication of Use: Treatment-DVT/PE, Administer by deep subCUTAneous injection with pt lying down. Alternate injection sites on abdominal wall. Do not rub site after injection. Check with provider prior to any invasive procedure. 0000 (Given - Provid er: Essence Mcgill RN) enoxaparin (LOVENOX) 180 mg injection (CANCELED) 180 mg (1 mg/kg 181.4 kg), SubCUTAneous, EVERY 12 HOURS, First dose on Tue11/10/22 at 0245, Until Discontinued, Indication of Use: Treatment-DVT/PE, Administer by deep subCUTAneous injection with pt lying down. Alternate injection sites on abdominal wall. Do not rub site after injection. Check with provider prior to any invasive procedure. 240 (Not Given - Provider: Essence Mcgill RN - Reason: Order parameters not met - Comment: last admin @0000)823 (Given - Provider: Ruth Toscano RN) LORazepam (ATIVAN) injection 1 mg (COMPLETED) 1 mg, IntraVENous, ONCE, 1 dose, On Tue11/09/22 at 1945, Immediately prior to intravenous use, lorazepam Injection must be diluted with an equal volume of compatible solution (NS or D5W). 2014 (Given - Provider: Essence Mcgill RN) orphenadrine (NORFLEX) injection 60 mg (COMPLETED) 60 mg, IntraVENous, ONCE, 1 dose, On Tue11/09/22 at 1945 2014 (Given - Provider: Essence Mcgill RN) sodium chloride flush 0.9 % injection 10 mL 10 mL, IntraVENous, EVERY 12 HOURS SCHEDULED (2 times per day), First dose on Tue11/10/22 at 0900, Until Discontinued 823 (Given - Provid er: Ruth Toscano RN)2100 (Due) PRN Medication Order 11/08/2022 11/09/2022 11/10/2022 0.9 % sodium chloride infusion IntraVENous, at 5-250 mL/hr, PRN, if patient receiving piggyback infusions and maintenance fluids are not ordered OR KVO fluids to protect IV site / prevent frequent line interruptions/ long duration, Starting on Tue11/10/22 at 0240, For piggyback infusion, administer at same rate as piggyback for a total of 25 mL. Enter 25 mL into dose field and piggyback rate into rate field of order. If piggyback is infusing at a rate less than 100 mL/hr, enter 25 mL into dose field and 100 mL/hr into rate field of order. For KVO fluids, enter rate of 20 mL/hr or less into rate field of order. acetaminophen (TYLENOL) suppository 650 mg(Linked Group 2) 650 mg, Rectal, EVERY 6 HOURS PRN, Starting on Tue11/10/22 at 0240, Until Discontinued, Pain Mild (1-3), Fever, For temp greater than 100.4 F (38 C), Administer if oral route cannot be used. acetaminophen (TYLENOL) tablet 650 mg(Linked Group 2) 650 mg, Oral, EVERY 6 HOURS PRN, Starting on Tue11/10/22 at 0240, Until Discontinued, Pain Mild (1-3), Fever, For temp greater than 100.4 F (38 C), Maximum dose of acetaminophen is 4000 mg from all sources in 24 hours. iopamidol (ISOVUE-370) 76 % injection 70 mL (COMPLETED) 70 mL, IntraVENous, IMG ONCE PRN, 1 dose, Starting on Tue11/09/22 at 2252, Until Tue11/09/22 at 2258, Other 225 (Given - Provider: Beronica Palma) ondansetron (ZOFRAN) injection 4 mg(Linked Group 3) 4 mg, IntraVENous, EVERY 6 HOURS PRN, Starting on Tue11/10/22 at 0240, Until Discontinued, Nausea, Vomiting, Administer if oral route cannot be used. polyethylene glycol (GLYCOLAX) packet 17 g 17 g, Oral, DAILY PRN, Starting on Tue11/10/22 at 0240, Until Discontinued, Constipation, First line therapy for constipation promethazine (PHENERGAN) tablet 12.5 mg(Linked Group 3) 12.5 mg, Oral, EVERY 6 HOURS PRN, Starting on Tue11/10/22 at 0240, Until Discontinued, Nausea, Vomiting sodium chloride flush 0.9 % injection 10 mL 10 mL, IntraVENous, PRN, 1 dose, Starting on Tue11/09/22 at 2252, Until Discontinued, Line Care, once sodium chloride flush 0.9 % injection 10 mL 10 mL, IntraVENous, PRN, Starting on Tue11/10/22 at 0240, Until Discontinued, Line Care, After every IV line use Linked Groups Order Group 1: apixaban (ELIQUIS) tablet 10 mgJump to med 10 mg, Oral, 2 TIMES DAILY, 14 doses, First dose on Tue11/10/22 at 2000, Last dose on Tue11/17/22 at 0900
Indication of Use: Treatment-DVT/PE
ANTICOAGULANT
Followed by apixaban (ELIQUIS) tablet 5 mgJump to med 5 mg, Oral, 2 TIMES DAILY, First dose on Tue11/17/22 at 2100, Until Discontinued
Indication of Use: Treatment-DVT/PE
ANTICOAGULANT
Group 2: acetaminophen (TYLENOL) tablet 650 mgJump to med 650 mg, Oral, EVERY 6 HOURS PRN, Starting on Tue11/10/22 at 0240, Until Discontinued, Pain Mild (1-3), Fever, For temp greater than 100.4 F (38 C)
Maximum dose of acetaminophen is 4000 mg from all sources in 24 hours.
Or acetaminophen (TYLENOL) suppository 650 mgJump to med 650 mg, Rectal, EVERY 6 HOURS PRN, Starting on Tue11/10/22 at 0240, Until Discontinued, Pain Mild (1-3), Fever, For temp greater than 100.4 F (38 C)
Administer if oral route cannot be used.
Group 3: promethazine (PHENERGAN) tablet 12.5 mgJump to med 12.5 mg, Oral, EVERY 6 HOURS PRN, Starting on Tue11/10/22 at 0240, Until Discontinued, Nausea, Vomiting Or ondansetron (ZOFRAN) injection 4 mgJump to med 4 mg, IntraVENous, EVERY 6 HOURS PRN, Starting on Tue11/10/22 at 0240, Until Discontinued, Nausea, Vomiting
Administer if oral route cannot be used.
Care Teams (unrecognized sec tion and content) Club Lounge Attendant Relationship Specialty Start Date End Date Saumya Mitchell DO [address] [place] [address] PCP - General Internal Medicine 12/30/22 Club Lounge Attendant Relationship Specialty Start Date End Date Saumya Mitchell DO PCP - General Internal Medicine 12/30/22 FOR RECORDS PERTAINING TO PATIENTS WHO ARE OR HAVE BEEN ENROLLED IN A CHEMICAL DEPENDENCY/SUBSTANCEABUSE PROGRAM, SOME INFORMATION MAY BE OMITTED. This clinical summary was aggregated from multiple sources. Caution should be exercised in using it in the provision of clinical care. This summary normalizes information from multiple sources, and as a consequence, information in this document may materially change the coding, format and clinical context of patient data. In addition, data may be omitted in some cases. CLINICAL DECISIONS SHOULD BE BASED ON THE PRIMARY CLINICAL RECORDS. [facility]. provides no warranty or guarantee of the accuracy or completeness of information in this document.
== END | disposition home or self-care (01) ==
LOC: CT 06:09
PROVIDERS: PCP Internal Medicine; Referring Provider Internal Medicine Medical Oncology; Visit Provider Internal Medicine Medical Oncology
DX: R91.1 Solitary pulmonary nodule (principal)
CPT/HCPCS: 71260; Q9967

== ENCOUNTER → 2025-02-22 | Outpatient (CLI) | payer OTHER, SELFPAY ==
--- NOTE | 2025-02-22 15:03 | ECHOCS_ITS ---
Reason For Study Reason For Study: MURMUR Procedure This was a 2D Doppler, Color Flow transthoracic echocardiogram. The study was technically difficult. Contrast injection was performed. Exam performed in department. Left Ventricle Normal LV size. Left ventricular systolic function is normal. The left ventricular ejection fraction is 55 %. No regional wall motion abnormalities noted. Right Ventricle Normal RV size. Normal systolic function. Atria Normal left atrium. Normal right atrium. Mitral Valve Normal mitral valve. Tricuspid Valve Normal tricuspid valve. Mild (1+) tricuspid valve insufficiency. Pulmonary artery systolic pressure is 33 mmHg. Aortic Valve Normal aortic valve. Pulmonic Valve The pulmonic valve is not well visualized. Great Vessels Normal aortic root. The pulmonary artery is normal size. Inferior vena cava collapse with respiration. Pericardium/Pleural No pericardial effusion. Medication 22 gauge I.V. with prn adaptor inserted into left arm. Diluted definity 2ml given slow IV push to enhance endocardial definition. MMode/2D Measurements & Calculations LVIDd: 5.3 cm IVSd: 1.1 cm LVOT diam: 2.2 cm LVIDs: 3.0 cm LVPWd: 1.1 cm RVDd: 4.5 cm FS: 43.0 % LVOT area: 3.9 cm2 asc Aorta Diam: 3.2 cm LAV(MOD-bp): 63.8 ml LVAd ap4: 29.7 cm2 LAV(MOD-bp) Indexed: 23.1 ml/m2 LVLd ap4: 8.1 cm LAV(MOD-sp2): 73.4 ml EDV(MOD-sp4): 90.5 ml LAV(MOD-sp4): 53.6 ml EDV(sp4-el): 92.5 ml LVAs ap4: 18.8 cm2 LVLs ap4: 7.0 cm ESV(MOD-sp4): 40.7 ml ESV(sp4-el): 42.6 ml EF(MOD-sp4): 55.0 % EF(sp4-el): 54.0 % LVAd ap2: 32.8 cm2 SV(MOD-sp4): 49.8 ml SV(MOD-sp2): 61.4 ml LVLd ap2: 8.5 cm SI(MOD-sp4): 18.1 ml/m2 SI(MOD-sp2): 22.3 ml/m2 EDV(MOD-sp2): 104.8 ml EDV(sp2-el): 107.1 ml LVAs ap2: 19.8 cm2 LVLs ap2: 7.8 cm ESV(MOD-sp2): 43.3 ml ESV(sp2-el): 42.8 ml EF(MOD-sp2): 58.7 % SV(sp4-el): 49.9 ml Ao sinus diam: 2.[address] Junction: 2.4 cm LA dimension(2D): 4.3 cm LA A4 area: 19.0 cm2 RA A4 area: 13.9 cm2 TAPSE: 2.4 cm Time Measurements MV dec time: 0.24 sec Doppler Measurements & Calculations MV E max foreign: 107.7 cm/sec Lat Peak E' Foreign: 15.4 cm/sec Med Peak E' Foreign: 15.4 cm/sec MV A max foreign: 77.1 cm/sec E/E' lat: 7.0 E/E' med: 7.0 MV E/A: 1.4 MV dec slope: 456.2 cm/sec2 Ao V2 max: 182.5 cm/sec LV V1 max: 146.7 cm/sec Ao max P.3 mmHg LV V1 max P.6 mmHg Ao V2 mean: 118.0 cm/sec LV V1 mean P.0 mmHg Ao mean P.6 mmHg LV V1 mean: 120.0 cm/sec Ao V2 VTI: 36.0 cm LV V1 VTI: 28.8 cm AV (velocity ratio): 0.80 STORMY(I,D): 3.1 cm2 STORMY(V,D): 3.1 cm2 SV(LVOT): 112.4 ml PA V2 max: 151.2 cm/sec TR max foreign: 272.8 cm/sec TR max P.8 mmHg ECHO/Echo Complete W/ Contrast Interpretation Summary Normal LV size. Left ventricular systolic function is normal. The left ventricular ejection fraction is 55 %. Pulmonary artery systolic pressure is 33 mmHg. Ordering Physician: Kourtney Doyle Referring Physician: Kourtney Doyle Performed By: Luly Baptiste RDCS
--- OUTSIDE RECORDS SUMMARY | 2025-02-22 15:45 | XMS RPT_ITS | CCD ---
Author Organization [facility] Care Team Providers Care Thread Trimmer Name Role Phone BOZENA ENGLISH (OSIRIS) Attending Unavailable CORA CEVALLOS Attending Unavailable Unavailable Primary Care Provider Unavailabl e KwasnickLucia ross DO Primary Care Provider LUCIA MITCHELL Primary Care Unavailabl e KWASNICKLUCIA Ross Primary Care Unavailabl e LUCIA MITCHELL Referring Unavailabl e CURRY DILLARD Attending Unavailable CURRY DILLARD Referring Unavailable LUCIA MITCHELL Primary Care Unavailabl e Kwasnicka Lucia HEBERT Primary Care Provider U navailable LUCIA MITCHELL Primary Care Unavailabl e KWASNICKA, LUCIA N Primary Care Unavailabl e Yanira, Kourtney Referring Unavailable Zeeland, Kourtney Primary Care Unavailable Zeeland, Okurtney Attending Unavailable Jhoan Ramirez Attending Unavailable Jhoan Ramirez Referring Unavailable Zeeland, Kourtney Primary Care Unavailable Yanira, Kourtney Attending Unavailable Care Physician, No Primary Primary Care Unava ilable Care Physician, No Primary Referring Unava ilable Jhoan Ramirez Attending Unavailable Zeeland, Kourtney Referring Unavailable Yanira, Kourtney Primary Care Unavailable Yanira, Kourtney Referring Unavailable Yanira, Kourtney Primary Care Unavailable Jhoan Ramirez Attending Unavailable Zeeland, Kourtney Primary Care Unavailable Yanira, Kourtney Attending Unavailable Care Physician, No Primary Referring Unava ilable Yanira, Kourtney Attending Unavailable Care Physician, No Primary Primary Care Unava ilable Care Physician, No Primary Referring Unava ilable Yanira, Kourtney Referring Unavailable Yanira, Kourtney Primary Care Unavailable Yanira, Kourtney Attending Unavailable Jhoan Ramirez Attending Unavailable Jhoan Ramirez Referring Unavailable Zeeland, Kourtney Primary Care Unavailable Medications Current Medications [...] (NORFLEX) injection 60 mg polyethylene glycol [id number] [id number] mg powder for oral solution (1 source) [...] Date Documented Da te Episodic/Chronic Anxiety disorders (3 sources) Anxiety; Translations: [Anxiety disorder, unspecified] Onset: 12-30-2022 12-30-2022 Chronic Diabetes mellitus without complication (3 sources) Type 2 diabetes mellitus without complication; Translations: [Type 2 diabetes mellitus without complications] Onset: 01-31-2023 01-31-2023 Chronic Essential hypertension (2 sources) Essential hypertension; Translations: [Essential (primary) hypertension] Onset: 12-30-2022 12-30-2022 Chronic Heart valve disorders (1 source) Cardiac murmur, unspecified; Translations: [Cardiac murmur, unspecified] Onset: 02-20-2025 Episodic Mood disorders (1 source) Mood disorders; Translations: [Depression, unspecified] Onset: 01-10-2025 Other endocrine disorders (1 source) Polycystic ovary syndrome; Translations: [Polycystic ovarian syndrome] Onset: 06-08-2010 08-02-2023 Chronic Other lower respiratory disease (3 sources) Solitary pulmonary nodule; Translations: [Solitary pulmonary nodule] Onset: 03-26-2023 Episodic Other screening for suspected conditions (not mental disorders or infectious disease) (1 source) CT of chest abnormal; Translations: [Abnormal findings on diagnostic imaging of other specified body structures] Chronic Phlebitis; thrombophlebitis and thromboembolism (3 sources) Acute deep vein thrombosis of lower limb; Translations: [Acute embolism and thrombosis of unspecified deep veins of left proximal lower extremity] Onset: 01-01-2025 Episodic Past or Other Problems Problem Classification Problem Date Documented Da te Episodic/Chronic Pulmonary heart disease (9 sources) Acute pulmonary embolism; Translations: [Other pulmonary embolism without acute cor pulmonale] Onset: 11-10-2022 Episodic Results Test Name Value Interpretation Reference Range Facility Internal Medicine Office Vis raj 01-09-2025 Internal Medicine Office Visit [facility] [address] [place] [address] A [place], [place] [id number] OFFICE VISIT Date of Service: 01/10/25 MR#: [id number] Acct: [id number] Name: NICKI JIMENEZ Rep #: [id number] : 1990 Provider: Dr. Kourtney garcia MD Age/Sex: 35/F Location: [facility] Status: Signed Intake Vital Signs 11/28/24 07:35 01/01/25 15:58 01/10/25 07:30 Height 5 ft 9 in 5 ft 9 in 5 ft 9 in Weight: 396 lb BMI 58.4 BP 122/82 H Blood Pressure Location Lt brachial Position Sitting Respiration 16 Pulse 81 Pulse Source Monitor Temp 99.2 F H Temp Source Temporal Pulse Oximetry (%) 99 Oxygen Delivery Method room air Intake Visit Reasons: 6 wk FU Interventional Radiology Tech Required: No Is patient in pain?: No Allergies No Known Allergies Allergy (Verified 01/10/25 07:22) Medications ???Medication ???Instructions ???Recorded ???Confirmed ???Type citalopram 20 mg tablet 20 mg PO QDAY #90 tabs 11/28/24 Rx lisinopril 10 mg tablet 10 mg PO QDAY #90 tabs 11/28/24 Rx metformin 500 mg tablet 500 mg PO BID #180 tabs 12/10/24 0 01/10/25 Rx cholecalciferol (vitamin D3) 25 25 mcg PO QDAY 01/01/25 01/10/25 H istory mcg (1,000 unit) capsule Hair, skin, and nails with biotin PO DAILY 01/10/25 History apixaban 5 mg tablet (Eliquis) 2.5 mg PO BID 01/10/25 01/10/25 Hi story cariprazine 1.5 mg capsule 1.5 mg PO QDAY #90 caps 01/10/25 0 01/10/25 Rx (Vraylar) tirzepatide 2.5 mg/0.5 mL 2.5 mg (0.5 mL) subcut QWEEK #2 mL 01/10/25 01/10/25 Rx subcutaneous pen injector (Sarah) Nurse's Note: Pt states she felt like vraylar was helping, but has been out for a few weeks due to the pharmacy only giving her a 15 day supply. Despite calling in 30. Pt concerned she also has adhd, Advised we do not dx or treat, and would need a referral to physciatry to obtain dx. Pt states that she was told that pender counselor would not be able to see her as frequently as she typically likes. Is looking into someone in the [facility]. Pt states for the past few weeks she has also had some fluid buildup and swelling of BLE. She wonders if it is due to HSN supplement. [facility] Medical History Diabetes Surgical History Hx of cholecystectomy Family History Father Gastric ulcer Hypertension Mother Diabetes Grandfather Diabetes Grandmother CVA (cerebral vascular accident) Glaucoma Social History household members: spouse current occupational status: employed current occupation: [employer] Smoking Status: Former smoker quit date: 06/06/19 pack-years: 5 alcohol intake: never substance use type: does not use do you feel safe at home: Yes Questionnaire [facility]-9 BMS Over the last 2 weeks, how [...] some way: not at all Total score: 14 If you checked off any problems, how difficult have these problems made it for you to do your work, take care of things at home, or get along with other people?: somewhat difficult Source: Developed by Drs. Frankie Quintana, Casi Cordova, Darrin Tinajero and colleagues, with an educational abel from [employer]. IGLESIA-7 BMS IGLESIA-7 Feeling nervous, anxious, or on edge: 2 = More than half the days Not being able to stop or control worryin = Nearly every day Worrying too much about different things: 3 = Nearly every day Trouble relaxin = Nearly every day Being so restless that it is hard to sit still: 3 = Nearly every day Becoming easily annoyed or irritable: 1 = Several days Feeling afraid as if something awful might happen: 3 = Nearly every day Total IGLESIA-7 score (0-4 normal; 5-9 mild; 10-14 moderate; 15-21 severe): 18 Source: Developed by Drs. Frankie Quintana, Casi Cordova, Darrin Tinajero and colleagues, with (more content not included)... Normal [facility] D-Dimer Quantitative (DVT/PE )on 01-01-2025 D-DIMER QUANT < 0.27 Low 0.27-0.49 [facility] Comment on above: Result Comment: NORM AL D-Dimer level (<0.50) indicates no DVT or PE. Performed By: #### L [id number] #### [facility] Laboratory [address] [place], [place], [address] Oncology Visit Reporton 12-05 Oncology Visit Report [facility] [address] [place] [address] OFFICE VISIT Date of Service: 01/01/25 1555 MR#: [id number] Acct: [id number] Name: NICKI JIMENEZ Rep #: [id number] : 1990 From: Jhoan Ramirez MD Age/Sex: 34/F Location: [facility] Status: Signed HPI Subjective Date of Service 01/01/25 Chief Complaint F/u for DVT management/CT result. 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 She has the first diagnosis in 2011 when she was on OCPs and also a smoker. She was treated with Coumadin but does not know how long. She had swelling of the left leg in November 2022 and went to the ER in [place]. Doppler study on 11/09/2022 showed left posterior tibial vein DVT. CTA on 11/07/2027 showed tiny subsegmental embolus in the right lower lobe with a 13 mm nodule in the right lower lobe. She was started on Lovenox then changed to Eliquis, currently on Eliquis 5 mg twice daily. She moved to the area and was referred for further evaluation. Denied family history of clotting and had stopped smoking cigarettes. She had CT chest done and comes for follow up. [facility] Medical History Diabetes Surgical History Hx of cholecystectomy Family History Father Gastric ulcer Hypertension Mother Diabetes Grandfather Diabetes Grandmother CVA (cerebral vascular accident) Glaucoma Social History household members: spouse current occupational status: employed current occupation: [employer] Smoking Status: Former smoker quit date: 06/06/19 pack-years: 5 alcohol intake: never substance use type: does not use do you feel safe at home: Yes Intake Vital Signs 12/06/24 13:08 01/01/25 15:58 Height 5 ft 9 in 5 ft 9 in Weight: 178.262 kg BMI 58.0 BP 143/81 H Blood Pressure Location Lt brachial Position Sitting Respiration 18 Pulse 83 Pulse Source Monitor Temp 98.4 F Temperature Source Temporal Artery Pulse Oximetry (%) 97 Oxygen Delivery Method room air Intake Accompanied by: Self Is patient in pain?: No Allergies No Known Allergies Allergy (Verified 01/01/25 16:03) Medications ???Medication ???Instructions ???Recorded ???Confirmed ???Type apixaban 5 mg tablet (Eliquis) 5 mg PO BID 09/12/24 01/01/25 Hist ory semaglutide 0.25 mg or 0.5 mg (2 0.5 mg subcut QWEEK 09/12/2401/01 History mg/1.5 mL) subcutaneous pen injector (Ozempic) citalopram 20 mg tablet 20 mg PO QDAY #90 tabs 11/28/24 Rx lisinopril 10 mg tablet 10 mg PO QDAY #90 tabs 11/28/24 Rx metformin 500 mg tablet 500 mg PO BID #180 tabs 12/10/24 0 01/01/25 Rx cariprazine 1.5 mg capsule 1.5 mg PO QDAY #30 caps 12/19/24 0 01/01/25 Rx (Vraylar) Hair, skin, and nails with biotin PO 01/01/25 01/01/25 History cholecalciferol (vitamin D3) 25 25 mcg PO QDAY 01/01/25 01/01/25 H istory mcg (1,000 unit) capsule Central Venous Access Central Venous Access: No 12/26/[address]/Chest WITH Contrast IMPRESSION: Stable right lung scarring and right lower lobe nodular density. No acute findings and no concerning lung nodule. Coding Level of Care Code Off vis,est,level 4 Exam Problem Focused Diagnoses Recurrent deep vein thrombosis (DVT) I82.409 Lung nodule R91.1 Assessment and Plan Assessment and Plan (1) Recurrent deep vein thrombosis (DVT): Status: Chronic Comment: Discussed Recurrent distal DVT, management with Prophylactic dose of Eliquis after acute treatment. She has taken Eliquis since November 2022. Pt want to continue. She can change to Eliquis 2.5mg PO bid. Plan: To do Eliquis 2.5mg bid. Check D-dimers. Can follow up with PCP and referred if new problems arise. (2) Lung nodule: Status: Chronic Comment: Found on CT done on 11/09/2022. CT chest on 12/26/2024 reviewed, showed R Lower lobe nodule which was stable for 2 yrs Plan: To do observation, no need for further imaging. 01/01/25 1634 Date [facility]: Date (if applicable) CC: Dr. Kourtney Doyle MD Normal [facility] Chest WITH Contraston 2024 Chest WITH Contrast [facility] Imaging Services [address] [place], [place] [id number] Chest WITH Contrast MR#: [id number] Acct: [id number] Name: NICKI JIMENEZ Rep #: [id number] : 1990 F 34 From: Nikolas Gallardo MD PCP: Dr. Kourtney Doyle MD Status: REG CLI Study: Chest WITH Contrast Date of Exam: 12/26/24 Exam# [id number] Ordering Dr: Jhoan Ramirez MD PROCEDURE: CHEST WITH CONTRAST 12/26/2024 REASON FOR EXAM: LUNG NODULE TECHNIQUE: CHEST WITH CONTRAST Coronal and Sagittal reconstruction series were provided. CONTRAST: Isovue 370 VOLUME: 90 mL One or more dose reduction techniques were used (e.g., Automated exposure control, adjustment of the mA and/or kV according to patient size, use of iterative reconstruction technique). RADIATION DOSE SUMMARY: CTDlvol: 50 mGy DLP: 1028 mGycm COMPARISON: 03/26/2023 FINDINGS: Unremarkable base of neck. Mild bilateral axillary adenopathy, usually reactive. Normal esophagus. Normal heart size. No vascular pathology. No acute chest wall findings. Diffuse hepatic steatosis. No acute upper abdominal findings. Central airways are patent. On the right, there is linear scar/atelectasis in the medial aspect of the upper lobe and middle lobe. Otherwise, well inflated lungs. No consolidation, effusion, or pneumothorax. On the right, series 601, image 123, there is an oval-shaped lower lobe nodular density measuring 0.8 x 1.4 cm, stable and felt to be benign. CT/Chest WITH Contrast IMPRESSION: Stable right lung scarring and right lower lobe nodular density. No acute findings and no concerning lung nodule. Reading Location: [place] [address] CC: Dr. Kourtney Doyle MD; Dr. Jhoan Ramirez MD [employer]: Signed Normal [facility] CBC W/Diff, Automatedon 07-0 Absolute Lymph 2.12 X10 3/uL Normal 0.83-4.51 [facility] Comment on above: Performed By: #### L 100.0100, L501.9985, L500.4050, L500.4100, L506.1001 #### [facility] [address] [place], [address] Absolute Neut 7.1 X10 3/uL Normal 2.0-7.7 [facility] Comment on above: Performed By: #### L 100.0100, L501.9985, L500.4050, L500.4100, L506.1001 #### [facility] [address] [place], [address] Basophils/100 WBC (Bld) 0.4 % Normal 0-1 [facility] Comment on above: Performed By: #### L 100.0100, L501.9985, L500.4050, L500.4100, L506.1001 #### [facility] [address] [place], [address] Eosinophils/100 WBC (Bld) 1.1 % Normal 0-5 [facility] Comment on above: Performed By: #### L 100.0100, L501.9985, L500.4050, L500.4100, L506.1001 #### [facility] [address] [place], [address] Erythrocyte distribution width (RBC) [Ratio] 13.5 % Normal 11.6-14.6 [facility] Comment on above: Performed By: #### L 100.0100, L501.9985, L500.4050, L500.4100, L506.1001 #### [facility] [address] [place], [address] Hematocrit (Bld) [Volume fraction] 40.6 % Normal 37-47 [facility] Comment on above: Performed By: #### L 100.0100, L501.9985, L500.4050, L500.4100, L506.1001 #### [facility] [address] [place], [address] Hemoglobin (Bld) [Mass/Vol] 12.8 g/dL Normal 12.0-15.0 [facility] Comment on above: Performed By: #### L 100.0100, L501.9985, L500.4050, L500.4100, L506.1001 #### [facility] [address] [facility] [place], [address] IG% 0.500 Normal 0.0-0.9 [facility] Comment on above: Result Comment: IG% - Immature Granulocytes (promyelocytes, myelocytes and metamyelocytes) > 1% indicates that a LEFT SHIFT is Present. Performed By: #### L 100.0100, L501.9985, L500.4050, L500.4100, L506.1001 #### [facility] [address] [place], [address] Lymphocytes/100 WBC (Bld) 21.2 % Normal 19-41 [facility] Comment on above: Performed By: #### L 100.0100, L501.9985, L500.4050, L500.4100, L506.1001 #### [facility] [address] [place], [address] MCH (RBC) [Entitic mass] 27.0 pg Normal 27.0-32.0 [facility] Comment on above: Performed By: #### L 100.0100, L501.9985, L500.4050, L500.4100, L506.1001 #### [facility] [address] [place], [address] MCHC (RBC) [Mass/Vol] 31.5 g/dL Low 32-36 [facility] Comment on above: Performed By: #### L 100.0100, L501.9985, L500.4050, L500.4100, L506.1001 #### [facility] [address] [place], [address] MCV (RBC) [Entitic vol] 85.7 fL Normal 81-99 [facility] Comment on above: Performed By: #### L 100.0100, L501.9985, L500.4050, L500.4100, L506.1001 #### [facility] [address] [place], [address] Monocytes/100 WBC (Bld) 5.5 % Normal 0-10 [facility] Comment on above: Performed By: #### L 100.0100, L501.9985, L500.4050, L500.4100, L506.1001 #### [facility] [address] [place], [address] Neutrophils/100 WBC (Bld) 71.3 % High 47-70 [facility] Comment on above: Performed By: #### L 100.0100, L501.9985, L500.4050, L500.4100, L506.1001 #### [facility] [address] [place], [address] Nucleated RBC (Bld) [#/Vol] 0 10*3/uL Normal 0-5 [facility] Comment on above: Performed By: #### L 100.0100, L501.9985, L500.4050, L500.4100, L506.1001 #### [facility] [address] [place], [address] Platelet mean volume (Bld) [Entitic vol] 9.5 fL Normal 6.2-12.0 [facility] Comment on above: Performed By: #### L 100.0100, L501.9985, L500.4050, L500.4100, L506.1001 #### [facility] [address] [place], [address] Platelets (Bld) [#/Vol] 386 10*3/uL Normal 150-450 [facility] Comment on above: Performed By: #### L 100.0100, L501.9985, L500.4050, L500.4100, L506.1001 #### [facility] [address] [place], [address] RBC (Bld) [#/Vol] 4.74 10*6/uL Normal 4.2-5.4 [facility] Comment on above: Performed By: #### L 100.0100, L501.9985, L500.4050, L500.4100, L506.1001 #### [facility] [address] [place], [address] RDW SD 41.8 fl Normal 35.1-43.9 [facility] Comment on above: Performed By: #### L 100.0100, L501.9985, L500.4050, L500.4100, L506.1001 #### [facility] [address] [place], [address] WBC (Bld) [#/Vol] 10.0 10*3/uL Normal 4.4-11.0 [facility] Comment on above: Performed By: #### L 100.0100, L501.9985, L500.4050, L500.4100, L506.1001 #### [facility] [address] [place], [address] Comprehensive Metabolic Prof [facility] 12-08-2024 Albumin [Mass/Vol] 4.0 g/dL Normal 3.5-5.0 [facility] Comment on above: Performed By: #### L 100.0100, L501.9985, L500.4050, L500.4100, L506.1001 #### [facility] [address] [place], [address] Albumin/Globulin [Mass ratio] 1.0 {ratio} Normal 0.9-2.4 [facility] Comment on above: Performed By: #### L 100.0100, L501.9985, L500.4050, L500.4100, L506.1001 #### [facility] [address] [place], [address] ALK PHOS 118 U/L High 35-104 [facility] Comment on above: Performed By: #### L 100.0100, L501.9985, L500.4050, L500.4100, L506.1001 #### [facility] [address] [place], [address] ALT [Catalytic activity/Vol] 54 U/L High <=34 [facility] Comment on above: Performed By: #### L 100.0100, L501.9985, L500.4050, L500.4100, L506.1001 #### [facility] [address] [place], [address] AST [Catalytic activity/Vol] 40 U/L High <=31 [facility] Comment on above: Performed By: #### L 100.0100, L501.9985, L500.4050, L500.4100, L506.1001 #### [facility] [address] [place], [address] Bilirubin [Mass/Vol] 0.52 mg/dL Normal 0.00-1.30 [facility] Comment on above: Performed By: #### L 100.0100, L501.9985, L500.4050, L500.4100, L506.1001 #### [facility] [address] [place], [address] BUN/CRE 12.0 RATIO Normal 10-20 [facility] Comment on above: Performed By: #### L 100.0100, L501.9985, L500.4050, L500.4100, L506.1001 #### [facility] [address] [place], [address] Calcium [Mass/Vol] 9.3 mg/dL Normal 7.6-11.0 [facility] Comment on above: Performed By: #### L 100.0100, L501.9985, L500.4050, L500.4100, L506.1001 #### [facility] [address] [place], [address] Chloride [Moles/Vol] 98 mmol/L Normal 98-108 [facility] Comment on above: Performed By: #### L 100.0100, L501.9985, L500.4050, L500.4100, L506.1001 #### [facility] [address] [place], [address] CO2 [Moles/Vol] 24.6 mmol/L Normal 21.0-32.0 [facility] Comment on above: Performed By: #### L 100.0100, L501.9985, L500.4050, L500.4100, L506.1001 #### [facility] [address] [place], [address] Creatinine [Mass/Vol] 0.56 mg/dL Low 0.70-1.20 [facility] Comment on above: Performed By: #### L 100.0100, L501.9985, L500.4050, L500.4100, L506.1001 #### [facility] [address] [place], [address] GAP 12 Normal 5-15 [facility] Comment on above: Performed By: #### L 100.0100, L501.9985, L500.4050, L500.4100, L506.1001 #### [facility] [address] [place], [address] GFR/1.73 sq M.predicted among non-blacks MDRD (S/P/Bld) [Vol rate/Area] 121 mL/min/{1.73_m2} Normal >60 [facility] Comment on above: Result Comment: mL/m in/1.73m2 CKD-EPI Creatinine Equation (2020) Performed By: #### L 100.0100, L501.9985, L500.4050, L500.4100, L506.1001 #### [facility] [address] [place], [address] Globulin (S) [Mass/Vol] 4.1 g/dL Normal 2.2-4.2 [facility] Comment on above: Performed By: #### L 100.0100, L501.9985, L500.4050, L500.4100, L506.1001 #### [facility] [address] [place], [address] Glucose [Mass/Vol] 181 mg/dL High 70-99 [facility] Comment on above: Performed By: #### L 100.0100, L501.9985, L500.4050, L500.4100, L506.1001 #### [facility] [address] [place], [address] Potassium [Moles/Vol] 4.2 mmol/L Normal 3.3-5.1 [facility] Comment on above: Performed By: #### L 100.0100, L501.9985, L500.4050, L500.4100, L506.1001 #### [facility] [address] [place], [address] Sodium [Moles/Vol] 135 mmol/L Normal 133-145 [facility] Comment on above: Performed By: #### L 100.0100, L501.9985, L500.4050, L500.4100, L506.1001 #### [facility] [address] [place], [address] T PROT 8.1 g/dL Normal 5.9-8.4 [facility] Comment on above: Performed By: #### L 100.0100, L501.9985, L500.4050, L500.4100, L506.1001 #### [facility] [address] [place], [address] Urea nitrogen [Mass/Vol] 7 mg/dL Normal 4-19 [facility] Comment on above: Performed By: #### L 100.0100, L501.9985, L500.4050, L500.4100, L506.1001 #### [facility] [address] [place], [address] D-Dimer Quantitative (DVT/PE )on 12-08-2024 D-DIMER QUANT 0.48 FEU/ug/m Normal 0.27-0.49 [facility] Comment on above: Result Comment: NORM AL D-Dimer level (<0.50) indicates no DVT or PE. Performed By: #### L 300.8000 ####[facility] [address] [place], [address] Hemoglobin A1con 12-08-2024 HbA1c (Bld) [Mass fraction] 9.7 % High <=5.6 [facility] Comment on above: Result Comment: Norm al < 5.7 % Prediabetic 5.7 - 6.4 % Diabetic >or= 6.5 % Please note range changes. Performed By: #### L 100.0100, L501.9985, L500.4050, L500.4100, L506.1001 #### [facility] [address] [place], [address] Lipid Profileon 12-08-2024 CHOL:HDL 2.96 Normal [facility] Comment on above: Performed By: #### L 100.0100, L501.9985, L500.4050, L500.4100, L506.1001 #### [facility] [address] [place], [address] Cholesterol [Mass/Vol] 146 mg/dL Normal <=200 [facility] Comment on above: Result Comment: Chol esterol level, Desirable <200 mg/dL Borderline high cholesterol 200-239 mg/dL High cholesterol >=240 mg/dL Recommendations of the NCEP Adult Treatment Panel for the following risk-cutoff thresholds for the [place] population. Performed By: #### L 100.0100, L501.9985, L500.4050, L500.4100, L506.1001 #### [facility] [address] [place], [address] Cholesterol in HDL [Mass/Vol] 49 mg/dL Normal [facility] Comment on above: Result Comment: Moira onal Cholesterol Education Program (NCEP) guidelines: <40 mg/dL: Low HDL-cholesterol (major risk factor for CHD) >= 60 mg/dL: High HDL-cholesterol (negative risk factor for CHD) HDL-cholesterol is affected by a number of factors, e.g. smoking, exercise, hormones, sex and age. Performed By: #### L 100.0100, L501.9985, L500.4050, L500.4100, L506.1001 #### [facility] [address] [place], [address] Cholesterol in LDL [Mass/Vol] 80 mg/dL Normal [facility] Comment on above: Result Comment: Bord zmpdra=241-773 mg/dL Higher Dirw=362 mg/dL or greater Performed By: #### L 100.0100, L501.9985, L500.4050, L500.4100, L506.1001 #### [facility] [address] [place], [address] Cholesterol in VLDL [Mass/Vol] 17 mg/dL Normal 5-40 [facility] Comment on above: Performed By: #### L 100.0100, L501.9985, L500.4050, L500.4100, L506.1001 #### [facility] [address] [place], [address] Triglyceride [Mass/Vol] 85 mg/dL Normal [facility] Comment on above: Result Comment: The drugs N-Acetylcysteine and Metamizole may falsely depress this assay. Normal range: <150 mg/dL Borderline High: 150-199 mg/dL High: 200-499 mg/dL Very High: >500 mg/dL Performed By: #### L 100.0100, L501.9985, L500.4050, L500.4100, L506.1001 #### [facility] [address] [place], [address] Vitamin D,25 Hydroxyon 12-08 Vitamin D 25-OH 17.9 ng/mL Low 30-100 [facility] Comment on above: Result Comment: Dawna min D Status Deficiency: <20 ng/mL (50nmol/L) Insufficiency: 20-30 ng/mL (50-75 nmol/L) Sufficiency: 30-100 ng/mL (75-250 nmol/L) Toxicity: >100 ng/mL (>250 nmol/L) Performed By: #### L 100.0100, L501.9985, L500.4050, L500.4100, L506.1001 #### [facility] [address] [place], [address] Oncology Visit Reporton 0 Oncology Visit Report [facility] [address] [place] [address] OFFICE VISIT Date of Service: 12/06/24 1305 MR#: [id number] Acct: [id number] Name: NICKI JMIENEZ Rep #: [id number] : 1990 From: Jhoan Ramirez MD Age/Sex: 34/F Location: [facility] Status: Signed HPI Subjective Date of Service [...] 2022 and went to the ER in [place]. Doppler study on 11/09/2022 showed left posterior [...] Denies family history, has stop smoking cigarettes. [facility] Medical History Diabetes Surgical History Hx of cholecystectomy Family History Father Gastric ulcer Hypertension Mother Diabetes Grandfather Diabetes Grandmother CVA (cerebral vascular accident) Glaucoma Social History household members: spouse current occupational status: employed current occupation: [employer] Smoking Status: Former smoker quit date: 06/06/19 [...] heart s (more content not included)... Normal [facility] Internal Medicine Office Vis itocali 11-27-2024 Internal Medicine Office Visit [facility] [address] [place], [place] [address] OFFICE VISIT Date of Service: 11/28/24 MR#: [id number] Acct: [id number] Name: NICKI JIMENEZ Rep #: [id number] : 1990 Provider: Dr. Kourtney garcia MD Age/Sex: 34/F Location: [facility] Status: Signed Intake Vital Signs 09/12/24 08:12 11/28/24 07:35 Height 5 ft 9 in 5 ft 9 in Weight: 389 lb BMI 57.4 BP 142/80 H Blood Pressure Location Lt radial Position Sitting Respiration 16 Pulse 87 Pulse Source Monitor Temp 99 F Temp Source Temporal Pulse Oximetry (%) 98 Oxygen Delivery Method room air Intake Visit Reasons: NEEDS RESCHEDULED Interventional Radiology Tech Required: No Is patient in pain?: No [...] QDAY #30 caps 11/28/24 0 11/28/24 Rx (Vraylar) citalopram 20 mg tablet 20 mg PO QDAY #90 tabs 11/28/24 Rx lisinopril 10 mg tablet 10 mg PO QDAY #90 tabs 11/28/24 Rx Nurse's Note: Pt states she had some nausea and vomiting yesterday but is fine today, she thinks it was her period as she has been having issues lately w/ periods. Patient states that she never called [facility] but she is not certain if they reached out to her as her voicemail was acting up. Number given and patient took pamphlet for the portal. Pt had to call off work yesterday due to this. Pt needs 90 days to mail order for maintence meds besides the semaglutide specifically she recieved a letter about citalopram. [facility] Medical History Diabetes Surgical History Hx of cholecystectomy Family History Father Gastric ulcer Hypertension Mother Diabetes Grandfather Diabetes Grandmother CVA (cerebral vascular accident) Glaucoma Social History household members: spouse current occupational status: employed current occupation: [employer] Smoking Status: Former smoker quit date: 06/06/19 [...] and colleagues, with an educational abel from [employer]. IGLESIA-7 BMS IGLESIA-7 Feeling nervous, anxious, or [...] and colleagues, with an educational abel from [employer] HPI HPI Details: NICKI JIMENEZ, is a 34 F who presents to the office today for a follow up. She never did her blood work as previously ordered. She is due for a pap s (more content not included)... Normal [facility] Internal Medicine Office Vis raj 09-11-2024 Internal Medicine Office Visit [facility] [place] [address] OFFICE VISIT Date of Service: 09/12/24 MR#: [id number] Acct: [id number] Name: NICKI JIMENEZ Rep #: [id number] : 1990 Provider: Dr. 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 IGLESIA-7 BMS IGLESIA-7 Feeling nervous, anxious, or [...] 11 Source: Developed by Drs. Frankie Quintana, Casi Cordova, Darrin Tinajero and colleagues, with an educational abel from [employer]. HPI HPI Chief Complaint: LEAF CONDITIONER ESTABLISH CARE Details: NICKI GAMBLE, is a [...] the metformin (more content not included)... Normal [facility] CBC with Auto Differentialon 07-20-2024 Basophils (Bld) [#/Vol] 0.02 10*3/uL [facility] Basophils/100 WBC (Bld) 0 % 0.0 - 2.0 % [facility] Eosinophils (Bld) [#/Vol] 0.12 10*3/uL [facility] Eosinophils/100 WBC (Bld) 1 % 0 - 6 % [facility] Erythrocyte distribution width (RBC) [Ratio] 12.6 % 11.5 - 15.0 % [facility] Hematocrit (Bld) [Volume fraction] 43.1 % 34.0 - 48.0 % [facility] Hemoglobin (Bld) [Mass/Vol] 13.9 g/dL 11.5 - 15.5 g/dL [facility] Immature granulocytes (Bld) [#/Vol] 0.04 10*3/uL [facility] Immature granulocytes/100 WBC (Bld) 0 % 0.0 - 5.0 % [facility] Lymphocytes/100 WBC (Bld) 24 % 20.0 - 42.0 % [facility] Lymphocytes/100 WBC (Bld) 2.35 % [facility] MCH (RBC) [Entitic mass] 27.2 pg 26.0 - 35.0 pg [facility] MCHC (RBC) [Mass/Vol] 32.3 g/dL 32.0 - 34.5 g/dL [facility] MCV (RBC) [Entitic vol] 84.3 fL 80.0 - 99.9 fL [facility] Monocytes/100 WBC (Bld) 7 % 2.0 - 12.0 % [facility] Monocytes/100 WBC (Bld) 0.69 % [facility] Neutrophils/100 WBC (Bld) 67 % 43.0 - 80.0 % [facility] Platelet mean volume (Bld) [Entitic vol] 10.1 fL 7.0 - 12.0 fL [facility] Platelets (Bld) [#/Vol] 377 10*3/uL [facility] RBC (Bld) [#/Vol] 5.11 10*6/uL 3.50 - 5.5 0 m/uL [facility] Segmented neutrophils/100 WBC (Bld) 6.65 % [facility] WBC other (Bld) [#/Vol] 9.9 [facility] CBC with Diffon 07-20-2024 Abs. Basophil 0.02 k/uL Normal 0.00-0.20 [facility] Comment on above: Performed By: #### C BCWD #### [address] [address] [employer] Operator: Arie Thornton MD Abs.Imm.Granulocyte 0.04 k/uL Normal 0.00-0.58 [facility] Comment on above: Performed By: #### C BCWD #### [address] [address] [employer] Operator: Arie Thornton MD Abs.Neutrophil (Seg) 6.65 k/uL Normal 1.80-7.30 [facility] Comment on above: Performed By: #### C JESUSWD #### [address] [address] [employer] Operator: Arie Thornton MD Basophils/100 WBC (Bld) 0 % Normal 0.0-2.0 [facility] Comment on above: Performed By: #### C BCWD #### [place] [address] [employer] Operator: Arie Thornton MD Eosinophils (Bld) [#/Vol] 0.12 10*3/uL Normal 0.05-0.50 [facility] Comment on above: Performed By: #### C BCWD #### [place] [address] [employer] Operator: Arie Thornton MD Eosinophils/100 WBC (Bld) 1 % Normal 0-6 [facility] Comment on above: Performed By: #### C BCWD #### [place] [address] [employer] Operator: Arie Thornton MD Erythrocyte distribution width (RBC) [Ratio] 12.6 % Normal 11.5-15.0 [facility] Comment on above: Performed By: #### C BCWD #### [place] [address] [employer] Operator: Arie Thornton MD Hematocrit (Bld) [Volume fraction] 43.1 % Normal 34.0-48.0 [facility] Comment on above: Performed By: #### C BCWD #### [place] [address] [employer] Operator: Arie Thornton MD Hemoglobin (Bld) [Mass/Vol] 13.9 g/dL Normal 11.5-15.5 [facility] Comment on above: Performed By: #### C BCWD #### [address] [address] [employer] Operator: Arie Thornton MD Immature granulocytes/100 WBC (Bld) 0 % Normal 0.0-5.0 [facility] Comment on above: Performed By: #### C BCWD #### [address] [address] [employer] Operator: Arie Thornton MD Lymphocytes (Bld) [#/Vol] 2.35 10*3/uL Normal 1.50-4.00 [facility] Comment on above: Performed By: #### C BCWD #### [address] [address] [employer] Operator: Arie Thornton MD Lymphocytes/100 WBC (Bld) 24 % Normal 20.0-42.0 [facility] Comment on above: Performed By: #### C BCWD #### [place] [address] [employer] Operator: Arie Thornton MD MCH (RBC) [Entitic mass] 27.2 pg Normal 26.0-35.0 [facility] Comment on above: Performed By: #### C BCWD #### [address] [address] [employer] Operator: Arie Thornton MD MCHC (RBC) [Mass/Vol] 32.3 g/dL Normal 32.0-34.5 [facility] Comment on above: Performed By: #### C BCWD #### [address] [address] [employer] Operator: Arie Thornton MD MCV (RBC) [Entitic vol] 84.3 fL Normal 80.0-99.9 [facility] Comment on above: Performed By: #### C BCWD #### [address] [address] [employer] Operator: Arie Thornton MD Monocytes (Bld) [#/Vol] 0.69 10*3/uL Normal 0.10-0.95 [facility] Comment on above: Performed By: #### C BCWD #### [address] [place] [address] [employer] Operator: Arie Thornton MD Monocytes/100 WBC (Bld) 7 % Normal 2.0-12.0 [facility] Comment on above: Performed By: #### C BCWD #### [address] [address] [employer] Operator: Arie Thornton MD Neutrophil (Seg) 67 % Normal 43.0-80.0 [facility] Comment on above: Performed By: #### C BCWD #### [address] [address] [employer] Operator: Arie Thornton MD Platelet mean volume (Bld) [Entitic vol] 10.1 fL Normal 7.0-12.0 [facility] Comment on above: Performed By: #### C BCWD #### [address] [address] [employer] Operator: Arie Thornton MD Platelets (Bld) [#/Vol] 377 10*3/uL Normal 130-450 [facility] Comment on above: Performed By: #### C BCWD #### [address] [address] [employer] Operator: Arie Thornton MD RBC (Bld) [#/Vol] 5.11 10*6/uL Normal 3.50-5.50 [facility] Comment on above: Performed By: #### C BCWD #### [address] [address] [employer] Operator: Arie Thornton MD WBC (Bld) [#/Vol] 9.9 10*3/uL Normal 4.5-11.5 [facility] Comment on above: Performed By: #### C BCWD #### [facility] [address] [place] [address] [employer] Operator: Arie Thornton MD Antithrombin 3 Activityon Antithrombin actual/normal Chromogenic method (PPP) [Rel catalytic activity/Vol] 82 % Low 83 - 121 % [facility] Interpretation and review of laboratory results Abnormal [facility] Dilute [place] Venom Viper T imeon 02-15-2023 Dilute Viper Venom Time Positive Abnormal NEGATIVE [facility] Comment on above: THIS IS A CORRECTED RESULT Lupus Anticoag DRVVT - LLA1 is a screening test and is not diagnostic for lupus anticoagulant. If the result is POSITIVE, follow-up testing for definitive identification would include: Lupus Anticoagulant Reflexive Panel. Ordered in [facility] as: [id number] Comment: [facility] test [id number] Lupus Anticoagulant Reflexive Panel CORRECTED ON 02/15 AT 1144: PREVIOUSLY REPORTED NEGATIVE Lupus Anticoag DRVVT LLA1 is a screening test and is not diagnostic for lupus anticoagulant. If the result is POSITIVE, follow up testing for definitive identification would include: Lupus Anticoagulant Reflexive Panel. Ordered in [facility] as: [id number] Comment: [facility] test [id number] Lupus Anticoagulant Reflexive Panel Interpretation and review of laboratory results Abnormal [facility] No Panel Informationon 02-15 [facility] Protein C Functionalon 02-15 Protein C Activity 108 % 68 - 165 % [facility] Factor V Mutationon 01-06-20 23 F 5 SPECIMEN Whole Blood Normal [facility] Comment on above: Performed By: #### A PTMUT, AF5MUT #### [facility] [address] [place] [address] [employer] Operator: Derek Roth MD FACTOR 5 MUTATION Negative Normal [facility] Comment on above: Result Comment: (NOT E) Indication for testing: Assess genetic risk for thrombosis. NEGATIVE: The factor V Leiden variant, c.1601G>A; p.[id number], was not detected. This does not exclude [...] function in the F5 gene variant c.1601G>A (p.[id number]). Legacy nomenclature: [id number] (1691G>A) CLINICAL SENSITIVITY: 20-50 percent of individuals with an isolated VTE have the FVL variant. METHODOLOGY: Polymerase chain reaction and fluorescence monitoring. ANALYTICAL SENSITIVITY AND SPECIFICITY: 99 percent. LIMITATIONS: Diagnostic errors can occur due to rare sequence variations. F5 gene mutations, other than p.Aff965Wyf, will not be detected. This test was developed and its performance characteristics determined by [facility]. It has not been cleared or approved by the US Food and Drug Administration. This test was performed in a CLIA certified laboratory and is intended for clinical purposes. Counseling and informed consent are recommended for genetic testing. Consent forms are available online. Performed By: [facility] [address] [place] [address] Real Estate Loan Officer: Christoph Jimenez MD, PhD CLIA Number: [id number] Performed By: #### A PTMUT, AF5MUT #### [facility] [address] [place] [address] [employer] Operator: Derek Roth MD PT Mutation [id number] 01-06-20 23 PT [id number] VARIANT Negative Normal [facility] Comment on above: Result Comment: (NOT E) Indication for testing: Assess genetic risk for thrombosis. NEGATIVE: The Factor II, prothrombin S06035B mutation, was not detected. Other causes of [...] Curtis, Ph.D. BACKGROUND INFORMATION: Prothrombin (F2) c.*97G>A (G00387B) Pathogenic Variant CHARACTERISTICS: The Factor II, c.*97G>A (A72051Z) pathogenic variant is a common genetic risk [...] CAUSE: Homozygosity or heterozygosity for F2 c.*97G>A (S77036M). PATHOGENIC VARIANT TESTED: F2 c.*97G>A (M05420J). CLINICAL SENSITIVITY FOR VENOUS THROMBOSIS: Approximately 10 percent. METHODOLOGY: Polymerase chain reaction and fluorescence monitoring. ANALYTICAL SENSITIVITY AND SPECIFICITY: 99 percent. LIMITATIONS: Diagnostic errors can occur due to rare sequence variations. F2 gene variants, other than c.*97G>A (I98036Y), will not be detected. This test was developed and its performance characteristics determined by [facility]. It has not been cleared or approved by the US Food and Drug Administration. This test was performed in a CLIA certified laboratory and is intended for clinical purposes. Counseling and informed consent are recommended for genetic testing. Consent forms are available online. Performed By: [facility] [address] [place] [address] [employer] Estate Loan Officer: Christoph Jimenez MD, PhD CLIA Number: [id number] Performed By: #### A PTMUT, AF5MUT #### [place] [address] [employer] Operator: Derek Roth MD PT PCR SPECIMEN Whole Blood Normal [facility] Comment on above: Performed By: #### A PTMUT, AF5MUT #### [place] [address] [employer] Operator: Derek Roth MD Antithrombin III Amrit 12-31 Antithrombin III Act 80 % Low 83-121 [facility] Comment on above: Performed By: #### A T3A, TSH, LIPR #### [address] [place] [address] [employer] Operator: Arie Thornton MD Hemoglobin A1Con 12-30-2022 HbA1c (Bld) [Mass fraction] 9.7 % High 4.0-5.6 [facility] Comment on above: Performed By: #### G LYHGB #### [address] [place] [address] [employer] Operator: Arie Thornton MD Lipid Profileon 12-30-2022 Cholesterol [Mass/Vol] 153 mg/dL Normal <200 [facility] Comment on above: Performed By: #### A T3A, TSH, LIPR #### [address] [place] [address] [employer] Operator: Arie Thornton MD Cholesterol in HDL [Mass/Vol] 47 mg/dL Normal >40 [facility] Comment on above: Performed By: #### A T3A, TSH, LIPR #### [address] [address] [employer] Operator: Arie Thornton MD Cholesterol in LDL [Mass/Vol] 91 mg/dL Normal <100 [facility] Comment on above: Performed By: #### A T3A, TSH, LIPR #### [place] [address] [employer] Operator: Arie Thornton MD Cholesterol in VLDL [Mass/Vol] 15 mg/dL Normal [facility] Comment on above: Result Comment: No n ormal range established. Performed By: #### A T3A, TSH, LIPR #### [place] [address] [employer] Operator: Arie Thornton MD Triglyceride [Mass/Vol] 75 mg/dL Normal <150 [facility] Comment on above: Performed By: #### A T3A, TSH, LIPR #### [place] [address] [employer] Operator: Arie Thornton MD Thyroid Stim. Horm.on 2022 Thyroid Stim. Horm. 3.46 uIU/mL Normal 0.27-4.20 [facility] Comment on above: Performed By: #### A T3A, TSH, LIPR #### [address] [address] [employer] Operator: Arie Thornton MD CBC with Auto Differentialon 11-10-2022 Basophils (Bld) [#/Vol] 0.04 10*3/uL [facility] Basophils/100 WBC (Bld) 0.5 % 0.0 - 2.0 % [facility] Eosinophils (Bld) [#/Vol] 0.09 10*3/uL [facility] Eosinophils/100 WBC (Bld) 1.0 % 0.0 - 6.0 % [facility] Erythrocyte distribution width (RBC) [Ratio] 13.3 fL 11.5 - 15.0 fL [facility] Hematocrit (Bld) [Volume fraction] 37.2 % 34.0 - 48.0 % [facility] Hemoglobin (Bld) [Mass/Vol] 11.6 g/dL 11.5 - 15.5 g/dL [facility] Immature granulocytes (Bld) [#/Vol] 0.02 10*3/uL E9/L [facility] Immature granulocytes/100 WBC (Bld) 0.2 % 0.0 - 5.0 % [facility] Interpretation and review of laboratory results Abnormal [facility] Lymphocytes (Bld) [#/Vol] 2.64 10*3/uL [facility] Lymphocytes/100 WBC (Bld) 30.3 % 20.0 - 42.0 % [facility] MCH (RBC) [Entitic mass] 27.0 pg 26.0 - 35.0 pg [facility] MCHC (RBC) [Mass/Vol] 31.2 % Low 32.0 - 34.5 % [facility] MCV (RBC) [Entitic vol] 86.7 fL 80.0 - 99.9 fL [facility] Monocytes (Bld) [#/Vol] 0.50 10*3/uL [facility] Monocytes/100 WBC (Bld) 5.7 % 2.0 - 12.0 % [facility] Neutrophils (Bld) [#/Vol] 5.43 10*3/uL [facility] Platelet mean volume (Bld) [Entitic vol] 10.0 fL 7.0 - 12.0 fL [facility] Platelets (Bld) [#/Vol] 343 10*3/uL [facility] RBC (Bld) [#/Vol] 4.29 10*6/uL [facility] Segmented neutrophils/100 WBC (Bld) 62.3 % 43.0 - 80.0 % [facility] WBC (Bld) [#/Vol] 8.7 10*3/uL [facility] Comprehensive metabolic 2000 panelon 11-10-2022 Albumin [Mass/Vol] 3.6 g/dL 3.5 - 5.2 g/dL [facility] ALP [Catalytic activity/Vol] 97 U/L 35 - 104 U/L [facility] ALT [Catalytic activity/Vol] 39 U/L High 0 - 32 U/L [facility] Anion gap [Moles/Vol] 13 mmol/L 7 - 16 mmol/L [facility] AST [Catalytic activity/Vol] 45 U/L High 0 - 31 U/L [facility] Comment on above: Specimen is slightly Hemolyzed. Result may be artificially increased. Bilirubin [Mass/Vol] 0.5 mg/dL 0.0 - 1 .2 mg/dL [facility] Calcium [Mass/Vol] 8.6 mg/dL 8.6 - 10. 2 mg/dL [facility] Chloride [Moles/Vol] 102 mmol/L 98 - 10 7 mmol/L [facility] CO2 [Moles/Vol] 21 mmol/L Low 22 - 29 mmol/L [facility] Creatinine [Mass/Vol] 0.5 mg/dL 0.5 - 1.0 mg/dL [facility] GFR/1.73 sq M.predicted among non-blacks MDRD (S/P/Bld) [Vol rate/Area] mL/min/1.73 60 - PINF mL/min/1.73 [facility] Comment on above: Pediatric calculator link https://www.kidney.org/professionals/kdoqi/gfr_calculatorped [...] 175 mg/dL High 74 - 99 mg/dL [facility] Interpretation and review of laboratory results Abnormal [facility] Potassium [Moles/Vol] 3.9 mmol/L 3.5 - 5.0 mmol/L [facility] Protein [Mass/Vol] 7.6 g/dL 6.4 - 8.3 g/dL [facility] Sodium [Moles/Vol] 136 mmol/L 132 - 146 mmol/L [facility] Urea nitrogen [Mass/Vol] 8 mg/dL 6 - 20 mg/dL [facility] APTTon 11-09-2022 aPTT Coag (Bld) [Time] 31.4 s [facility] Brain Natriuretic Peptideon 11-09-2022 Natriuretic peptide B (Bld) [Mass/Vol] 43 pg/mL 0 - 125 pg/mL [facility] CBC with Auto Differentialon 11-09-2022 Basophils (Bld) [#/Vol] 0.04 10*3/uL [facility] Basophils/100 WBC (Bld) 0.3 % 0.0 - 2.0 % [facility] Eosinophils (Bld) [#/Vol] 0.11 10*3/uL [facility] Eosinophils/100 WBC (Bld) 0.9 % 0.0 - 6.0 % [facility] Erythrocyte distribution width (RBC) [Ratio] 13.2 fL 11.5 - 15.0 fL [facility] Hematocrit (Bld) [Volume fraction] 42.4 % 34.0 - 48.0 % [facility] Hemoglobin (Bld) [Mass/Vol] 13.3 g/dL 11.5 - 15.5 g/dL [facility] Immature granulocytes (Bld) [#/Vol] 0.06 10*3/uL E9/L [facility] Immature granulocytes/100 WBC (Bld) 0.5 % 0.0 - 5.0 % [facility] Interpretation and review of laboratory results Abnormal [facility] Lymphocytes (Bld) [#/Vol] 3.30 10*3/uL [facility] Lymphocytes/100 WBC (Bld) 25.7 % 20.0 - 42.0 % [facility] MCH (RBC) [Entitic mass] 26.9 pg 26.0 - 35.0 pg [facility] MCHC (RBC) [Mass/Vol] 31.4 % Low 32.0 - 34.5 % [facility] MCV (RBC) [Entitic vol] 85.8 fL 80.0 - 99.9 fL [facility] Monocytes (Bld) [#/Vol] 0.70 10*3/uL [facility] Monocytes/100 WBC (Bld) 5.5 % 2.0 - 12.0 % [facility] Neutrophils (Bld) [#/Vol] 8.61 10*3/uL High [facility] Platelet mean volume (Bld) [Entitic vol] 9.9 fL 7.0 - 12.0 fL [facility] Platelets (Bld) [#/Vol] 435 10*3/uL [facility] RBC (Bld) [#/Vol] 4.94 10*6/uL [facility] Segmented neutrophils/100 WBC (Bld) 67.1 % 43.0 - 80.0 % [facility] WBC (Bld) [#/Vol] 12.8 10*3/uL High [facility] S [facility] CTA PULMONARY W CONTRASTon 0 [...] on the basis of carcinoma risk factors. [facility] EXAMINATION: CTA OF THE CHEST 11/09/2022 [...] No acute bone or soft tissue abnormality. [facility] Troy Ramires MD - 11/09/2022 EXAMINATION: [...] on the basis of carcinoma risk factors. [employer] Phone: Radiology Study observation (narrative) [employer] Phone: CTA PULMONARY W CONTRASTOrde red By: Troy Ramires on 11-09-2022 [employer] Phone: Comprehensive metabolic 2000 panelon 11-09-2022 Albumin [Mass/Vol] 4.5 g/dL 3.5 - 5.2 g/dL [employer] ALP [Catalytic activity/Vol] 129 U/L High 35 - 104 U/L [facility] ALT [Catalytic activity/Vol] 46 U/L High 0 - 32 U/L [facility] Anion gap [Moles/Vol] 14 mmol/L 7 - 16 mmol/L [facility] AST [Catalytic activity/Vol] 42 U/L High 0 - 31 U/L [facility] Bilirubin [Mass/Vol] 0.5 mg/dL 0.0 - 1 .2 mg/dL [facility] Calcium [Mass/Vol] 9.5 mg/dL 8.6 - 10. 2 mg/dL [facility] Chloride [Moles/Vol] 98 mmol/L 98 - 10 7 mmol/L [facility] CO2 [Moles/Vol] 22 mmol/L 22 - 29 mmol/L [facility] Creatinine [Mass/Vol] 0.6 mg/dL 0.5 - 1.0 mg/dL [facility] GFR/1.73 sq M.predicted among non-blacks MDRD (S/P/Bld) [Vol rate/Area] mL/min/1.73 60 - PINF mL/min/1.73 [facility] Comment on above: Pediatric calculator link https://www.kidney.org/professionals/kdoqi/gfr_calculatorped [...] 167 mg/dL High 74 - 99 mg/dL [facility] Interpretation and review of laboratory results Abnormal [facility] Potassium [Moles/Vol] 3.9 mmol/L 3.5 - 5.0 mmol/L [facility] Protein [Mass/Vol] 8.9 g/dL High 6.4 - 8.3 g/dL [facility] Sodium [Moles/Vol] 134 mmol/L 132 - 146 mmol/L [facility] Urea nitrogen [Mass/Vol] 9 mg/dL 6 - 20 mg/dL [facility] No Panel Informationon 11-09 [facility] POC Urine QualOrde red By: Essence Mcgill on 11-09-2022 Beta HCG ( test) Ql (U) Negative Negative [facility] Lot Number [id number] [facility] Negative QC Pass/Fail Pass [facility] Positive QC Pass/Fail Pass [facility] Protime-INRon 11-09-2022 INR Coag (Bld) [Relative time] 1.2 {INR} [facility] Interpretation and review of laboratory results Abnormal [facility] PT Coag (PPP) [Time] 12.8 s High [facility] Troponinon 11-09-2022 Troponin, High Sensitivity 7 ng/L 0 - 9 ng/L [facility] Comment on above: High Sensitivity Tro ponin values cannot be compared with other Troponin methodologies. US DUP LOWER EXTREMITY LEFT VENon 11-09-2022 DVT, left posterior tibial vein. Critical results were called by Dr. Sukhdev Loo to Dr. Estelle Clinton on 11/09/2022 at 6:14 p.m. [facility] EXAMINATION: DUPLEX VENOUS ULTRASOUND OF THE [...] normal color flow study and spectral analysis. [facility] Sukhdev Loo MD - 11/09/2022 EXAMINATION: DUPLEX VENOUS ULTRASOUND [...] Estelle Clinton on 11/09/2022 at 6:14 p.m. [employer] Work Phone: Radiology Study observation (narrative) [employer] Work Phone: US DUP LOWER EXTREMITY LEFT VENOrdered By: Sukhdev Loo on 11-09-2022 [employer] Work Phone: Urinalysis with Microscopico n 11-09-2022 Bacteria LM Ql (Urine sed) MANY Abnormal None Seen /HPF [employer] [facility] Bilirubin Ql (U) Negative Negative [facility] [employer] [facility] Clarity (U) SL CLOUDY Clear [employer] [facility] Color (U) Yellow Straw/Yellow [employer] [facility] Epithelial cells LM.HPF (Urine sed) [#/Area] MODERATE /HPF [employer] [facility] Glucose Test strip (U) [Mass/Vol] Negative Negative mg/dL [facility] Hemoglobin Ql (U) Negative Negative [facility] SEC [facility] [employer] Interpretation and review of laboratory results Abnormal [facility] Ketones (U) [Mass/Vol] TRACE Abnormal Negative mg/dL [employer] [facility] Leukocyte esterase Test strip Ql (U) Negative Negative [employer] [facility] Nitrite Ql (U) Negative Negative [employer] [facility] [employer] [facility] pH (U) 6.5 [pH] 5.0 - 9.0 [facility] Protein (U) [Mass/Vol] Negative Negative mg/dL [employer] [facility] RBC LM.HPF (Urine sed) [#/Area] NONE [employer] [facility] Specific gravity (U) [Rel density] 1.025 1.005 - 1.030 [facility] Urobilinogen Qn (U) 0.2 NINF [facility] Bear [facility] WBC LM.HPF (Urine sed) [#/Area] 2-5 [facility] aPTT Coag (Bld) [Time]on [facility] CNOVon 06-29-2018 CNOV Office Visit (GENSWS) NICKI GAMBLE ([id number]) 1990 F Date Time Provider Department 06/29/18 2:10 PM CORA CEVALLOS During your visit today, we recorded the following information about you: Cora Cevallos MD 07/01/2018 6:01 PM Signed Nicki is s/p laparoscopic cholecystectomy surgery at [facility] on 06/21/18 She states that she is [...] 06/29/2018 2:13 PM >> JHOAN ROME LPN [facility] Jun 29, 2018 2:13 PM please d/c ONDANSETRON 4 MG DISINTEGRATING TABLET >> Jhoan Rome LPN 06/29/2018 2:14 PM >> JHOAN ROME GREGORY [facility] Jun 29, 2018 2:14 PM please d/c MISOPROSTOL 200 MCG TABLET >> Jhoan Rome NETWORK SYSTEMS CONSULTANT 06/29/2018 2:14 PM >> JHOAN ROME GREGORY [facility] Jun 29, 2018 2:14 PM Please D/c Problem List As Of Date 06/29/2018 Noted Resolved PCOS (polycystic ovarian syndrome) [E28.2] INVALID FOR* Contraception [Z30.9] INVALID FOR* DVT of leg (deep venous thrombosis) [I82.409] INVALID FOR* Tobacco use disorder [F17.200] Encounter Status:Closed by MD CORA CEVALLOS on 07/01/18 [facility] PROGRESSon 06-29-2018 Protein mass conc HNO ID: [id number] Author: Cora Cevallos Service: (none) Author Type: Physician Type: Progress Notes Filed: 07/01/2018 6:01 PM Note Text: Nicki is s/p laparoscopic cholecystectomy surgery at [facility] on 06/21/18 She states that she is doing well. She denies any problems. Examination: abdomen is soft and benign, wounds are well healed, no evidence of infection Impression: s/p laparoscopic cholecystectomy Plan: follow up as per needed. Patient to return to her primary physician for medical care. [facility] CNOVon 06-20-2018 CNOV Office Visit (GENSWS) NICKI GAMBLE ([id number]) 1990 F Date Time Provider Department 06/20/18 3:00 PM BOZENA ENGLISH) GENABRAMS During your visit today, we recorded the following information about you: Temperature Pulse Blood pressure Weight 98 degrees 80/minute 138/84 143.8 kg Height 1.753 m Bozena English PA-C 06/20/2018 4:25 PM Signed HISTORY AND PHYSICAL Nicki Gamble 1990 REFERRING PHYSICIAN: Mary Ellen Wrightwood Zay* CHIEF COMPLAINT: Consult (Consult gallbladder) HPI: [...] 0 Occupational History Occupation Employer Comment [employer] 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 Social History Main Topics [...] and reviewed by me Nursing Notes: Ritu eHarn LPN 06/20/2018 4:15 PM Signed REVIEW OF [...] Procedure: LAPAROSCOPIC CHOLECYSTECTOMY WITH INTRAOPERATIVE CHOLEANGIOGRAM - [id number] Planned antibiotic: Ancef 3gm IVPB division human resources manager to OR SCDs needed - Yes Aerial Applicator Pilot Needed - Yes Diagnoses: (K80.50) Biliary colic [...] Colonoscopy: none Ritu Hearn LPN Referring Provider: [facility] [[id number]] Allergies As of Date: 06/20/2018 (No Known Allergies) Date Reviewed: 06/20/2018 Reviewed by: Bozena Whitten) - Fully Assessed Reason for Visit: [...] Mammogram screening? 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 Social History Main Topics [...] Procedure: LAPAROSCOPIC CHOLECYSTECTOMY WITH INTRAOPERATIVE CHOLEANGIOGRAM - [id number] Planned antibiotic: Ancef 3gm IVPB division human resources manager to [place] SCDs needed - Yes Aerial Applicator Pilot Needed - Yes Diagnoses: (K80.50) Biliary colic (primary encounter diagnosis) (K80.20) Gallstones (Z86.718) History of DVT (deep vein thrombosis) (E28.2) PCOS (polycystic ovarian syndrome) Bozena English PA-C [facility] Vital Signs Date Time Vital Sign Value Performing Clinician Kristal downs 11-10-2022 15:45-0400 Body temperature 97.3 [degF] Jaime Richardson DO Work Phone: [facility] [employer] 11-10-2022 15:45-0400 Diastolic blood pressure 82 mm[Hg] Jaime Richardson DO Work Phone: [facility] 11-10-2022 15:45-0400 Heart rate 85 /min Jaime Richardson DO Work Phone: [facility] [employer] 11-10-2022 15:45-0400 Respiratory rate 16 /min Jaime Richardson DO Work Phone: [facility] 11-10-2022 15:45-0400 SaO2% (BldA) [Mass fraction] 96 % Jaime Richardson DO Work Phone: [facility] 11-10-2022 15:45-0400 Systolic blood pressure 144 mm[Hg] Jaime Richardson DO Work Phone: [facility] 11-09-2022 19:34-0400 Body height 175.3 cm Jaime Richardson DO Work Phone: [facility] 11-09-2022 19:34-0400 Body mass index (BMI) [Ratio] 59.07 kg/m2 Jaime Richardson DO Work Phone: [facility] 11-09-2022 19:34-0400 Body weight 181.44 kg Jaime Richardson DO Work Phone: [facility] Encounters Encounter Date Encounter Type Care Provider Facility Start: 07-19-2025 ambulatory LUCIA MITCHELL [facility] Start: 02-22-2025 ambulatory Kourtney Yanira Facility :[facility] Start: 01-10-2025 End: 01-10-2025 ambulatory Kourtney Yanira Facility:[facility] Start: 01-01-2025 End: 01-01-2025 ambulatory Kourtney Yanira Facility:[facility] Start: 12-26-2024 End: 12-26-2024 ambulatory [facility] Facility:[facility] Start: 12-08-2024 End: 12-08-2024 ambulatory Kourtney Yanira Facility:[facility] Start: 12-06-2024 End: 12-06-2024 ambulatory [facility] Facility:[facility] Start: 11-28-2024 End: 11-28-2024 ambulatory Kourtney Yanira Facility:[facility] Start: 09-12-2024 End: 09-12-2024 ambulatory Kourtney Yanira Facility:[facility] Start: 07-20-2024 End: 07-20-2024 [facility] Start: 07-20-2024 End: 07-20-2024 Subsequent hospital visit by physician [facility] Fast Track 1 [facility] Comment on above: Pulmonary embolism w ithout acute cor pulmonale, unspecified chronicity, unspecified pulmonary embolism type (HCC) Start: 07-20-2024 Unknown LUCIA MITCHELL [facility] Start: 07-22-2023 End: 07-23-2023 ambulatory LUCIA Mejia [facility] Start: 03-26-2023 End: 03-29-2023 ambulatory CURRY DILL[facility] Start: 02-15-2023 End: 02-15-2023 Subsequent hospital visit by physician Anisha [facility] Fast Track 3 [facility] Med [...] 06-29-2018 End: 07-03-2018 Patient encounter procedure CORA KENNYClaudio CEVALLOS [facility] Start: 06-20-2018 End: 06-21-2018 Patient encounter procedure BOZENA ENGLISH (PA) [facility] Procedures Date Procedure Procedure Detail Performing Clinician [...] 11-09-2022 Dup-scan xtr veins unilateral/limited study Kristine Luis Fernando Arceo DIRECTOR OF PRODUCT MANAGEMENT - OUTSIDE SALES INSPECTOR Start: 11-09-2022 Urine test visual color cmprsn [...] [facility] Start: 08-02-2024 Depression Screen Depression Screen [facility] Start: 08-02-2024 Hemoglobin A1c measurement A1C test (Diabetic or Prediabetic) [facility] [employer] Start: 03-18-2024 GFR test (Diabetes, CKD 3-4, OR last GFR 15-59) GFR test (Diabetes, CKD 3-4, OR last GFR 15-59) [facility] [employer] Start: 02-05-2024 COVID-19 Vaccine ( season) COVID-19 Vaccine ( season) [facility] Start: 2024 Influenza vaccination Flu vaccine (# 1) [employer] Start: 12-31-2023 Depression Screen Depression Screen [facility] [employer] Start: 12-31-2023 Lipid panel Lipids [facility] [employer] Start: 11-11-2023 GFR test (Diabetes, CKD 3-4, OR last GFR 15-59) GFR test (Diabetes, CKD 3-4, OR last GFR 15-59) [facility] Start: 04-06-2023 End: 04-06-2023 Patient encounter procedure 04/06/2023 3:30 PM EDT Office Visit [facility] [address] [place] [address] Lucia Mitchell, DO [address] [place] [address] : Return in about 2 months (around 04/02/2023) for diabetes. [facility] Comment on above: : Return in about 2 months (around 04/02/2023) for diabetes. Start: 04-01-2023 Hemoglobin A1c measurement A1C test (Diabetic or Prediabetic) [facility] Start: 03-18-2023 End: 03-18-2023 Patient encounter procedure [facility] Comment on above: LABS~Dr. Nikko Maier~ 4 wk. f/u w/poss.lab s~ patient req. a Fri. appt. datepatient has MYCHART, does not want AVS Start: 01-04-2023 Influenza vaccination [facility] Start: 12-30-2022 End: 12-30-2022 Patient encounter procedure 12/30/2022 Office Visit Family Medicine Lucia Mitchell, DO [address] [place] [address] [facility] Start: 01-04-2018 Screening for malign ant neoplasm of cervix [facility] Start: 01-04-2009 Screening for malign ant neoplasm of cervix Pap smear [facility] Start: 01-04-2007 DTaP/Tdap/Td vaccine (1 - Tdap) DTaP/Tdap/Td vaccine (1 - Tdap) [facility] Start: 01-04-2007 Pneumococcal 0-49 ye ars Vaccine (1 of 2 - PCV) Pneumococcal 0-49 years Vaccine (1 of 2 - PCV) [facility] Start: 01-04-2006 Glaucoma screening Diabetic retinal exam [facility] Start: 01-04-2006 Hepatitis C screening Hepatitis C sc reen [facility] Start: 01-04-2006 Urine screening for protein Diabetic Alb to Cr ratio (uACR) test [facility] Start: 04-30-2005 Hepatitis A vaccine (2 of 2 - 2-dose series) Hepatitis A vaccine (2 of 2 - 2-dose series) [facility] Start: 02-17-2005 Hepatitis B vaccine (3 of 3 - 3-dose series) Hepatitis B vaccine (3 of 3 - 3-dose series) [facility] Start: 10-29-2004 DTaP/Tdap/Td vaccine (6 - Tdap) DTaP/Tdap/Td vaccine (6 - Tdap) [facility] Start: 01-04-2003 HIV screening HIV screen [facility] Start: 01-04-2001 Varicella vaccine (1 of 2 - 13+ 2-dose series) Varicella vaccine (1 of 2 - 13+ 2-dose series) [facility] Start: 2000 Depression Screen Depression Screen [facility] Start: 01-04-1998 Diabetic foot examination Diabetic foot exam [facility] Start: 01-04-1994 Pneumococcal 0-64 ye ars Vaccine (1 - PCV) Pneumococcal 0-64 years Vaccine (1 - PCV) [facility] Start: 01-04-1989 Varicella vaccine (1 of 2 - 2-dose childhood series) Varicella vaccine (1 of 2 - 2-dose childhood series) [facility] Start: 1990 COVID-19 Vaccine (#1) COVID-19 Vacci ne (#1) [facility] Start: 1990 Hepatitis B vaccine (1 of 3 - 3-dose series) Hepatitis B vaccine (1 of 3 - 3-dose series) [facility] End: 02-15-2023 Beta-2 GlycoProtein 1 Ab,IgG & IgM [facility] Comment on above: 1 Occurrences starti ng 02/15/2023 until 02/15/2023 End: 02-15-2023 Cardiolipin Ab IgG, IgM, IgA [facility] Comment on above: 1 Occurrences starti ng 02/15/2023 until 02/15/2023 EKG 12 Lead EKG 12 Lead ECG STAT 11/09/2022 8:14 PM EDT [employer] Phone: Oxygen therapy [[facility] Data Set] Initiate Oxygen Therapy Protocol Respiratory Care Routine Daily until discontinued starting 11/10/2022 [employer] Phone: Comment on above: Daily until disconti nued starting 11/10/2022 End: 02-15-2023 Protein S Activity [employer] Phone: Comment on above: 1 Occurrences starti ng 02/15/2023 until 02/15/2023 Payers Date Payer Category Payer Self-pay 2020 Unknown [id number] [id number] [id number] 1990 Unknown [id number] 2.16. [id number] 1990 Unknown [id number] 2.16. [id number] 1990 Unknown [id number] 2.16. [id number] 1990 Unknown [id number] 2.16. [id number] 1990 Unknown [id number] 2.16. [id number] Unknown [id number] 2.16.8 [id number] Unknown [id number] 2.16.8 [id number] Unknown [id number] 2.16.8 [id number] Unknown [id number] 2.16.8 [id number] Unknown [id number] 2.16.8 [id number] Unknown [id number] 2.16.8 [id number] Unknown [id number] 2.16.8 [id number] Unknown [id number] 2.16.8 [id number] Unknown [id number] 2.16.8 [id number] Social History Date Type Detail Facility Start: 11-10-2022 End: 08-02-2023 Tobacco smoking status [facility] Ex-smoker [employer] End: 06-06-2019 History of tobacco use Current smoker [employer] Work Phone: End: 06-06-2019 History of tobacco use Cigarette Smoker [employer] Phone: Start: 11-10-2022 End: 08-02-2023 Tobacco use and exposure Smokeless tobacco non-user [employer] Phone: Start: 11-09-2022 History SDOH Alcohol Frequency 1 [employer] Phone: Start: 11-09-2022 History SDOH Alcohol Std Drinks 0 [employer] Phone: Start: 1990 Sex Assigned At Not on file [employer] Phone: Start: 02-15-2023 End: 07-20-2024 Alcohol intake Current drinker of alcohol (finding) [facility] Start: 11-09-2022 End: 12-29-2022 History of Social function [employer] Start: 11-09-2022 End: 12-29-2022 Humiliation, Afraid, Rape, and Kick questionnaire [HARK] Circular Within the last year , have you been afraid of your partner or ex-partner? No Circular How often to you hav e a drink containing alcohol? Never Circular How many standard dr inks containing alcohol do you have on a typical day? Patient does not drink [facility] [employer] (I/We) worried wheth er (my/our) food would run out before (I/we) got money to buy more. Never true [facility] [employer] Start: 02-15-2023 Alcohol Comment occasionally [facility] [employer] Start: 1990 Sex Assigned At Female [facility] Start: 12-29-2022 Gender identity Identifies as female gender (finding) [facility] Start: 12-29-2022 Sexual orientation Heterosexual (finding) [facility] Medical Equipment Procedure Code Equipment Code Equipment Origin al Text Equipment Identifier Dates Dispense suffici ent amount for once daily testing frequency plus additional to accommodate PRN testing needs with ONE TOUCH glucometer. Dispense all needed supplies to include: monitor, strips, lancing device, lancets, control solutions, alcohol swabs. [id number] Start: 01-31-2023 History of Present illness Narrative 07-20-2024 Frankie Mathis RN - 07/20/2024 3:33 PM EST Note Date & Type Note Facility 07-20-2024 History of Presen t illness Narrative Labs drawn peripherally. Dry dressing applied. Patient tolerated well. documented in this encounter [facility] [employer] [facility] History of Present illness Narrative 02-15-2023 Desirae Ac MA - 02/15/2023 8:00 AM EDT Note Date & Type Note Facility 02-15-2023 History of Presen t illness Narrative Labs drawn peripherally. Dry dressing applied. Patient tolerated well. Specimen sent to lab. documented in this encounter [facility] History of Present illness Narrative 11-10-2022 Ruth Toscano RN - 11/10/2022 6:05 PM Jaylon Toscano RN - 11/10/2022 3:30 PM EDTMiladys [...] place Wound referral order by RN under DIRECTOR OF PRODUCT MANAGEMENT: No New Ostomies, if present place, Ostomy referral order under DIRECTOR OF PRODUCT MANAGEMENT: No Nurse 1 eSignature: SHARE this note so that the co-signing nurse can place an eSignature Nurse 2 eSignature: documented in this encounter [facility] [employer] Phone: Hospital course Narrative 11-10-2022 Marco Antonio [...] close follow-up of lung nodule. Transition to Eliquis at discharge. She complained of lower back/tail [...] Folate and B12: No results found for: [id number], No results found for: FOLATE Thyroid Studies: No results found for: TSH, [id number], [id number], THYROIDAB Urinalysis: Lab Results Component Value Date/Time [...] Medications These medications were sent to [facility] [place] [address] Ritesh Antonio - P [phone] - F [phone] [facility] Ritesh Antonio, [facility] [id number] apixaban 5 MG Tabs tablet apixaban 5 MG Tabs tablet Time Spent on discharge is more than 35 minutes in the examination, evaluation, counseling and review of medications and discharge plan. +++++++++++++++++++++++++++++++++ ++++++++++++++++ Marco Antonio Toro MD [facility] Physician - Hospitalist [facility] [place], [place] +++++++++++++++++++++++++++++++++ ++++++++++++++++ NOTE: This report was transcribed using voice recognition software. Every effort was made to ensure accuracy; however, inadvertent computerized wellness guide errors may be present. documented in this encounter [employer] Phone: Evaluation note Note Date & Type [...] other intrathoracic organs documented in this encounter [employer] Phone: Evaluation note Note Date & Type Note Facility Evaluation note Diagnosis Pulmonary embolism without acute cor pulmonale, unspecified chronicity, unspecified pulmonary embolism type (HCC) documented in this encounter [employer] Evaluation note Note Date & Type Note Facility Evaluation note Diagnosis Pulmonary embolism without acute cor pulmonale, unspecified chronicity, unspecified pulmonary embolism type (HCC) documented in this encounter [employer] Summary Purpose Family History No Family History [...] section and content) DATE CREATED AUTHOR 07/16/2018 [facility] DATE CREATED AUTHOR AUTHOR'S ORGANIZ ATION 08/03/2023 [facility] DATE CREATED AUTHOR AUTHOR'S ORGANIZ ATION 07/22/2024 [facility] DATE CREATED AUTHOR AUTHOR'S ORGANIZ ATION 02/21/2025 [facility] Reason for Visit (unrecogniz ed section and content) Reason Comments Leg Swelling LLE, hx blood clot, may have another one, lower back and ass pain - thinners, 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
Care Teams (unrecognized sec tion and content) Thread Trimmer Relationship Specialty Start Date End Date Lucia Mitchell DO [address] [place] [address] PCP - General Internal Medicine 12/30/22 Thread Trimmer Relationship Specialty Start Date End Date Lucia Mitchell DO PCP - General Internal Medicine [...] BE BASED ON THE PRIMARY CLINICAL RECORDS. [facility] [employer] [facility]. provides no warranty or guarantee of the accuracy or completeness of information in this document.
== END | disposition home or self-care (01) ==
LOC: CVS 15:01
PROVIDERS: PCP Internal Medicine; Referring Provider Internal Medicine; Visit Provider Internal Medicine
DX: R01.1 Cardiac murmur, unspecified (principal)
CPT/HCPCS: 93306; Q9957; A4216; C8929